=== PATIENT | male | born 1975 | race American Indian/Alaskan Native ===

== ENCOUNTER 2016-09-30 11:13 | Emergency (ER) | payer OTHER ==
[2016-09-30 11:17] VITALS: BP 113/87; PULSE 77; TEMP 98.1; BMI 35.2
== END 2016-09-30 14:06 | disposition left against medical advice (07) ==
LOC: JER 11:13
DX: Z53.21 Procedure and treatment not carried out due to patient leaving prior to being seen by health care provider (principal)
CPT/HCPCS: 99283-25

== ENCOUNTER 2017-02-21 18:56 | Emergency (ER) | payer OTHER ==
[2017-02-21 19:11] VITALS: BP 169/113; PULSE 92; TEMP 98.7; BMI 34.7
[2017-02-21] MEDS ORDERED: ONDANSETRON 4 MG/2 ML VIAL IVPB ONE (19:12)
[2017-02-21] MEDS ORDERED: morphine CARPU-JECT 4 MG/1 ML DISP.SYRIN IVPUSH ONE ×2 (19:12→20:07)
[2017-02-21 19:29] LABS: BASOPHIL 0.3 % (0-2.0); EOSINOPHIL 5.7 % (0-4.5); MCH 22.5 pg (25.7-33.7); MCHC 31.8 g/dl (32.0-35.9); MEAN CELL VOLUME 70.9 fl (80-96); MEAN PLT VOLUME 8.8 fl (7.5-11.1); NEUTROPHILS 52.9 % (42.8-82.8); PLATELET COUNT 187 K/MM3 (134-434); RDW 14.3 % (11.9-15.9)
[2017-02-21] MEDS ORDERED: ONDANSETRON 4 MG/2 ML VIAL IVPUSH ONE (19:36)
[2017-02-21] MEDS ORDERED: KETOROLAC TROMETHAMINE 30 MG/1 ML VIAL IVPUSH ONE (19:36)
[2017-02-21 19:46] LABS: INR 1.12 (0.82-1.09); PROTHROMBIN TIME (PATIENT) 12.4 SEC (9.98-11.88)
--- NOTE | 2017-02-21 19:50 | PDOC ---
History of Present Illness - General Chief Complaint: Pain, Acute Stated Complaint: PASSED OUT Time Seen by Provider: 02/21/17 19:04 History Source: Patient Exam Limitations: No Limitations - History of Present Illness Initial Comments: 02/21/17 19:44 Patient is a 41M with history of seizures, alcohol abuse and HCV s/p lakeisha here today complaining of abdominal and flank pain with urinary retention. He endorses associated nausea, shortness of breath and blood in urine. He states that he hasn't urinated since last night. He says the pain started around noon today. He says that he is short of breath because it hurts to take a deep breath in. He denies any seizure activity, chest pain. He's never had any surgery on his abdomen. He reports that he doesn't drink anymore and does not take anything for his seizures. Past History - Past Medical History Allergies/Adverse Reactions: Allergies Allergy/AdvReac Type Severity Reaction Status Date / Time phenytoin sodium extended Allergy Intermediate Itching Verified 02/21/17 18:59 [From Dilantin] Home Medications: Ambulatory Orders Ibuprofen [Motrin -] 600 mg PO TID PRN #60 tablet MDD 3 02/21/17 Oxycodone HCl/Acetaminophen [Percocet 5-325 mg Tablet] 1 tab PO Q6H #15 tablet MDD 4 02/21/17 Liver Disease: Yes Seizures: Yes - Surgical History Neurologic Surgery: Yes - Suicide/Smoking/Psychosocial Hx Smoking History: Current every day smoker Have you smoked in the past 12 months: Yes Number of Cigarettes Smoked Daily: 20 Information on smoking cessation initiated: No 'Breaking Loose' booklet given: 09/30/16 Hx Alcohol Use: No Drug/Substance Use Hx: No Substance Use Type: None Review of Systems - Review of Systems Comments:: 02/21/17 19:50 GENERAL/CONSTITUTIONAL: No fever or chills. No weakness. HEAD, EYES, EARS, NOSE AND THROAT: No change in vision. No sore throat. CARDIOVASCULAR: No chest pain. Positive for shortness of breath RESPIRATORY: No cough, wheezing, or hemoptysis. GASTROINTESTINAL: Positive for nausea. Negative for vomiting, diarrhea or constipation. GENITOURINARY: Bloody discharge with urination and urinary retention MUSCULOSKELETAL: No joint or muscle swelling or pain. No neck or back pain. SKIN: No rash NEUROLOGIC: No headache, vertigo, loss of consciousness, or change in strength/ sensation. ENDOCRINE: No increased thirst. No abnormal weight change HEMATOLOGIC/LYMPHATIC: No anemia, easy bleeding, or history of blood clots. ALLERGIC/IMMUNOLOGIC: No hives or skin allergy. *Physical Exam - Vital Signs Last Vital Signs Temp Pulse Resp BP Pulse Ox 98.7 F 92 H 24 169/113 99 02/21/17 18:59 02/21/17 18:59 02/21/17 18:59 02/21/17 18:59 02/21/17 18:59 - Physical Exam Comments: 02/21/17 19:51 GENERAL: Awake, alert, and fully oriented, in acute distress, moaning and rolling in bed HEAD: No signs of trauma, normocephalic, atraumatic EYES: PERRLA, EOMI, sclera anicteric, conjunctiva clear ENT: Auricles normal inspection, hearing grossly normal, nares patent, oropharynx clear without exudates. Moist mucosa NECK: Normal ROM, supple, no lymphadenopathy, JVD, or masses LUNGS: No distress, speaks full sentences, clear to auscultation bilaterally HEART: Regular rate and rhythm, normal S1 and S2, no murmurs, rubs or gallops, peripheral pulses normal and equal bilaterally. ABDOMEN: Soft, distractable suprapubic pain, normoactive bowel sounds. No CVA tenderness. No guarding, no rebound. No masses EXTREMITIES: Normal inspection, Normal range of motion, no edema. No clubbing or cyanosis. NEUROLOGICAL: Cranial nerves II through XII grossly intact. Normal speech, no focal sensorimotor deficits, no parathesias SKIN: Warm, Dry, normal turgor, no rashes or lesions noted. Procedures - Bedside Ultrasound Other: Kidney and Bladder Remarks: 02/21/17 20:21 Mild hydronephrosis of left kidney, 1cm stone at UVJ, 33cc in bladder ED Treatment Course - LABORATORY CBC & Chemistry Diagram: 02/21/17 19:10 02/21/17 19:10 - ADDITIONAL ORDERS Additional order review: 02/21/17 19:10 RBC 6.11 H MCV 70.9 L MCHC 31.8 L RDW 14.3 MPV 8.8 Neutrophils % 52.9 Lymphocytes % 30.7 Monocytes % 10.4 H Eosinophils % 5.7 H Basophils % 0.3 Medical Decision Making - Medical Decision Making 02/21/17 19:52 41M with history of etoh abuse, ? hep c, and seizures here today complaining of abdominal pain. Tachycardic and tachypneic, other vital signs stable. Exam not consistent with peritonitis. Differential diagnosis includes, but is not limited to: urinary retention, kidney stones, uti. Will treat pain with toradol and zofran. Will evaluate with labs, ekg, bladder scan, and spiral ct. 02/21/17 20:10 Bedside ultrasound shows 1cm stone in bladder and mild hydronephrosis on left side. Bladder volume 33cc. 02/21/17 21:34 Laboratory Tests 02/21/17 02/21/17 19:10 19:10 WBC 7.0 Hgb 13.8 Hct 43.3 Plt Count 187 BUN 16 D Creatinine 1.6 H D CBC normal. Cr elevated to 1.6, baseline 0.7 02/21/17 22:20 CT shows mild left sided hydronephrosis with no stone in the the kidney or ureter. 3mm stone is identified in the bladder. 02/22/17 06:30 Patient improved after reassessment. Discharged with percocet. Alert, ambulatory and improved at discharge. *DC/Admit/Observation/Transfer Diagnosis at time of Disposition: Kidney stone - Discharge Dispostion Disposition: HOME Condition at time of disposition: Good Admit: No - Prescriptions Prescriptions: Ibuprofen [Motrin -] 600 mg PO TID PRN #60 tablet MDD 3 PRN Reason: Pain Oxycodone HCl/Acetaminophen [Percocet 5-325 mg Tablet] 1 tab PO Q6H #15 tablet MDD 4 - Referrals Referrals: Liana Joseph MD [Primary Care Provider] - Macho Tripathi MD [Staff Physician] -
[2017-02-21 19:54] LABS: ALBUMIN 3.8 g/dl (3.4-5.0); ALK PHOS 132 U/L (45-117); ANION GAP 5 (8-16); BILIRUBIN,TOTAL 0.2 mg/dL (0.2-1.0); CALCIUM 9.2 mg/dL (8.5-10.1); CO2 28 mmol/L (21-32); CREATININE 1.6 mg/dL (0.7-1.3); GLUCOSE,RANDOM 102 mg/dL (74-106); SGOT/AST 17 U/L (15-37); SGPT/ALT 30 U/L (12-78); TOT PROT 7.7 g/dl (6.4-8.2)
[2017-02-21] MEDS ORDERED: KETOROLAC TROMETHAMINE 30 MG/1 ML VIAL ONE (19:58)
[2017-02-21] MEDS ORDERED: ONDANSETRON 4 MG/2 ML VIAL ONE (19:58)
[2017-02-21] MEDS ORDERED: SODIUM CHLORIDE 1,000 ML IV STA (20:07)
[2017-02-21] MEDS ORDERED: morphine CARPU-JECT 2 MG/1 ML DISP.SYRIN ONE (20:09)
--- NOTE | 2017-02-21 20:24 | PDOC ---
Attending Attestation - Resident Resident Name: Benedicto Millard - ED Attending Attestation I have performed the following: I have examined & evaluated the patient, The case was reviewed & discussed with the resident, I agree w/resident's findings & plan, Exceptions are as noted - HPI HPI: 02/21/17 20:20 41 yo male with h/o seizure disorder here today with c/o flank pain. started last pm. radiates around to front. also c/o hematuria. and dysuria, frequency, and decreased urine output. difficulty with urination. no f/c nauseau, no vomiting. no mod factors. no trauma. no seizure recently. no known h/o renal colic, but neice with stones. - Physicial Exam PE: 02/21/17 20:21 awake alert uncomfortable. lungs clear bilat. heart rrr no mrg.a bd soft. mild mid left mid quad ttp. no rebound no guarding. left cva ttp. - Medical Decision Making 02/21/17 20:24 differential back strain. uti pyelo, renal colic. plan bedside renal us. labs pain control. possible ct. 02/21/17 20:35 focused ED ultrasound renal indication : flank pain. bilateral kidneys scanned bilaterally. mild left hydronephrosis noted. right kidney normal. 1 cm stone noted at uvj of bladder. bladder volume 33 ml. impression: 1 cm. uvj stone, mild left hydronephrosis 02/21/17 22:46 pt with stone on ct. feeling improved. ua negative. dc home given number for urology Heart Score/ECG Review #1 General ECG Interpretation: Sinus Rhythm, Normal Rate (68), Normal Intervals, No acute ischemic changes
[2017-02-21 21:49] LABS: URINE APPEARANCE SLCLOUDY; URINE BILIRUBIN NEGATIVE (NEGATIVE); URINE BLOOD 2+ (NEGATIVE); URINE COLOR YELLOW; URINE GLUCOSE (UA) NEGATIVE (NEGATIVE); URINE KETONE NEGATIVE (NEGATIVE); URINE NITRITE NEGATIVE (NEGATIVE); URINE UROBILINOGEN NEGATIVE mg/dL (0.2-1.0)
[2017-02-21 22:06] LABS: URINE PROTEIN 2+ (NEGATIVE)
[2017-02-21 22:08] LABS: URINE BACTERIA RARE /hpf (NONE SEEN); URINE MUCUS RARE; URINE RBC 143 /hpf (0-3); URINE WBC 1 /hpf (3-5)
[2017-02-22 11:33] LABS: URINE LEUK ESTERASE Negative (NEGATIVE)
--- NOTE | 2017-02-22 19:06 | EKG ---
Test Reason : Blood Pressure : / mmHG Vent. Rate : 068 BPM Atrial Rate : 068 BPM P-R Int : 160 ms QRS Dur : 098 ms QT Int : 394 ms P-R-T Axes : 028 027 006 degrees QTc Int : 418 ms NORMAL SINUS RHYTHM NONDIAGNOSTIC Q WAVES IN II III aVF PROBABLE EARLY REPOLARIZATION,CURRENT OF INJURY CANNOT BE EXCLUDED WHEN COMPARED WITH ECG OF 01 MAY 2016 CHANGES MENTIONED ABOVE RECOMMEND FOLLOW UP TRACING Confirmed by RADHA LYONS MD ([id number]) on 02/22/2017 7:05:55 PM Referred By: Confirmed By:RADHA LYONS MD
== END 2017-02-21 23:15 | disposition home or self-care (01) ==
LOC: JER 18:56
PROC: 3E0333Z Introduction of Anti-inflammatory into Peripheral Vein, Percutaneous Approach (ICD-10-PCS; principal; 2017-02-21)
PROC: 3E033NZ Introduction of Analgesics, Hypnotics, Sedatives into Peripheral Vein, Percutaneous Approach (ICD-10-PCS; 2017-02-21)
PROC: 3E033GC Introduction of Other Therapeutic Substance into Peripheral Vein, Percutaneous Approach (ICD-10-PCS; 2017-02-21)
PROC: 3E0337Z Introduction of Electrolytic and Water Balance Substance into Peripheral Vein, Percutaneous Approach (ICD-10-PCS; 2017-02-21)
DX: N20.0 Calculus of kidney (principal); F17.210 Nicotine dependence, cigarettes, uncomplicated
CPT/HCPCS: 36415; 74176; 80053; 81003; 81015; 83690; 85025; 85610; 87086; 93005; 93010; 96361; 96374; 96375; 96376; 99282-25

== ENCOUNTER 2017-07-01 13:56 | Emergency (ER) | payer OTHER ==
[2017-07-01 14:06] VITALS: BP 160/98; PULSE 75; TEMP 97.8; BMI 35.5
--- NOTE | 2017-07-01 15:33 | PDOC ---
History of Present Illness - General Chief Complaint: Ear Problem Stated Complaint: EAR PROBLEM Time Seen by Provider: 07/01/17 15:03 History Source: Patient Exam Limitations: No Limitations - History of Present Illness Initial Comments: 07/01/17 15:28 c/o right ear pain pressure and muffled hearing for one week. pt [facility]. no fever no sore throat no chills Past History - Past Medical History Allergies/Adverse Reactions: Allergies Allergy/AdvReac Type Severity Reaction Status Date / Time phenytoin sodium extended Allergy Intermediate Itching Verified 07/01/17 14:02 [From Dilantin] Home Medications: Ambulatory Orders Ibuprofen 800 mg PO TID PRN #20 tablet 07/01/17 Neomycin/Polymyxn/Hc [Cortisporin Otic Suspenstion -] 4 drop AD Q4HWA #1 bottle 07/01/17 COPD: No Kidney Stones: Yes Liver Disease: Yes Seizures: Yes - Surgical History Neurologic Surgery: Yes - Suicide/Smoking/Psychosocial Hx Smoking History: Current every day smoker Have you smoked in the past 12 months: Yes Number of Cigarettes Smoked Daily: 30 Information on smoking cessation initiated: Yes 'Breaking Loose' booklet given: 07/01/17 Hx Alcohol Use: No Drug/Substance Use Hx: No Substance Use Type: None Review of Systems - Review of Systems Able to Perform ROS?: Yes Is the patient limited Guinean proficient: No Constitutional: No: Symptoms Reported HEENTM: Yes: Symptoms Reported *Physical Exam - Vital Signs Last Vital Signs Temp Pulse Resp BP Pulse Ox 97.8 F 75 18 160/98 100 07/01/17 14:04 07/01/17 14:04 07/01/17 14:04 07/01/17 14:04 07/01/17 14:04 - Physical Exam General Appearance: Yes: Nourished, Appropriately Dressed HEENT: positive: EOMI, CM, TMs Normal, Pharynx Normal, TM Erythema (external canal with narrowing redness, dried discharge with blood, tm unable to visualize due to narrowing of canal), Other (neg mastoid tenderness, neg swelling pre and post auricular nodes ). negative: Pharyngeal Erythema, Nasal Congestion Neck: positive: Supple Respiratory/Chest: positive: Lungs Clear, Normal Breath Sounds Cardiovascular: positive: Regular Rhythm, Regular Rate Musculoskeletal: positive: Normal Inspection Extremity: positive: Normal Capillary Refill Integumentary: positive: Normal Color, Dry, Warm Medical Decision Making - Medical Decision Making 07/01/17 15:36 cc: earpain with muffled hearing for one week neg fever or chills exam consistent with AOE will prescribe cortisporin drops and ibuprofen 800mg every 8hrs for pain *DC/Admit/Observation/Transfer Diagnosis at time of Disposition: Otitis externa Qualifiers: Otitis externa type: diffuse Chronicity: acute Laterality: right Qualified Code (s): H60.311 - Diffuse otitis externa, right ear - Discharge Dispostion Disposition: HOME Condition at time of disposition: Good - Prescriptions Prescriptions: Ibuprofen 800 mg PO TID PRN #20 tablet PRN Reason: Pain Neomycin/Polymyxn/Hc [Cortisporin Otic Suspenstion -] 4 drop AD Q4HWA #1 bottle - Referrals Referrals: Liana Joseph MD [Primary Care Provider] - Gilberto Roger MD [Staff Physician] - - Patient Instructions Additional Instructions: use the ear drops as prescribed noting in the ear but the ear drops follow tomorrow with ENT as planned take motrin 800mg every 8hrs for pain as needed - Post Discharge Activity
== END 2017-07-01 15:36 | disposition home or self-care (01) ==
LOC: JERFT 13:56
DX: H66.001 Acute suppurative otitis media without spontaneous rupture of ear drum, right ear (principal)
CPT/HCPCS: 99281-25

== ENCOUNTER 2018-01-25 00:07 | Inpatient (IN) | payer MEDICARE, OTHER ==
--- NOTE | 2018-01-25 00:22 | PDOC ---
Attending Attestation - Resident Resident Name: Chantale Seaman - HPI HPI: 01/25/18 00:56 Pt presents to the ED in respiratory arrest, with his hands around his neck as though he was choking. As per nephew, patient was in her usual state of health until he was eating dinner. Nephew was not eating with him, but the nephew found the patient behaving as if he was choking. - Physicial Exam PE: 01/25/18 00:59 Patient was dusky and in respiratory distress with both hands around his neck in the sign for choking on arrival to the ED. Placed on a stretcher and hemlich manuver attempted without success. Intubated for respiratory failure and airway protection. During intubation , his tongue and vocal cords were noted to be edematous. No foreign body visualized on intubation. 01/25/18 01:02 - Critical Care Time Total Critical Care Time: 45 Critical Care Statement: The care of this patient involved high complexity decision making to prevent further life threatening deterioration of the patient 's condition and/or to evaluate & treat vital organ system(s) failure or risk of failure. - Medical Decision Making 01/25/18 01:01 Pt presents to the ED in respiratory distress, apparently choking. Intubated for respiratory failure. Differential includes angioedema or anaphyalxis, airway foreign body, less likely airway infection. Will check CT head and CT soft tissue neck and CXR and labs. Will admit to ICU. 01/25/18 01:02
[2018-01-25] MEDS ORDERED: MIDAZOLAM HCL 2 MG/2 ML SINGLE DOSE VIAL ONE (00:25)
[2018-01-25] MEDS ORDERED: methylPREDNISolone NA SUCC 125 MG/2 ML VIAL IVPB ONE (00:45)
--- NOTE | 2018-01-25 00:47 | PDOC ---
History of Present Illness - General Chief Complaint: Respiratory Arrest Stated Complaint: SEIZURE Time Seen by Provider: 01/25/18 00:22 History Source: Family Exam Limitations: Clinical Condition - History of Present Illness Initial Comments: 01/25/18 00:42 This is a 42 YOM who presented to the ED in severe respiratory distress with his hands around his throat as though he were choking. 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 This occurred just subsequent to the patient eating at home. On arrival to the ED, the patient cannot speak, is actively turning cyanotic, severe distress, clutching his throat. 01/25/18 01:00 Patient's records could not be reviewed at the time of presentation to the ED 2/ 2 clinical acuity. On review of prior [facility] records, he has h/o EtOH use, seizures, HCV s/p Harvoni treatment. Allergies to phenytoin XR. Past History - Past Medical History Allergies/Adverse Reactions: Allergies Allergy/AdvReac Type Severity Reaction Status Date / Time phenytoin sodium extended Allergy Intermediate Itching Verified 07/01/17 14:02 [From Dilantin] Home Medications: Ambulatory Orders Ibuprofen 800 mg PO TID PRN #20 tablet 07/01/17 Neomycin/Polymyxn/Hc [Cortisporin Otic Suspenstion -] 4 drop AD Q4HWA #1 bottle 07/01/17 Amoxicillin - [Amoxicillin 500mg Capsule -] 500 mg PO TID 01/25/18 Minocycline HCl 75 mg PO DAILY 01/25/18 Prednisone 10 mg PO ASDIR 01/25/18 Varenicline Tartrate [Chantix] 0.5 mg PO ASDIR 01/25/18 COPD: No Kidney Stones: Yes Liver Disease: Yes Seizures: Yes - Surgical History Neurologic Surgery: Yes - Suicide/Smoking/Psychosocial Hx Smoking History: Unknown if ever smoked Have you smoked in the past 12 months: Yes Number of Cigarettes Smoked Daily: 30 'Breaking Loose' booklet given: 07/01/17 Hx Alcohol Use: No Drug/Substance Use Hx: No Substance Use Type: None Review of Systems - Review of Systems Able to Perform ROS?: No (clinical condition) *Physical Exam - Vital Signs Last Vital Signs Temp Pulse Resp BP Pulse Ox 130 H 186/130 90 L 01/25/18 00:10 01/25/18 00:10 01/25/18 00:10 - Physical Exam General Appearance: Yes: Severe Distress, Other (in severe respiratory distress , clutching throat with both hands, cyanotic) HEENT: positive: EOMI, Other (bilateral moderate scleral injection). negative: Scleral Icterus (R), Scleral Icterus (L) Neck: positive: Trachea midline, Other (fullness and firmness to the midsaggital inferior mandible). negative: Tender Respiratory/Chest: positive: Respiratory Distress (severe), Stridor, Other ( facial cyanosis, unable to protect airway, severely diminished breath sounds bilaterally) Cardiovascular: positive: Regular Rhythm, S1, S2, Tachycardia. negative: Edema , JVD Vascular Pulses: Femoral (R): 2+, Femoral (L): 2+ Gastrointestinal/Abdominal: positive: Normal Bowel Sounds, Soft, Protuberent. negative: Organomegaly, Pulsatile Mass, Guarding Musculoskeletal: positive: Normal Inspection. 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 teacher II-XII NML intact (grossly), Alert, Motor Strength 5/5 , Other (panicked mood) Procedures - Intubation Time of Intubation: 00:31 Intubation Method: orotracheal Blade used: Mac Tube Size (Fr): 7.5 Medications: Etomidate, Succinylcholine Tube position @ lip (cm): 22 Tube position confirmed by: Direct visualization, CO2 detector, Chest x-ray, Breath sounds Breath Sounds after Intubation: equal Intubation Complications: no complications Post Intubation Xray: Yes ED Treatment Course - LABORATORY CBC & Chemistry Diagram: 01/25/18 01:20 01/25/18 01:20 Medical Decision Making - Medical Decision Making Pt p/w respiratory arrest from apparent airway obstruction. ED staff attempts Heimlich maneuver multiple times; patient remains clenching throat and in distress. Patient becomes lethargic, still clutching throat, unable to protect airway, appears to be losing consciousness. Upward leftward gaze deviation with nystagmus is noted prior to medication administration. Exam: As noted in Physical Exam section. DDX IBNLT: Airway obstruction d/t inhaled FB, angioedema, edema/swelling, Que 's angina, airway trauma; pneumothorax, etc. W/U ordered: Monitor, EKG, CXR, Labs TX ordered: O2, AmbuBag, Large bore IV Procedures done: Intubation Vital Signs Temperature Pulse Rate 130 H 01/25/18 00:10 Respiratory Rate 18 01/25/18 00:30 Blood Pressure 186/130 01/25/18 00:10 O2 Sat by Pulse Oximetry (%) 90 L 01/25/18 00:10 01/25/18 00:10 20 mg etomidate given IV push; patient incomplete sedation. 01/25/18 00:11 Additional 10 mg etomidate given. Immediately afterward full dose succinylcholine given. 01/25/18 00:11 7.5 ET tube placed using Mac 4, direct visualization, edematous tongue/ epiglottis/vocal cords, 22 at teeth. +tube condensation, color change, bilateral wet breath sounds but equal, no epigastric sounds. 01/25/18 00:28 Propofol given IV push as patient becoming more agitated, attempting to grab tube. Very agitated and must be held down by 4 staff members. Patient clenching tube in teeth, unable to suction within tube, increasing agitation. 01/25/18 00:31 100 mg rocuronium given as patient is still clenched on ET tube. Subsequently well sedated and paralyzed. Breath sounds re-checked and remain equal bilaterally, no epigastric sounds. Patient satting well. CXR portable done and awaiting population into PACS. 01/25/18 01:05 Patient's care endorsed to Dr. Deandra Monk at the end of my shift. Pending full workup and admission, likely ICU. *DC/Admit/Observation/Transfer Diagnosis at time of Disposition: Respiratory arrest, Airway obstruction - Discharge Dispostion Condition at time of disposition: Guarded - Referrals - Patient Instructions - Post Discharge Activity
[2018-01-25] MEDS ORDERED: ROCURONIUM BROMIDE 50 MG/5 ML VIAL IV ONE ×2 (01:29→02:50)
[2018-01-25] MEDS ORDERED: ETOMIDATE 40 MG/20 ML VIAL IVPUSH ONE (01:29)
[2018-01-25] MEDS ORDERED: SUCCINYLCHOLINE CHLORIDE 200 MG/10 ML VIAL IVPUSH ONE (01:29)
[2018-01-25 01:32] LABS: URINE APPEARANCE CLEAR; URINE BILIRUBIN NEGATIVE (<2.0 mg/dL); URINE COLOR YELLOW; URINE GLUCOSE (UA) NEGATIVE (NEGATIVE); URINE KETONE NEGATIVE (NEGATIVE); URINE LEUK ESTERASE NEGATIVE (NEGATIVE); URINE NITRITE NEGATIVE (NEGATIVE); URINE PROTEIN 2+ (NEGATIVE); URINE UROBILINOGEN NEGATIVE mg/dL (0.2-1.0)
[2018-01-25 01:34] LABS: BASO % 0.3 % (0-2.0); EOS % 4.7 % (0-4.5); LYMPH % 28.3 % (8-40); MCHC 32.6 g/dl (32.0-35.9); MEAN CELL VOLUME 70.7 fl (80-96); MEAN PLT VOLUME 8.2 fl (7.5-11.1); MONO % 9.1 % (3.8-10.2); NEUT % 57.6 % (42.8-82.8); PLATELET COUNT 200 K/MM3 (134-434); RBC 6.08 M/mm3 (4.00-5.60); WHITE BLOOD COUNT 7.1 K/mm3 (4.0-10.0)
[2018-01-25 01:36] LABS: EPI CELLS RARE /HPF (FEW); URINE BACTERIA FEW /hpf (NONE SEEN); URINE HYALINE CAST 4 /lpf; URINE MUCUS FEW
[2018-01-25] MEDS: PROPOFOL 1,000,000 MCG/100 ML VIAL IVPB SCH ×6 (01:44→17:43)
[2018-01-25 01:50] LABS: VENOUS PH 7.27 (7.32-7.42)
[2018-01-25 01:51] LABS: VENOUS PO2 75.9 mmHg (28-48)
[2018-01-25 01:55] LABS: ALBUMIN 3.8 g/dl (3.4-5.0); ANION GAP 6 MMOL/L (8-16); BILIRUBIN,TOTAL 0.5 mg/dL (0.2-1.0); BLOOD UREA NITROGEN 15 mg/dL (7-18); CALCIUM 8.4 mg/dL (8.5-10.1); CHLORIDE 103 mmol/L (98-107); CO2 28 mmol/L (21-32); CREATININE 0.6 mg/dL (0.7-1.3); GLUCOSE,RANDOM 126 mg/dL (74-106); SGPT/ALT 56 U/L (12-78); SODIUM 137 mmol/L (136-145); TOT PROT 7.8 g/dl (6.4-8.2)
[2018-01-25 01:55] LABS: VENOUS PC02 60.4 mmHg (38-52)
[2018-01-25 01:58] LABS: ALK PHOS 120 U/L (45-117); POTASSIUM 3.8 mmol/L (3.5-5.1); SGOT/AST 32 U/L (15-37)
[2018-01-25 02:04] LABS: INR 1.05 (0.83-1.09); PROTHROMBIN TIME (PATIENT) 11.9 SEC (9.7-13.0)
[2018-01-25 02:06] LABS: ACTIVATED PTT 30.5 SECONDS (25.2-36.5)
--- NOTE | 2018-01-25 02:25 | PDOC ---
*Physical Exam - Vital Signs Last Vital Signs Temp Pulse Resp BP Pulse Ox 130 H 18 186/130 90 L 01/25/18 00:10 01/25/18 00:30 01/25/18 00:10 01/25/18 00:10 - Physical Exam Comments: General: Intubated, sedated HEENT: Copious secretions, ETT in place, submandibular tissue w/ fullness Cards: RRR, no murmur appreciated Pulm: Intubated Abd: Soft, nontender, nondistended Ext: Atraumatic. No LE edema. Vasc: Extremities WWP. Neuro: Sedated, CN grossly intact ED Treatment Course - LABORATORY CBC & Chemistry Diagram: 01/25/18 01:20 01/25/18 01:20 - ADDITIONAL ORDERS Additional order review: Laboratory Results 01/25/18 01/25/18 01/25/18 01:40 01:20 01:20 PT with INR 11.90 INR 1.05 PTT (Actin FS) 30.5 VBG pH 7.27 L POC VBG pCO2 60.4 H* POC VBG pO2 75.9 H Mixed VBG HCO3 26.7 H Sodium Potassium Chloride Carbon Dioxide Anion Gap BUN Creatinine Creat Clearance w eGFR Random Glucose Lactic Acid Calcium Total Bilirubin AST ALT Alkaline Phosphatase Creatine Kinase Creatine Kinase Index CK-MB (CK-2) Troponin I Total Protein Albumin Urine Color Yellow Urine Appearance Clear Urine pH 5.0 D Ur Specific [place] 1.021 Urine Protein 2+ H Urine Glucose (UA) Negative Urine Ketones Negative Urine Blood Negative Urine Nitrite Negative Urine Bilirubin Negative Urine Urobilinogen Negative Ur Leukocyte Esterase Negative Urine WBC (Auto) 2 Urine RBC (Auto) 1 Ur Epithelial Cells Rare Urine Bacteria Few Hyaline Casts 4 Urine Mucus Few 01/25/18 01/25/18 01:20 01:20 PT with INR INR PTT (Actin FS) VBG pH POC VBG pCO2 POC VBG pO2 Mixed VBG HCO3 Sodium 137 Potassium 3.8 Chloride 103 Carbon Dioxide 28 Anion Gap 6 L BUN 15 Creatinine 0.6 L Creat Clearance w eGFR > 60 Random Glucose 126 H D Lactic Acid 1.1 Calcium 8.4 L Total Bilirubin 0.5 AST 32 D ALT 56 D Alkaline Phosphatase 120 H Creatine Kinase 153 Creatine Kinase Index 0.9 CK-MB (CK-2) 1.52 Troponin I < 0.02 Total Protein 7.8 Albumin 3.8 Urine Color Urine Appearance Urine pH Ur Specific [place] Urine Protein Urine Glucose (UA) Urine Ketones Urine Blood Urine Nitrite Urine Bilirubin Urine Urobilinogen Ur Leukocyte Esterase Urine WBC (Auto) Urine RBC (Auto) Ur Epithelial Cells Urine Bacteria Hyaline Casts Urine Mucus 01/25/18 01:20 RBC 6.08 H MCV 70.7 L MCHC 32.6 RDW 14.0 MPV 8.2 Neutrophils % 57.6 Lymphocytes % 28.3 Monocytes % 9.1 Eosinophils % 4.7 H Basophils % 0.3 - Medications Given in the ED: ED Medications Discontinued Medications Generic Name Dose Route Start Last Admin Trade Name Freq PRN Reason Stop Dose Admin Rocuronium [place] 100 mg 01/25/18 01:29 01/25/18 01:54 Zemuron - IV 01/25/18 01:30 100 mg ONCE ONE Administration Medical Decision Making - Medical Decision Making 01/25/18 02:22 Juarez Sweeney is a 42yo man with a h/o alcoholic seizure, current smoking who was brought to the ED by his nephew. On presentation, his hands were to his throat as though he was choking, and he was noted to be cyanotic. - The heimlich was attempted without success - Mr Sweeney became unconscious, and he was intubated. Edema to the tongue, epiglottis and vocal cords was noted - He continued to have copious secretions - Labs completed, no obvious abnormalities - Difficulty with continued sedation. On propofol drip, to max dose, started fentanyl drip - Discussed with ICU for admission - Plan to obtain CT neck soft tissue on the way to the ICU; if needed will give additional rocuronium to prevent extubation Seen with Dr Andrews. *DC/Admit/Observation/Transfer Diagnosis at time of Disposition: Respiratory arrest, Airway obstruction - Discharge Dispostion Condition at time of disposition: Guarded Decision to Admit order: Yes - Referrals Referrals: Liana Joseph MD [Primary Care Provider] - - Patient Instructions - Post Discharge Activity
[2018-01-25] MEDS ORDERED: PIPERACILLIN/TAZOB 4.5 GM 4.5 GM in DEXTROSE 5%-WATER 100 ML IVPB SCH (03:15)
--- NOTE | 2018-01-25 03:29 | CON.PULM ---
Consult Consult Specialty:: Pulm/CCM Reason for Consultation:: airway obstruction, respiratory failure - History of Present Illness Chief Complaint: SOB, choking History of Present Illness: This is a 42 yo man with PMH: seizure felt 2/2 EtOH abuse, Hep C presented to ED with SOB and upper airway obstruction. Per family the patient was in his usual state of health until today when he was unable to talk make the universal choking sign with hands to neck. It is unclear what the precipitate was but per report the patient had been eating prior to event. His family was able to drive him to the ED. In the ED given concern for upper airway obstruction the heimlich maneuver was performed until the patient lost consciousness and was emergently intubated. Under direct laryngoscopy he was noted to have swollen tongue, epiglottis and vocal cords. ETT was easily passed w/o evidence of foreign body aspiration. Post intuition he had equal breath sounds w/o wheeze. On further exam he has submandibular fullness, no rash or other signs of acute allergic reaction. BP hypertensive (SBP 160s). Cultures sent. CT head and neck done. On arrival to ICU patient sedated with propofol and fentanyl drips. 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 Gastrointestinal: Yes: Other (Hepatitis C) - Alcohol/Substance Use Hx Alcohol Use: No Number of Drinks Daily: 4 History of Substance Use: reports: None - Smoking History Smoking history: Unknown if ever smoked Have you smoked in the past 12 months: Yes Aproximately how many cigarettes per day: 30 Home Medications - Allergies Allergies/Adverse Reactions: Allergies Allergy/AdvReac Type Severity Reaction Status Date / Time phenytoin sodium extended Allergy Intermediate Itching Verified 07/01/17 14:02 [From Dilantin] - Home Medications Home Medications: Ambulatory Orders Ibuprofen 800 mg PO TID PRN #20 tablet 07/01/17 Neomycin/Polymyxn/Hc [Cortisporin Otic Suspenstion -] 4 drop AD Q4HWA #1 bottle 07/01/17 Amoxicillin - [Amoxicillin 500mg Capsule -] 500 mg PO TID 01/25/18 Minocycline HCl 75 mg PO DAILY 01/25/18 Prednisone 10 mg PO ASDIR 01/25/18 Varenicline Tartrate [Chantix] 0.5 mg PO ASDIR 01/25/18 Family Disease History - Family Disease History Family Disease History: Heart Disease: Grandparent ( from [place]), Father ( from [place]), Mother ( from [place]) Review of Systems Unable to obtain ROS, reason: intubation Physical Exam Vital Sings: Vital Signs Temperature 98.7 F 01/25/18 03:08 Pulse Rate 105 H 01/25/18 03:08 Respiratory Rate 18 01/25/18 03:08 Blood Pressure 145/94 01/25/18 03:08 O2 Sat by Pulse Oximetry (%) 100 01/25/18 03:08 Current Medications Dexamethasone Sodium Phosphate (Decadron Injection -) 4 mg IVPUSH Q6H-IV BREANNA Diphenhydramine HCl (Benadryl Injection -) 50 mg IVPUSH Q6H BREANNA Stop: 01/25/18 21:16 Propofol (Diprivan -) 1,000,000 mcg in 100 mls @ 2.858 mls/hr IVPB TITR BREANNA; Protocol Stop: 01/26/18 23:59 Last Admin: 01/25/18 01:44 Dose: 5 mcg/kg/min, 2.858 mls/hr Fentanyl 500 mcg/ Dextrose 100 mls @ 10 mls/hr IVPB TITR BREANNA Piperacillin Sod/Tazobactam (Sod 4.5 gm/ Dextrose) 100 mls @ 200 mls/hr IVPB Q8H-IV BREANNA; Protocol Piperacillin Sod/Tazobactam (Sod 4.5 gm/ Dextrose) 100 mls @ 200 mls/hr IVPB Q8H-IV BREANNA; Protocol Stop: 01/25/18 03:44 Famotidine/Sodium Chloride (Pepcid 20 Mg Premixed Ivpb -) 20 mg in 50 mls @ 100 mls/hr IVPB BID BREANNA Constitutional: Yes: Calm Eyes: Yes: PERRL HENT: Yes: Other (intubated, swollen tongue, no periorbital of lip swelling noted. unable to examine teeth given ETT. ) Neck: Yes: Rigid, Other (submandibular fullness) Cardiovascular: Yes: Regular Rate and Rhythm, S1, S2 Respiratory: Yes: CTA Bilaterally, Intubated, Mechanically Ventilated Gastrointestinal: Yes: Normal Bowel Sounds, Soft Extremities: Yes: WNL Edema: No Neurological: Yes: Other (Sedated: RASS -3/4 ) Labs: CBC, BMP 01/25/18 01:20 01/25/18 01:20 Imaging - Results Chest X-ray: Report Reviewed, Image Reviewed (ETT in satisfactory position. No focal consolidation noted.) Cat Scan: Pending, Image Reviewed (Bilateral depenant LL consolidation) Problem List - Problems (1) Airway obstruction Code(s): J98.8 - OTHER SPECIFIED RESPIRATORY DISORDERS (2) Respiratory arrest Code(s): R09.2 - RESPIRATORY ARREST (3) Aspiration into lower respiratory tract Code(s): T17.800A - UNSP FOREIGN BODY IN OTH PRT RESP TRACT CAUSING ASPHYX, INIT Assessment/Plan A/P: This is a 42 yo man with previous h/o HCV, EtOH abuse c/b seizures who presented with rapidly progressive upper airway obstruction differentials c/f angioedema (unclear if patent take medications) vs allergic reaction though no other signs of anaphylaxis or rash vs lovely's angina. CT also shows dependant bilateral LL consolidation c/f aspiration pneumonitis vs pneumonia -mechanical ventilation, maintain airway protection with cuff leak checks -sedation for vent synchrony . Goal RASS -3/4 -aldana culture: blood, sputum, urine -f/u CT of Neck -ENT consult, to evaluate for possible oral abscess -bilateral UE dopplers to evaluate for Lemierre's syndrome -start zosyn for GN and anaerobic coverage of possible deep sedated cellulitis ( lovely angina) and aspiration -Steroids: decadron 4mg q6hr -benadryl and pepcid for histamine blockade -UTOX -smoking cessation upon discharge -UFH sq and PPI for prophylaxis Boerem ACNP Pulm/CCM CCT: 35m
[2018-01-25] MEDS ORDERED: fentaNYL CITRATE 250 MCG/5 ML VIAL ONE ×4 (03:51→20:42)
[2018-01-25] MEDS: FENTANYL INJECTION 500 MCG in DEXTROSE 5%-WATER - 90 ML IVPB SCH ×3 (04:00→21:08)
[2018-01-25] MEDS: DEXAMETHASONE SOD PHOSPHATE 4 MG/1 ML VIAL IVPUSH SCH ×4 (04:30→21:07)
[2018-01-25] MEDS ORDERED: PIPERACILLIN/TAZOBACTAM 4.5 GM VIAL IVPB ONE ×3 (04:32→17:34)
[2018-01-25] MEDS ORDERED: DEXTROSE 5%-WATER 100 ML IVPB ONE ×3 (04:32→17:34)
--- NOTE | 2018-01-25 05:37 | HP ---
Admitting History and Physical - Admission Chief Complaint: respiraroty distress History of Present Illness: 42 y/o male patient presented to the ER with SOB that happened accutely according to the patient family member, he was sitting in the kitchen eating and comes running with the chocking sign, the nephew takes him to the ER. 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 Gastrointestinal: Yes: Other (Hepatitis C) - Smoking History Smoking history: Unknown if ever smoked Have you smoked in the past 12 months: Yes Aproximately how many cigarettes per day: 30 - Alcohol/Substance Use Hx Alcohol Use: No Number of Drinks Daily: 4 History of Substance Use: reports: None Home Medications - Allergies Allergies/Adverse Reactions: Allergies Allergy/AdvReac Type Severity Reaction Status Date / Time phenytoin sodium extended Allergy Intermediate Itching Verified 07/01/17 14:02 [From Dilantin] - Home Medications Home Medications: Ambulatory Orders Ibuprofen 800 mg PO TID PRN #20 tablet 07/01/17 Neomycin/Polymyxn/Hc [Cortisporin Otic Suspenstion -] 4 drop AD Q4HWA #1 bottle 07/01/17 Amoxicillin - [Amoxicillin 500mg Capsule -] 500 mg PO TID 01/25/18 Minocycline HCl 75 mg PO DAILY 01/25/18 Prednisone 10 mg PO ASDIR 01/25/18 Varenicline Tartrate [Chantix] 0.5 mg PO ASDIR 01/25/18 Family Disease History - Family Disease History Family Disease History: Heart Disease: Grandparent ( from [place]), Father ( from [place]), Mother ( from [place]) Review of Systems Unable to obtain ROS, reason: intubated Physical Examination Vital Signs: Vital Signs Temperature 97.6 F 01/25/18 03:52 Pulse Rate 93 H 01/25/18 03:52 Respiratory Rate 21 01/25/18 04:07 Blood Pressure 148/95 01/25/18 03:52 O2 Sat by Pulse Oximetry (%) 99 01/25/18 04:07 Constitutional: Yes: Well Nourished, No Distress, Calm, Obese Eyes: Yes: WNL, Conjunctiva Clear, EOM Intact HENT: Yes: WNL, Atraumatic, Normocephalic Neck: Yes: WNL, Supple, Trachea Midline Cardiovascular: Yes: WNL, Regular Rate and Rhythm Respiratory: Yes: WNL, Regular, CTA Bilaterally Gastrointestinal: Yes: WNL, Normal Bowel Sounds, Soft, Abdomen, Obese ...Rectal Exam: Yes: Deferred Musculoskeletal: Yes: WNL Extremities: Yes: WNL Labs: CBC, BMP 01/25/18 01:20 01/25/18 01:20 Imaging - Results X-ray: Report Reviewed, Image Reviewed Cat Scan: Report Reviewed, Image Reviewed EKG: Report Reviewed, Image Reviewed Problem List - Problems (1) Acute hypoxemic respiratory failure Assessment/Plan: this is 42 y/o male patient with hx of HCV, alcohol abuse, seizure disorder admitted for an acute hypoxemic respiratory failure 2/2 upper airway obstruction s/p intubation DDX for rapidly progressive upper airway obstruction differentials - angioedema - allergic reaction unlikely due to no other signs of shock present - lovely's angina. -mechanical ventilation, maintain airway protection with cuff leak checks -sedation for vent synchrony . Goal RASS -3/4 -ENT consult, to evaluate for possible oral abscess -bilateral UE dopplers to evaluate for Lemierre's syndrome -Steroids: dexamethasone 4mg q6hr - diphenhydramine -UFH sq and PPI for prophylaxis Code(s): J96.01 - ACUTE RESPIRATORY FAILURE WITH HYPOXIA (2) Airway obstruction Assessment/Plan: 2/2 upper abscess Code(s): J98.8 - OTHER SPECIFIED RESPIRATORY DISORDERS (3) Aspiration into lower respiratory tract Assessment/Plan: CT also shows dependant bilateral LL consolidation c/f aspiration pneumonitis vs pneumonia start the patient on pipercillin/tazobactam start patient on vancomycin Code(s): T17.800A - UNSP FOREIGN BODY IN OTH PRT RESP TRACT CAUSING ASPHYX, INIT
[2018-01-25] MEDS: HEPARIN NA (PORCINE) 5,000 UNITS/ML 1ML VIAL SQ SCH ×3 (06:20→21:07)
--- NOTE | 2018-01-25 08:47 | PN ---
Progress Note, Physician History of Present Illness: 42 y/o male patient with hx of HCV, alcohol abuse, seizure disorder admitted for an acute hypoxemic respiratory failure 2/2 upper airway obstruction s/p intubation - Current Medication List Current Medications: Active Medications Dexamethasone Sodium Phosphate (Decadron Injection -) 4 mg IVPUSH Q6H-IV BREANNA Last Admin: 01/25/18 04:30 Dose: 4 mg Diphenhydramine HCl (Benadryl Injection -) 50 mg IVPUSH Q6H BREANNA Stop: 01/25/18 21:16 Last Admin: 01/25/18 04:30 Dose: 50 mg Heparin Sodium (Porcine) (Heparin -) 5,000 unit SQ TID BREANNA Last Admin: 01/25/18 06:20 Dose: 5,000 unit Propofol (Diprivan -) 1,000,000 mcg in 100 mls @ 2.858 mls/hr IVPB TITR BREANNA; Protocol Stop: 01/26/18 23:59 Last Admin: 01/25/18 01:44 Dose: 5 mcg/kg/min, 2.858 mls/hr Fentanyl 500 mcg/ Dextrose 100 mls @ 10 mls/hr IVPB TITR BREANNA Last Admin: 01/25/18 04:00 Dose: 50 mcg/hr, 10 mls/hr Piperacillin Sod/Tazobactam (Sod 4.5 gm/ Dextrose) 100 mls @ 200 mls/hr IVPB Q8H-IV BREANNA; Protocol Famotidine/Sodium Chloride (Pepcid 20 Mg Premixed Ivpb -) 20 mg in 50 mls @ 100 mls/hr IVPB BID BREANNA - Objective Vital Signs: Vital Signs Temperature 97.6 F 01/25/18 08:00 Pulse Rate 81 01/25/18 08:00 Respiratory Rate 19 01/25/18 08:00 Blood Pressure 124/76 01/25/18 08:00 O2 Sat by Pulse Oximetry (%) 96 01/25/18 08:00 Cardiovascular: Yes: Regular Rate and Rhythm Respiratory: Yes: Mechanically Ventilated Gastrointestinal: Yes: Normal Bowel Sounds, Soft Neurological: Yes: Unresponsive (ON SEDATION) Labs: CBC, BMP 01/25/18 01:20 01/25/18 01:20 INR, PTT INR 1.05 (0.83-1.09) 01/25/18 01:20 Problem List - Problems (1) Acute hypoxemic respiratory failure Assessment/Plan: -mechanical ventilation, maintain airway protection with cuff leak checks -sedation for vent synchrony . Goal RASS -3/4 -ENT consult, to evaluate for possible oral abscess -bilateral UE dopplers to evaluate for Lemierre's syndrome -Steroids: dexamethasone 4mg q6hr - diphenhydramine -UFH sq and PPI for prophylaxis ( Code(s): J96.01 - ACUTE RESPIRATORY FAILURE WITH HYPOXIA (2) Airway obstruction Assessment/Plan: -rapidly progressive upper airway obstruction - angioedema - R/O infectious etiology - lovely's angina. Code(s): J98.8 - OTHER SPECIFIED RESPIRATORY DISORDERS (3) Respiratory arrest Code(s): R09.2 - RESPIRATORY ARREST (4) Pneumonia Assessment/Plan: -r/o aspiration CT also shows dependant bilateral LL consolidation c/f aspiration pneumonitis vs pneumonia start the patient on pipercillin/tazobactam start patient on vancomycin id consult Code(s): J18.9 - PNEUMONIA, UNSPECIFIED ORGANISM
[2018-01-25] MEDS: FAMOTIDINE 20 MG/50 ML IVPB 20 MG/50 ML MG IVPB SCH ×2 (09:28→21:08)
[2018-01-25 10:11] LABS: BASO % 0.1 % (0-2.0); EOS % 0.9 % (0-4.5); HEMATOCRIT 44.5 % (35.4-49); HEMOGLOBIN 13.9 GM/dL (11.7-16.9); MCH 22.2 pg (25.7-33.7); MCHC 31.2 g/dl (32.0-35.9); MEAN CELL VOLUME 71.1 fl (80-96); MEAN PLT VOLUME 8.2 fl (7.5-11.1); MONO % 2.6 % (3.8-10.2); NEUT % 84.4 % (42.8-82.8); PLATELET COUNT 196 K/MM3 (134-434); RBC 6.26 M/mm3 (4.00-5.60); RDW 14.5 % (11.9-15.9); WHITE BLOOD COUNT 7.4 K/mm3 (4.0-10.0)
[2018-01-25 10:30] LABS: ARTERIAL BLD GAS O2 SATURATION 96.6 % (90-98.9); ARTERIAL BLOOD GAS BASE EXCESS -0.3 meq/l (-2-2); ARTERIAL BLOOD GAS PCO2 46.9 mmHg (35-45); ARTERIAL BLOOD GAS PO2 91.7 mmHg (80-100); ARTERIAL BLOOD GAS pH 7.35 (7.35-7.45)
[2018-01-25 10:31] LABS: ALLENS TEST POSITIVE
[2018-01-25 10:45] LABS: ALBUMIN 3.8 g/dl (3.4-5.0); ANION GAP 8 MMOL/L (8-16); BILIRUBIN,TOTAL 0.4 mg/dL (0.2-1.0); BLOOD UREA NITROGEN 14 mg/dL (7-18); CHLORIDE 105 mmol/L (98-107); CO2 25 mmol/L (21-32); CREATININE 0.7 mg/dL (0.7-1.3); GLUCOSE,RANDOM 135 mg/dL (74-106); POTASSIUM 4.6 mmol/L (3.5-5.1); SGOT/AST 34 U/L (15-37); SGPT/ALT 59 U/L (12-78); SODIUM 138 mmol/L (136-145); TOT PROT 7.6 g/dl (6.4-8.2)
[2018-01-25 10:53] LABS: ALK PHOS 123 U/L (45-117)
--- NOTE | 2018-01-25 13:14 | PN ---
Progress Note (short form) - Note Progress Note: ID consult dictated imp/reccd 42 year old man admitted from home-nephew at the bedsid brought to ED by Nephew who found him in the living room where he had been playing with his phone- hands around his neck unable to breath 1130 last night he had last spoken with him at 6pm and he was normal then without complaints nephew is not aware if he had eaten anything at that time intubated emergently in the ED head ct negative cxray with right peritracheal fullness and congestion neck ct with contrast- 6 mm right parotid enhancement also bilateral upperlobe infiltrates per nephew who lives with him- he is a former user of ETOH- stopped 2 months ago +cigarette use seizure history- does not take meds all meds in his bag are old- all the antibiotics are at least 6 months to one year old on PE he is sedated and intubated ?submandibular fullness tongue is swollen cannot examine the mouth a/p choking ?angioedema ?ludwigs angina- but no erythema or warmth to suggest infection, wbc normal as well awaiting ENT evaluation airway secure aspliration pneumonia vancomycin/zosyn 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
[2018-01-25] MEDS ORDERED: VANCOMYCIN 1,500 MG in DEXTROSE 5%-WATER - 500 ML IVPB ONE (13:29)
[2018-01-25] MEDS: PIPERACILLIN/TAZOB 4.5 GM 4.5 GM in DEXTROSE 5%-WATER 100 ML IVPB SCH ×2 (13:30→17:40)
[2018-01-25 15:13] LABS: URINE APPEARANCE SLCLOUDY; URINE BILIRUBIN NEGATIVE (<2.0 mg/dL); URINE COLOR YELLOW; URINE GLUCOSE (UA) NEGATIVE (NEGATIVE); URINE KETONE NEGATIVE (NEGATIVE); URINE LEUK ESTERASE NEGATIVE (NEGATIVE); URINE NITRITE NEGATIVE (NEGATIVE); URINE UROBILINOGEN NEGATIVE mg/dL (0.2-1.0)
[2018-01-25 15:18] LABS: URINE PROTEIN 1+ (NEGATIVE)
[2018-01-25 15:23] LABS: CALCIUM OXALATE CRYSTALS RARE /hpf (NONE SEEN); EPI CELLS RARE /HPF (FEW); GRANULAR CASTS 1 /lpf; URINE MUCUS RARE
--- NOTE | 2018-01-25 16:42 | CONS ---
DATE OF CONSULTATION: 01/25/2018 This is a 42-year-old man. The history is really very limited. He lives in an apartment with his nephew. The history is from the nephew, who is currently at the bedside. The nephew saw him at 6 o'clock, his uncle was fine, he had no complaints whatsoever; he says later in the evening, he was in the living room playing with his cellphone, and then at 11:30, he started saying he could not breathe and acting like he was choking and holding his neck. He does not recall there being any food in the room. So he put him in the car and he drove him to [facility]. In the emergency room, he was noted to be in respiratory distress and again with both hands around his neck and they attempted to do a Heimlich maneuver, unsuccessfully, and then he was intubated emergently for respiratory failure and airway protection. He was noted, during intubation, to have an edematous tongue and vocal cords. There was no foreign body noted. I am asked to see him now for further evaluation. The nephew reports there was no history of any fevers. He says his uncle's last visit to the dentist was 2 months ago. He has a past medical history of seizures, does not take any medicines, has a history of hepatitis C. Smoking history: He is an active smoker. He used to be an active alcohol drinker but he stopped drinking 2 months ago. He is allergic to DILANTIN, which makes him itch. There is a medication list on the H&P, which is all notable for the fact that it is all old medications. He has not been started on any new medicine since June. He has not been on antibiotics at all. There is a minocycline reported that is from 2017 and Augmentin from June of this year. Family history is notable for coronary artery disease. Both his parents from heart attacks, as well as his grandparent. Review of systems is not obtainable. Per the nephew, his uncle was fine. PHYSICAL EXAMINATION: Vital Signs: He is afebrile, temperature is 97.6. Pulse of 82. Blood pressure 127/77. Respiratory rate 15. He is on 50% FiO2. General: He is intubated and sedated. HEENT: He is normocephalic. When you open his mouth, his tongue is swollen. It is hard to examine his teeth. On the lateral aspect of the left side, the lower molars, he appears to have some gingivitis. He has some fullness of his submandibular area. Lungs: Clear to auscultation. Heart: Regular rate and rhythm. Abdomen: Soft, nontender. Extremities: Without edema. His labs are notable for a white count of 7.4, hemoglobin 13.9, platelets 196, his INR is 1. His BUN is 14 and creatinine 0.7. LFTs are normal. Urinalysis is negative. Cultures of his blood and urine are pending. He had a chest x-ray that shows some right paratracheal fullness and he had a CT scan of his chest that is notable for a 6-mm enhancing nodule in the right parotid gland, and he has upper lobe pneumonia. He had a head CT that is unremarkable. In summary, this is a 42-year-old man admitted with choking, unclear whether this is angioedema. Que's angina would be unusual as no cellulitis, his neck is not woody, he has a normal white count but it seems reasonable at this time to cover him empirically with antibiotics. He has been started on piperacillin/tazobactam. Will add vancomycin at this time. Await ENT consult for further evaluation, and would consider CAT scan of the chest. Further recommendations to follow. ARMEN WEBB M.D. [id number]
--- NOTE | 2018-01-25 17:24 | CON.ENT ---
Consult Consult Specialty:: ENT Reason for Consultation:: Airway obstruction - History of Present Illness Chief Complaint: Couldn't breathe well History of Present Illness: This is a 42 YOM who presented to the ED in severe respiratory distress with his hands around his throat as though he were choking. 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 This occurred just subsequent to the patient eating at home. On arrival to the ED, he was reportedly clutching his throat, and the heimlich was done on him, and he was intubated without difficulty but some edema of tongue and vocal cords was reportedly seen.. On review of prior [facility] records, he has h/o EtOH use, seizures, HCV s/p Harvoni treatment. Allergies to phenytoin XR. 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 Gastrointestinal: Yes: Other (Hepatitis C) - Alcohol/Substance Use Hx Alcohol Use: No Number of Drinks Daily: 4 History of Substance Use: reports: None - Smoking History Smoking history: Unknown if ever smoked Have you smoked in the past 12 months: Yes Aproximately how many cigarettes per day: 30 Home Medications - Allergies Allergies/Adverse Reactions: Allergies Allergy/AdvReac Type Severity Reaction Status Date / Time phenytoin sodium extended Allergy Intermediate Itching Verified 07/01/17 14:02 [From Dilantin] - Home Medications Home Medications: Ambulatory Orders Ibuprofen 800 mg PO TID PRN #20 tablet 07/01/17 Neomycin/Polymyxn/Hc [Cortisporin Otic Suspenstion -] 4 drop AD Q4HWA #1 bottle 07/01/17 Amoxicillin - [Amoxicillin 500mg Capsule -] 500 mg PO TID 01/25/18 Minocycline HCl 75 mg PO DAILY 01/25/18 Prednisone 10 mg PO ASDIR 01/25/18 Varenicline Tartrate [Chantix] 0.5 mg PO ASDIR 01/25/18 Family Disease History - Family Disease History Family Disease History: Heart Disease: Grandparent ( from [place]), Father ( from [place]), Mother ( from [place]) Physical Exam-ENT Vital Signs: Vital Signs Temperature 98.6 F 01/25/18 14:00 Pulse Rate 102 H 09/09/18 16:00 Respiratory Rate 20 01/25/18 16:51 Blood Pressure 154/95 01/25/18 16:00 O2 Sat by Pulse Oximetry (%) 96 01/25/18 08:00 Constitutional: Yes: Other (Intubated and sedated) Head: Yes: Atraumatic Face: Yes: Symmetrical Nose: Yes: WNL Nasal Passage: Yes: WNL Oral/Pharynx: Yes: Other (No oral blood, lesion, ecchymosis, trauma nor foreign body seen nor palpated.) Outer Ear: Yes: WNL Neck: Yes: Other (Soft, no masses, but obese.) Imaging - Results Cat Scan: Report Reviewed ([address], incidental finding. No abscess cavity, nor swelling nor FB seen.), Image Reviewed Problem List - Problems (1) Airway obstruction Assessment/Plan: Unclear on the direct cause of airway distress. May have been allergy mediated, but unlikely infectious. Possibly could have been laryngospasm related to aspirating while eating, exacerbated by attempts to gag or vomit causing subsequent acidic reflux. I see no evidence of trauma, like biting his own tongue with seizure activity. I see no contraindication to extubation tomorrow if he meets the usual extubation criteria. Code(s): J98.8 - OTHER SPECIFIED RESPIRATORY DISORDERS Procedure Note Procedure: Fiberoptic laryngoscopy via left nostril shows no posterior pharyngeal masses/ blood/ lesions, but limited by ET tube. Epiglottis appears normal. Of what I can see and feel, there is nothing abnormal.
[2018-01-26] MEDS: PIPERACILLIN/TAZOB 4.5 GM 4.5 GM in DEXTROSE 5%-WATER 100 ML IVPB SCH ×3 (02:00→18:13)
[2018-01-26] MEDS: DEXAMETHASONE SOD PHOSPHATE 4 MG/1 ML VIAL IVPUSH SCH ×4 (03:30→21:14)
[2018-01-26] MEDS: VANCOMYCIN 1,250 MG in DEXTROSE 5%-WATER - 250 ML IVPB SCH ×2 (03:30→18:13)
[2018-01-26] MEDS: FENTANYL INJECTION 500 MCG in DEXTROSE 5%-WATER - 90 ML IVPB SCH ×2 (03:30→06:30)
[2018-01-26] MEDS ORDERED: fentaNYL CITRATE 250 MCG/5 ML VIAL ONE ×2 (06:16→20:15)
[2018-01-26] MEDS: PROPOFOL 1,000,000 MCG/100 ML VIAL IVPB SCH ×3 (06:30→16:21)
[2018-01-26] MEDS: HEPARIN NA (PORCINE) 5,000 UNITS/ML 1ML VIAL SQ SCH ×3 (06:30→21:15)
[2018-01-26 07:12] LABS: BASO % 0.1 % (0-2.0); HEMATOCRIT 42.1 % (35.4-49); HEMOGLOBIN 13.3 GM/dL (11.7-16.9); LYMPH % 9.2 % (8-40); MCH 22.6 pg (25.7-33.7); MCHC 31.5 g/dl (32.0-35.9); MEAN CELL VOLUME 71.8 fl (80-96); MEAN PLT VOLUME 8.7 fl (7.5-11.1); NEUT % 87.7 % (42.8-82.8); PLATELET COUNT 215 K/MM3 (134-434); RBC 5.87 M/mm3 (4.00-5.60); RDW 14.4 % (11.9-15.9); WHITE BLOOD COUNT 10.5 K/mm3 (4.0-10.0)
[2018-01-26 07:17] LABS: CHLORIDE 101 mmol/L (98-107); POTASSIUM 4.5 mmol/L (3.5-5.1); SODIUM 135 mmol/L (136-145)
--- NOTE | 2018-01-26 07:20 | PN ---
Physical Exam: SUBJECTIVE: Patient seen and examined this AM. Pt continues to be intubated. He opens his eyes to verbal stimuli, but is sedated and does not follow commands. Draining ~200 yellow urine. Family is at bedside. Pt has been stable on ventilator, no acute events overnight. Family states he has not had sz activity in ~5 months, is on no sz medication. They do not think he had sz activity prior to admission. OBJECTIVE: Vital Signs Period Temp Pulse Resp BP Sys/Barrios Pulse Ox Last 24 Hr 97.6 F-98.9 F 81-102 14-22 120-168/58-98 95-96 GENERAL: The patient is stable on the ventilator. Opens his eyes to verbal stimuli, does not follow commands. HEAD: Normal with no signs of trauma. EYES: PERRL, extraocular movements intact, sclera anicteric, conjunctiva clear. No ptosis. ENT: External ears normal, nares patent. Tongue appears edematous but pt can close his mouth. No lip or perioral edema noted. NECK: Trachea midline, full range of motion, supple. No LAD, fluctuance, or masses noted. LUNGS: Breath sounds diminshed, but equal and clear to auscultation b/l, no wheezes, no crackles, no accessory muscle use. HEART: Regular rate and rhythm, S1, S2 without murmur, rub or gallop. ABDOMEN: Soft, nontender, nondistended, normoactive bowel sounds, no guarding, no rebound, no hepatosplenomegaly, no masses. EXTREMITIES: 2+ pulses, warm, well-perfused, no pitting edema. SCDs in place. NEUROLOGICAL: Cranial nerve tests could not be performed as pt not verbal or responsive to commands. Speech and gait not observed. PSYCH: Pt sedated and lethargic. Unable to assess mood. SKIN: Warm, dry, normal turgor, no rashes or lesions noted Vent Settings: RR 16, TV 400, FiO2 50%, PEEP 5 Allergies: phenytoin Laboratory Results - last 24 hr 01/25/18 01/25/18 01/25/18 04:00 09:45 09:45 WBC 7.4 RBC 6.26 H Hgb 13.9 Hct 44.5 MCV 71.1 L MCH 22.2 L MCHC 31.2 L RDW 14.5 Plt Count 196 MPV 8.2 Absolute Neuts (auto) 6.3 Neutrophils % 84.4 H D Lymphocytes % 12.0 D Monocytes % 2.6 L Eosinophils % 0.9 D Basophils % 0.1 Nucleated RBC % 0 Anticoagulation Therapy Puncture Site ABG pH ABG pCO2 at Pt Temp ABG pO2 at Pt Temp ABG HCO3 ABG O2 Sat (Measured) ABG O2 Content ABG Base Excess Aston Test O2 Delivery Device Oxygen Flow Rate Vent Mode Vent Rate Mechanical Rate Pressure Support Vent Sodium 138 Potassium 4.6 D Chloride 105 Carbon Dioxide 25 Anion Gap 8 BUN 14 Creatinine 0.7 Creat Clearance w eGFR > 60 Random Glucose 135 H Hemoglobin A1c % Calcium 9.0 Total Bilirubin 0.4 AST 34 ALT 59 Alkaline Phosphatase 123 H Creatine Kinase 228 Creatine Kinase Index 0.9 CK-MB (CK-2) 2.19 Troponin I < 0.02 Total Protein 7.6 Albumin 3.8 TSH 0.57 D Urine Color Yellow Urine Appearance Slcloudy Urine pH 5.0 Ur Specific [place] 1.028 Urine Protein 1+ H Urine Glucose (UA) Negative Urine Ketones Negative Urine Blood Negative Urine Nitrite Negative Urine Bilirubin Negative Urine Urobilinogen Negative Ur Leukocyte Esterase Negative Urine WBC (Auto) 1 Urine RBC (Auto) None Ur Epithelial Cells Rare Calcium Oxalate Crystal Rare Granular Casts 1 Urine Mucus Rare 01/25/18 01/26/18 01/26/18 10:23 05:30 05:30 WBC RBC Hgb Hct MCV MCH MCHC RDW Plt Count MPV Absolute Neuts (auto) Neutrophils % Lymphocytes % Monocytes % Eosinophils % Basophils % Nucleated RBC % Anticoagulation Therapy No Result Required. Puncture Site Right radial ABG pH 7.35 ABG pCO2 at Pt Temp 46.9 H ABG pO2 at Pt Temp 91.7 ABG HCO3 25.2 ABG O2 Sat (Measured) 96.6 ABG O2 Content 19.4 ABG Base Excess -0.3 Aston Test Positive O2 Delivery Device No Result Required. Oxygen Flow Rate No Result Required. Vent Mode No Result Required. Vent Rate No Result Required. Mechanical Rate No Result Required. Pressure Support Vent No Result Required. Sodium 135 L Potassium 4.5 Chloride 101 Carbon Dioxide Anion Gap BUN Creatinine Creat Clearance w eGFR Random Glucose Hemoglobin A1c % 6.0 Calcium Total Bilirubin AST ALT Alkaline Phosphatase Creatine Kinase Creatine Kinase Index CK-MB (CK-2) Troponin I Total Protein Albumin TSH Urine Color Urine Appearance Urine pH Ur Specific [place] Urine Protein Urine Glucose (UA) Urine Ketones Urine Blood Urine Nitrite Urine Bilirubin Urine Urobilinogen Ur Leukocyte Esterase Urine WBC (Auto) Urine RBC (Auto) Ur Epithelial Cells Calcium Oxalate Crystal Granular Casts Urine Mucus Active Medications Generic Name Dose Route Start Last Admin Trade Name Freq PRN Reason Stop Dose Admin Dexamethasone Sodium Phosphate 4 mg 01/25/18 03:15 01/26/18 03:30 Decadron Injection - IVPUSH 4 mg Q6H-IV BREANNA Administration Heparin Sodium (Porcine) 5,000 unit 01/25/18 06:00 01/26/18 06:30 Heparin - SQ 5,000 unit TID BREANNA Administration Fentanyl 500 mcg/ Dextrose 100 mls @ 10 mls/hr 01/25/18 02:30 01/26/18 06:30 IVPB 60 mcg/hr TITR BREANNA 12 mls/hr Administration 50 MCG/HR Piperacillin Sod/Tazobactam 100 mls @ 200 mls/hr 01/25/18 13:00 01/26/18 02: 00 Sod 4.5 gm/ Dextrose IVPB 200 mls/hr Q8H-IV BREANNA Administration Protocol Famotidine/Sodium Chloride 20 mg in 50 mls @ 100 mls/hr 01/25/18 10:00 21:08 Pepcid 20 Mg Premixed Ivpb - IVPB 100 mls/hr BID BREANNA Administration Propofol 1,000,000 mcg in 100 mls @ 6.257 mls/hr 01/25/18 15:45 01/26/18 06: 30 Diprivan - IVPB 60 mcg/kg/min TITR BREANNA 37.541 mls/hr Administration Protocol 10 MCG/KG/MIN Vancomycin HCl 1,250 mg/ 250 mls @ 166.667 mls/hr 01/26/18 03:00 01/26/18 03: 30 Dextrose IVPB 166.667 mls/hr Q12H BREANNA Administration ASSESSMENT/PLAN: Pt is a 42 yo M with PMH of sz, EtOH use, HCV (s/p Harvani) who presents to the ER in respiratory distress 2/2 to choking vs angioedema vs allergic rxn vs Que angina. CT neck showed no significant soft tissue swelling, but did show b/l UL lung consolidation possibly 2/2 to aspiration. 1. Respiratory Distress -Pt is mechanically ventilated Per Pulm (Dr. Bishop): maintain airway protection with cuff leak checks; sedation for vent synchrony. Goal RASS -3/[address] - b/l UL consolidation (aspiration?) and 6 mm R partoid gland ( adenoma?) CT head showed no acute pathology. CT chest ordered today. Will follow results. Trop <.02 Per ENT (Dr. Quach): extubate if able, possible allergen or laryngospasm Laryngoscopy via L nostril showed no posterior masses or lesions Decadron 4mg q6hr -Steven culture: blood and sputum cx pending. Urine cx negative and initial UA negative. Started 4.5 g Zosyn Q8hr and 1.25 g Vanc BID per ID to cover for possible aspiration pneumonia and Gram neg for possible Que's angina Vanc trough ordered - 10; will continue Vanc until ideal value is reached. -Utox ordered to r/o any toxicologic cause of edema/AMS -Pepcid 20 IVPB BID 2. GI/ -NGT -Gomez catheter draining yellow urine 3. Prophylaxis -B/l SCDs -Heparin 5000 u TID -B/l wrist restraints to prevent pt from pulling tube Problem List - Problems (1) Acute hypoxemic respiratory failure Code(s): J96.01 - ACUTE RESPIRATORY FAILURE WITH HYPOXIA (2) Airway obstruction Code(s): J98.8 - OTHER SPECIFIED RESPIRATORY DISORDERS (3) Aspiration into lower respiratory tract Code(s): T17.800A - UNSP FOREIGN BODY IN OTH PRT RESP TRACT CAUSING ASPHYX, INIT (4) Respiratory arrest Code(s): R09.2 - RESPIRATORY ARREST Visit type - Emergency Visit Emergency Visit: Yes ED Registration Date: 01/25/18 Care time: The patient presented to the Emergency Department on the above date and was hospitalized for further evaluation of their emergent condition. - New Patient This patient is new to me today: Yes Date on this admission: 01/26/18 - Critical Care Critical Care patient: Yes Total Critical Care Time (in minutes): 40 Critical Care Statement: The care of this patient involved high complexity decision making to prevent further life threatening deterioration of the patient 's condition and/or to evaluate & treat vital organ system(s) failure or risk of failure. - Discharge Referral Referred to [facility] Med P.C.: Yes
[2018-01-26 07:23] LABS: ALBUMIN 3.6 g/dl (3.4-5.0); ALK PHOS 113 U/L (45-117); ANION GAP 9 MMOL/L (8-16); BILIRUBIN,TOTAL 0.3 mg/dL (0.2-1.0); BLOOD UREA NITROGEN 22 mg/dL (7-18); CALCIUM 8.5 mg/dL (8.5-10.1); CO2 25 mmol/L (21-32); CREATININE 1.1 mg/dL (0.7-1.3); GLUCOSE,RANDOM 163 mg/dL (74-106); SGOT/AST 24 U/L (15-37); SGPT/ALT 50 U/L (12-78); TOT PROT 7.5 g/dl (6.4-8.2)
--- NOTE | 2018-01-26 09:06 | PN ---
Progress Note (short form) - Note Progress Note: awake intubated Vital Signs Period Temp Pulse Resp BP Sys/Barrios Pulse Ox Last 24 Hr 98.2 F-98.9 F 82-102 14-22 120-168/58-98 95-96 +submandibular fullness- no erythema, no fluctuance cor-rrr lungs-decreased bs at bases abd soft,nt ext no edema CBC, BMP 01/26/18 05:30 01/26/18 05:30 Microbiology 01/25/18 01:20 Blood - Peripheral Venous Blood Culture - Preliminary NO GROWTH OBTAINED AFTER 24 HOURS, INCUBATION TO CONTINUE FOR 4 DAYS. 01/25/18 01:20 Blood - Peripheral Venous Blood Culture - Preliminary NO GROWTH OBTAINED AFTER 24 HOURS, INCUBATION TO CONTINUE FOR 4 DAYS. a/p airway obstruction choking ?angioedema ?ludwigs angina- but no erythema or warmth to suggest infection, wbc normal as well awaiting ENT evaluation airway secure aspliration pneumonia vancomycin/zosyn cultures pending review ct scan of neck consider chest ct vanco trough before next dose sputum culture Problem List - Problems (1) Airway obstruction Code(s): J98.8 - OTHER SPECIFIED RESPIRATORY DISORDERS (2) Respiratory arrest Code(s): R09.2 - RESPIRATORY ARREST (3) Aspiration into lower respiratory tract Code(s): T17.800A - UNSP FOREIGN BODY IN OTH PRT RESP TRACT CAUSING ASPHYX, INIT
[2018-01-26] MEDS ORDERED: PIPERACILLIN/TAZOBACTAM 4.5 GM VIAL IVPB ONE ×2 (09:20→17:12)
[2018-01-26] MEDS ORDERED: DEXTROSE 5%-WATER 100 ML IVPB ONE ×2 (09:21→17:12)
[2018-01-26] MEDS: FAMOTIDINE 20 MG/50 ML IVPB 20 MG/50 ML MG IVPB SCH ×2 (09:35→21:23)
--- NOTE | 2018-01-26 10:22 | PN ---
Progress Note, Physician History of Present Illness: 42 y/o male patient with hx of HCV, alcohol abuse, seizure disorder admitted for an acute hypoxemic respiratory failure 2/2 upper airway obstruction s/p intubation - Current Medication List Current Medications: Active Medications Dexamethasone Sodium Phosphate (Decadron Injection -) 4 mg IVPUSH Q6H-IV BREANNA Last Admin: 01/26/18 09:35 Dose: 4 mg Heparin Sodium (Porcine) (Heparin -) 5,000 unit SQ TID BREANNA Last Admin: 01/26/18 06:30 Dose: 5,000 unit Fentanyl 500 mcg/ Dextrose 100 mls @ 10 mls/hr IVPB TITR BREANNA Last Admin: 01/26/18 06:30 Dose: 60 mcg/hr, 12 mls/hr Piperacillin Sod/Tazobactam (Sod 4.5 gm/ Dextrose) 100 mls @ 200 mls/hr IVPB Q8H-IV BREANNA; Protocol Last Admin: 01/26/18 09:34 Dose: 200 mls/hr Famotidine/Sodium Chloride (Pepcid 20 Mg Premixed Ivpb -) 20 mg in 50 mls @ 100 mls/hr IVPB BID BREANNA Last Admin: 01/26/18 09:35 Dose: 100 mls/hr Propofol (Diprivan -) 1,000,000 mcg in 100 mls @ 6.257 mls/hr IVPB TITR BREANNA; Protocol Last Admin: 01/26/18 09:35 Dose: 60 mcg/kg/min, 37.541 mls/hr Vancomycin HCl 1,250 mg/ (Dextrose) 250 mls @ 166.667 mls/hr IVPB Q12H BREANNA Last Admin: 01/26/18 03:30 Dose: 166.667 mls/hr - Objective Vital Signs: Vital Signs Temperature 98.9 F 01/26/18 06:00 Pulse Rate 107 H 01/26/18 08:00 Respiratory Rate 17 01/26/18 08:00 Blood Pressure 132/78 01/26/18 08:00 O2 Sat by Pulse Oximetry (%) 96 01/25/18 22:00 Cardiovascular: Yes: Regular Rate and Rhythm Respiratory: Yes: Mechanically Ventilated Gastrointestinal: Yes: Normal Bowel Sounds, Soft Labs: CBC, BMP 01/26/18 05:30 01/26/18 05:30 INR, PTT INR 1.05 (0.83-1.09) 01/25/18 01:20 Problem List - Problems (1) Acute hypoxemic respiratory failure Assessment/Plan: -mechanical ventilation -ENT consult noted -Steroids: dexamethasone 4mg q6hr -UFH sq and PPI for prophylaxis ( Code(s): J96.01 - ACUTE RESPIRATORY FAILURE WITH HYPOXIA (2) Airway obstruction Assessment/Plan: -rapidly progressive upper airway obstruction - angioedema - R/O infectious etiology - lovely's angina. Code(s): J98.8 - OTHER SPECIFIED RESPIRATORY DISORDERS (3) Respiratory arrest Code(s): R09.2 - RESPIRATORY ARREST (4) Pneumonia Assessment/Plan: -r/o aspiration abx per id ct chest id consult Code(s): J18.9 - PNEUMONIA, UNSPECIFIED ORGANISM (5) Seizure Assessment/Plan: -Neuro Code(s): R56.9 - UNSPECIFIED CONVULSIONS
--- NOTE | 2018-01-26 10:37 | EKG ---
Test Reason : Blood Pressure : / mmHG Vent. Rate : 110 BPM Atrial Rate : 110 BPM P-R Int : 142 ms QRS Dur : 090 ms QT Int : 328 ms P-R-T Axes : 000 -23 009 degrees QTc Int : 443 ms SINUS TACHYCARDIA CANNOT RULE OUT ANTERIOR INFARCT , AGE UNDETERMINED ABNORMAL ECG WHEN COMPARED WITH ECG OF 21-FEB-2017 21:15, VENT. RATE HAS INCREASED BY 42 BPM Confirmed by RK PEREZ, VICKY ([id number]) on 01/26/2018 10:37:13 AM Referred By: Confirmed By:VICKY BECKMAN MD
--- NOTE | 2018-01-26 12:25 | PN ---
Teaching Attending Note Name of Resident: Evelin Warren ATTENDING PHYSICIAN STATEMENT I saw and evaluated the patient. I reviewed the resident's note and discussed the case with the resident. I agree with the resident's findings and plan as documented. SUBJECTIVE: Patient seen and examined in the ICU. Intubated and sedated on propofol and fentanyl. AC Mode of vent, 40% FiO2. No pressors. CXR: Left infiltrate/atelectasis Intake & Output 01/23/18 01/24/18 01/25/18 01/26/18 23:59 23:59 23:59 23:59 Intake Total 318 1218 Output Total 2050 600 Balance -1732 618 Weight 229 lb 14.4 oz 230 lb 3.2 oz Last Vital Signs Temp Pulse Resp BP Pulse Ox 98.5 F 108 H 17 135/81 94 L 01/26/18 10:00 01/26/18 10:00 01/26/18 11:21 01/26/18 10:00 01/26/18 09:00 Active Medications Dexamethasone Sodium Phosphate (Decadron Injection -) 4 mg IVPUSH Q6H-IV BREANNA Last Admin: 01/26/18 09:35 Dose: 4 mg Heparin Sodium (Porcine) (Heparin -) 5,000 unit SQ TID BREANNA Last Admin: 01/26/18 06:30 Dose: 5,000 unit Fentanyl 500 mcg/ Dextrose 100 mls @ 10 mls/hr IVPB TITR BREANNA Last Admin: 01/26/18 06:30 Dose: 60 mcg/hr, 12 mls/hr Piperacillin Sod/Tazobactam (Sod 4.5 gm/ Dextrose) 100 mls @ 200 mls/hr IVPB Q8H-IV BREANNA; Protocol Last Admin: 01/26/18 09:34 Dose: 200 mls/hr Famotidine/Sodium Chloride (Pepcid 20 Mg Premixed Ivpb -) 20 mg in 50 mls @ 100 mls/hr IVPB BID BREANNA Last Admin: 01/26/18 09:35 Dose: 100 mls/hr Propofol (Diprivan -) 1,000,000 mcg in 100 mls @ 6.257 mls/hr IVPB TITR BREANNA; Protocol Last Admin: 01/26/18 09:35 Dose: 60 mcg/kg/min, 37.541 mls/hr Vancomycin HCl 1,250 mg/ (Dextrose) 250 mls @ 166.667 mls/hr IVPB Q12H BREANNA Last Admin: 01/26/18 03:30 Dose: 166.667 mls/hr Constitutional: Yes: Intubated and sedated Eyes: Yes: PERRL HENT: Yes: intubated, swollen tongue, no periorbital of lip swelling noted. Neck: Yes: Rigid, Other (submandibular fullness) Cardiovascular: Yes: Regular Rate and Rhythm, S1, S2 Respiratory: Yes: Scattered rhonchi, Intubated, Mechanically Ventilated Gastrointestinal: Yes: Normal Bowel Sounds, Soft Extremities: Yes: WNL Edema: No Neurological: Yes: Sedated Labs: Laboratory Results - last 24 hr 01/25/18 01/26/18 01/26/18 04:00 05:30 05:30 WBC 10.5 H RBC 5.87 H Hgb 13.3 Hct 42.1 MCV 71.8 L MCH 22.6 L MCHC 31.5 L RDW 14.4 Plt Count 215 MPV 8.7 Absolute Neuts (auto) 9.2 H Neutrophils % 87.7 H Lymphocytes % 9.2 D Monocytes % 3.0 L Eosinophils % 0.0 D Basophils % 0.1 Nucleated RBC % 0 Sodium Potassium Chloride Carbon Dioxide Anion Gap BUN Creatinine Creat Clearance w eGFR Random Glucose Hemoglobin A1c % 6.0 Calcium Total Bilirubin AST ALT Alkaline Phosphatase Total Protein Albumin Urine Color Yellow Urine Appearance Slcloudy Urine pH 5.0 Ur Specific [place] 1.028 Urine Protein 1+ H Urine Glucose (UA) Negative Urine Ketones Negative Urine Blood Negative Urine Nitrite Negative Urine Bilirubin Negative Urine Urobilinogen Negative Ur Leukocyte Esterase Negative Urine WBC (Auto) 1 Urine RBC (Auto) None Ur Epithelial Cells Rare Calcium Oxalate Crystal Rare Granular Casts 1 Urine Mucus Rare 01/26/18 05:30 WBC RBC Hgb Hct MCV MCH MCHC RDW Plt Count MPV Absolute Neuts (auto) Neutrophils % Lymphocytes % Monocytes % Eosinophils % Basophils % Nucleated RBC % Sodium 135 L Potassium 4.5 Chloride 101 Carbon Dioxide 25 Anion Gap 9 BUN 22 H Creatinine 1.1 Creat Clearance w eGFR > 60 Random Glucose 163 H D Hemoglobin A1c % Calcium 8.5 Total Bilirubin 0.3 AST 24 D ALT 50 Alkaline Phosphatase 113 D Total Protein 7.5 Albumin 3.6 Urine Color Urine Appearance Urine pH Ur Specific [place] Urine Protein Urine Glucose (UA) Urine Ketones Urine Blood Urine Nitrite Urine Bilirubin Urine Urobilinogen Ur Leukocyte Esterase Urine WBC (Auto) Urine RBC (Auto) Ur Epithelial Cells Calcium Oxalate Crystal Granular Casts Urine Mucus Problem List - Problems (1) Airway obstruction Code(s): J98.8 - OTHER SPECIFIED RESPIRATORY DISORDERS (2) Respiratory arrest Code(s): R09.2 - RESPIRATORY ARREST (3) Aspiration into lower respiratory tract Code(s): T17.800A - UNSP FOREIGN BODY IN OTH PRT RESP TRACT CAUSING ASPHYX, INIT Assessment/Plan Acute respiratory failure Suspected aspiration (?) angioedema (?) anaphylaxis CT chest Sedation vacation with wean trials after imaging is reviewed Follow cultures ABX per ID Continue steroids Benadryl / Pepcid smoking cessation upon discharge VTE prophylaxis Dr Kingsley Critical care time spent in reviewing chart, evaluating patient and formulating plan - 36 minutes.
[2018-01-26] MEDS ORDERED: PT OWN MED DRAWER 7, Y5N ONE ×2 (16:18→16:19)
[2018-01-27] MEDS ORDERED: DEXTROSE 5%-WATER 100 ML IVPB ONE ×2 (03:06→08:47)
[2018-01-27] MEDS ORDERED: PIPERACILLIN/TAZOBACTAM 4.5 GM VIAL IVPB ONE ×2 (03:06→08:47)
[2018-01-27] MEDS: DEXAMETHASONE SOD PHOSPHATE 4 MG/1 ML VIAL IVPUSH SCH ×2 (03:13→09:17)
[2018-01-27] MEDS: PIPERACILLIN/TAZOB 4.5 GM 4.5 GM in DEXTROSE 5%-WATER 100 ML IVPB SCH ×2 (03:13→09:24)
[2018-01-27] MEDS: VANCOMYCIN 1,250 MG in DEXTROSE 5%-WATER - 250 ML IVPB SCH (03:17)
[2018-01-27] MEDS: HEPARIN NA (PORCINE) 5,000 UNITS/ML 1ML VIAL SQ SCH ×3 (05:41→21:47)
[2018-01-27 06:13] LABS: ALBUMIN 3.3 g/dl (3.4-5.0); ANION GAP 7 MMOL/L (8-16); BLOOD UREA NITROGEN 24 mg/dL (7-18); CALCIUM 8.1 mg/dL (8.5-10.1); CHLORIDE 103 mmol/L (98-107); CO2 28 mmol/L (21-32); GLUCOSE,RANDOM 169 mg/dL (74-106); MAGNESIUM 2.9 mg/dL (1.8-2.4); POTASSIUM 4.3 mmol/L (3.5-5.1); SODIUM 138 mmol/L (136-145)
[2018-01-27 06:17] LABS: ALK PHOS 91 U/L (45-117); BILIRUBIN,TOTAL 0.3 mg/dL (0.2-1.0); CREATININE 0.9 mg/dL (0.7-1.3); PHOSPHOROUS 5.1 mg/dL (2.5-4.9); SGOT/AST 24 U/L (15-37); SGPT/ALT 41 U/L (12-78); TOT PROT 6.9 g/dl (6.4-8.2)
--- NOTE | 2018-01-27 07:08 | PN ---
Physical Exam: SUBJECTIVE: SUBJECTIVE: Patient seen and examined this AM. Pt continues to be intubated. He opens his eyes to verbal stimuli, but is sedated and does not follow commands. Draining ~500 yellow urine since yesterday. Family has been at bedside to visit. Pt has been stable on ventilator, no acute events overnight. Family states he has not had sz activity in ~5 months, is on no sz medication. They do not think he had sz activity prior to admission. Can perform sedation vacation today if attempting extubation, however his nurse states the pt will wake and attempt to pull his tube within 15 minutes if he is not watched. Will involve nursing staff when performing ventilation weaning. *Update: pt has been extubated since this morning. The propofol and fentanyl were weaned, and pt was able to follow commands when spoken to in Yi. He had a strong choke reflex with suctioning. After extubation, he has been stable on face mask @40 venti mask, O2 sat 95-100% requiring minimal suctioning. He has been The pt/family state that around dinner time, the pt choked on a piece of salad, and retrieved some salad from his throat using his finger. Later in the evening, the pt felt upset and anxious about missing his children, and felt that a seizure may be coming. He states that in his home country they had told him that he could "swallow his tongue" while he was having a seizure, so he grabs his neck with his hands to try to prevent his tongue from falling back in his throat. There have been no new foods or medications consumed prior to his choking. Pt speaks both Yi and Iranian. OBJECTIVE: Vital Signs Period Temp Pulse Resp BP Sys/Barrios Pulse Ox Last 24 Hr 98.3 F-98.6 F 79-108 14-21 118-146/66-89 92-98 GENERAL: The patient is stable on the ventilator. Opens his eyes to verbal stimuli, does not follow commands. HEAD: Normal with no signs of trauma. EYES: PERRL, extraocular movements intact, sclera anicteric, conjunctiva clear. No ptosis. ENT: External ears normal, nares patent. Tongue still appears slightly edematous but pt can close his mouth. No lip or perioral edema noted. NECK: Trachea midline, full range of motion, supple. No LAD, fluctuance, or masses noted. LUNGS: Breath sounds diminished at bases, but equal and clear to auscultation b/ l, no wheezes, no crackles, no accessory muscle use. HEART: Regular rate and rhythm, S1, S2 without murmur, rub or gallop. ABDOMEN: Soft, nontender, nondistended, normoactive bowel sounds, no guarding, no rebound, no hepatosplenomegaly, no masses. EXTREMITIES: 2+ pulses, warm, well-perfused, no pitting edema. SCDs in place. NEUROLOGICAL: Cranial nerve tests could not be performed as pt not verbal or responsive to commands. Speech and gait not observed. PSYCH: Pt sedated and lethargic. Unable to assess mood. SKIN: Warm, dry, normal turgor, no rashes or lesions noted Vent Settings: RR 16, TV 400, FiO2 50%, PEEP 5 Allergies: phenytoin Post-extubation: GENERAL: Pt is alert and oriented, able to follow commands. Pt can speak in full sentences and is cooperative with wearing face mask. No cyanosis or respiratory distress observed. HEAD: Normal with no signs of trauma. EYES: Extraocular movements intact, sclera anicteric, conjunctiva clear. No ptosis. ENT: External ears normal, nares patent. Minimal pharyngeal edema and pt able to tolerate secretions. Cooperative with suctioning during extubation. NECK: Trachea midline, full range of motion, supple. No LAD, fluctuance, or masses noted. LUNGS: Breath sounds diminished slightly at bases, but equal and clear to auscultation b/l, no wheezes, no crackles, no accessory muscle use. Now that pt is cooperating with deep breaths, I can auscultate good air movement throughout lung juarez. HEART: Regular rate and rhythm, S1, S2 without murmur, rub or gallop. ABDOMEN: Soft, nontender, nondistended, normoactive bowel sounds, no guarding, no rebound, no hepatosplenomegaly, no masses. EXTREMITIES: 2+ pulses, warm, well-perfused, no pitting edema. SCDs in place. NEUROLOGICAL: CN grossly intact. Strength and sensation intact in all extremities. Speech normal. PSYCH: Pt happy affect and normal mood. Appears happy to see his family members and is cooperative with all requests. SKIN: Warm, dry, normal turgor, no rashes or lesions noted Laboratory Results - last 24 hr 01/26/18 01/26/18 01/26/18 05:30 05:30 05:30 WBC 10.5 H Corrected WBC (auto) RBC 5.87 H Hgb 13.3 Hct 42.1 MCV 71.8 L MCH 22.6 L MCHC 31.5 L RDW 14.4 Plt Count 215 MPV 8.7 Absolute Neuts (auto) 9.2 H Neutrophils % 87.7 H Lymphocytes % 9.2 D Monocytes % 3.0 L Eosinophils % 0.0 D Basophils % 0.1 Nucleated RBC % 0 Platelet Estimate Platelet Comment Sodium 135 L Potassium 4.5 Chloride 101 Carbon Dioxide 25 Anion Gap 9 BUN 22 H Creatinine 1.1 Creat Clearance w eGFR > 60 Random Glucose 163 H D Hemoglobin A1c % 6.0 Calcium 8.5 Phosphorus Magnesium Total Bilirubin 0.3 AST 24 D ALT 50 Alkaline Phosphatase 113 D Total Protein 7.5 Albumin 3.6 Vancomycin Pre-Dose 01/26/18 01/27/18 01/27/18 13:50 05:30 05:30 WBC Cancelled Corrected WBC (auto) Cancelled RBC Cancelled Hgb Cancelled Hct Cancelled MCV Cancelled MCH Cancelled MCHC Cancelled RDW Cancelled Plt Count Cancelled MPV Cancelled Absolute Neuts (auto) Cancelled Neutrophils % Cancelled Lymphocytes % Cancelled Monocytes % Cancelled Eosinophils % Cancelled Basophils % Cancelled Nucleated RBC % Cancelled Platelet Estimate Cancelled Platelet Comment Cancelled Sodium 138 Potassium 4.3 Chloride 103 Carbon Dioxide 28 Anion Gap 7 L BUN 24 H Creatinine 0.9 Creat Clearance w eGFR > 60 Random Glucose 169 H Hemoglobin A1c % Calcium 8.1 L Phosphorus 5.1 H Magnesium 2.9 H Total Bilirubin 0.3 AST 24 ALT 41 Alkaline Phosphatase 91 D Total Protein 6.9 Albumin 3.3 L Vancomycin Pre-Dose 10.01 H CBC 01/27: WBC 13.9, H/H 12.7/40.5, Platelet 202 (original canceled lab was hemolyzed and re-drawn). Active Medications Generic Name Dose Route Start Last Admin Trade Name Freq PRN Reason Stop Dose Admin Dexamethasone Sodium Phosphate 4 mg 01/25/18 03:15 01/27/18 03:13 Decadron Injection - IVPUSH 4 mg Q6H-IV BREANNA Administration Diphenhydramine HCl 25 mg 01/26/18 15:30 01/27/18 03:13 Benadryl Injection - IVPUSH 25 mg Q6H-IV BREANNA Administration Heparin Sodium (Porcine) 5,000 unit 01/25/18 06:00 01/27/18 05:41 Heparin - SQ 5,000 unit TID BREANNA Administration Fentanyl 500 mcg/ Dextrose 100 mls @ 10 mls/hr 01/25/18 02:30 01/27/18 01:00 IVPB 25 mcg/hr TITR BREANNA 5 mls/hr Titration 50 MCG/HR Piperacillin Sod/Tazobactam 100 mls @ 200 mls/hr 01/25/18 13:00 01/27/18 03: 13 Sod 4.5 gm/ Dextrose IVPB 200 mls/hr Q8H-IV BREANNA Administration Protocol Famotidine/Sodium Chloride 20 mg in 50 mls @ 100 mls/hr 01/25/18 10:00 21:23 Pepcid 20 Mg Premixed Ivpb - IVPB 100 mls/hr BID BREANNA Administration Propofol 1,000,000 mcg in 100 mls @ 6.257 mls/hr 01/25/18 15:45 01/27/18 06: 00 Diprivan - IVPB 60 mcg/kg/min TITR BREANNA 37.541 mls/hr Titration Protocol 10 MCG/KG/MIN Vancomycin HCl 1,250 mg/ 250 mls @ 166.667 mls/hr 01/26/18 03:00 01/27/18 03: 17 Dextrose IVPB 166.667 mls/hr Q12H BREANNA Administration ASSESSMENT/PLAN: Pt is a 42 yo M with PMH of sz, EtOH use, HCV (s/p Harvani) who presents to the ER in respiratory distress likely 2/2 to choking on food ( laryngeal edema after retrieving stuck food) and from pt holding his neck. CT neck showed no significant soft tissue swelling, but did show b/l UL lung consolidation possibly 2/2 to aspiration. 1. Respiratory Distress -Pt was extubated today Per Pulm (Dr. Bishop): maintain airway protection with cuff leak checks; sedation for vent synchrony. Goal RASS -3/4. Pt extubated today and is tolerating secretions well. Able to speak and is saturating well on Venti mask. Neck CT - b/l UL consolidation (aspiration?) and 6 mm R partoid gland ( adenoma?) CT head showed no acute pathology. CT chest showed bibasilar consolidation/atelectasis with associated pleural effusions. Trop <.02 Per ENT (Dr. Quach): extubate if able, possible allergen or laryngospasm Laryngoscopy via L nostril showed no posterior masses or lesions Decadron discontinued. 25 mg IV benadryl PRN for swelling/wheezing. Reduced decadron to 40 mg solumedrol IV Qday starting tomorrow. -Steven culture: blood and sputum cx pending. Urine cx negative and initial UA negative. Started 4.5 g Zosyn Q8hr and 1.25 g Vanc BID per ID to cover for possible aspiration pneumonia and Gram neg for possible Que's angina Vanc trough ordered -10; will continue Vanc until ideal value is reached. -Speech and swallow study ordered as pt recently extubated. Also ordered dietary consult to make sure pt is not continued choking risk. Education will be given to pt regarding not grabbing his throat and choking hazards with seizures. -Utox ordered to r/o any toxicologic cause of edema/AMS. Utox negative except for benzodiazepines, likely from sedation medications we have given (no history of home benzo use). -Pepcid 20 IVPB BID 2. GI/ -OGT -Gomez catheter draining yellow urine 3. Prophylaxis -B/l SCDs -Heparin 5000 u TID -Restraints discontinued as pt is cooperative. 4. Electrolytes -Phos 5.1 today. Will provide PhosLo once pt can tolerate PO. -Will continue to monitor. Problem List - Problems (1) Acute hypoxemic respiratory failure Code(s): J96.01 - ACUTE RESPIRATORY FAILURE WITH HYPOXIA (2) Airway obstruction Code(s): J98.8 - OTHER SPECIFIED RESPIRATORY DISORDERS (3) Aspiration into lower respiratory tract Code(s): T17.800A - UNSP FOREIGN BODY IN OTH PRT RESP TRACT CAUSING ASPHYX, INIT (4) Respiratory arrest Code(s): R09.2 - RESPIRATORY ARREST Visit type - Emergency Visit Emergency Visit: Yes ED Registration Date: 01/25/18 Care time: The patient presented to the Emergency Department on the above date and was hospitalized for further evaluation of their emergent condition. - New Patient This patient is new to me today: No - Critical Care Critical Care patient: Yes Total Critical Care Time (in minutes): 45 Critical Care Statement: The care of this patient involved high complexity decision making to prevent further life threatening deterioration of the patient 's condition and/or to evaluate & treat vital organ system(s) failure or risk of failure. - Discharge Referral Referred to [facility] Yes
[2018-01-27 07:32] LABS: BASO % 0.1 % (0-2.0); HEMATOCRIT 40.5 % (35.4-49); HEMOGLOBIN 12.7 GM/dL (11.7-16.9); LYMPH % 5.9 % (8-40); MCH 22.2 pg (25.7-33.7); MCHC 31.3 g/dl (32.0-35.9); MEAN CELL VOLUME 70.9 fl (80-96); MEAN PLT VOLUME 8.1 fl (7.5-11.1); MONO % 6.8 % (3.8-10.2); NEUT % 87.2 % (42.8-82.8); PLATELET COUNT 202 K/MM3 (134-434); RBC 5.71 M/mm3 (4.00-5.60); RDW 14.4 % (11.9-15.9); WHITE BLOOD COUNT 13.9 K/mm3 (4.0-10.0)
[2018-01-27] MEDS ORDERED: CALCIUM ACETATE 667 MG CAPSULE (FP) PO SCH (08:58)
[2018-01-27] MEDS: FAMOTIDINE 20 MG/50 ML IVPB 20 MG/50 ML MG IVPB SCH ×2 (09:18→21:47)
[2018-01-27] MEDS: CHLORHEXIDINE GLUCONATE 0.12% 15ML CUP MM SCH ×2 (09:24→21:47)
[2018-01-27] MEDS: FENTANYL INJECTION 500 MCG in DEXTROSE 5%-WATER - 90 ML IVPB SCH (09:36)
--- NOTE | 2018-01-27 09:44 | CONSULT ---
Consult - text type - Consultation Consultation Note: Neurology History of Present Illness - History of Present Illness 42 YOM who presented to the ED in severe respiratory distress with his hands around his throat as though he were choking. Per his nephew, the patient had come to him at home appearing to have difficulty breathing and with his hands in the same position around his own throat as if he were choking, just [employer] to the ED. This occurred just subsequent to the patient eating at home. On arrival to the ED, the patient could not speak, was actively turning cyanotic, severe distress, clutching his throat and required sedation and intubation. Remains in ICU under critical monitoring, has been extubated and on facemask. Does have history of Etoh use and seizures but no new seizures. Spoke with resident regarding this and they spoke with family, no recent seizures, none on this admission. Has allergy to phenytoin. CT head reviewed, no acute changes. Past History - Past Medical History Allergies/Adverse Reactions: Allergies Allergy/AdvReac Type Severity Reaction Status Date / Time phenytoin sodium extended Allergy Intermediate Itching Verified 07/01/17 14:02 [From Dilantin] Home Medications: Ambulatory Orders Ibuprofen 800 mg PO TID PRN #20 tablet 07/01/17 Neomycin/Polymyxn/Hc [Cortisporin Otic Suspenstion -] 4 drop AD Q4HWA #1 bottle 07/01/17 Amoxicillin - [Amoxicillin 500mg Capsule -] 500 mg PO TID 01/25/18 Minocycline HCl 75 mg PO DAILY 01/25/18 Prednisone 10 mg PO ASDIR 01/25/18 Varenicline Tartrate [Chantix] 0.5 mg PO ASDIR 01/25/18 COPD: No Kidney Stones: Yes Liver Disease: Yes Seizures: Yes - Surgical History Neurologic Surgery: Yes - Suicide/Smoking/Psychosocial Hx Smoking History: Unknown if ever smoked Have you smoked in the past 12 months: Yes Number of Cigarettes Smoked Daily: 30 'Breaking Loose' booklet given: 07/01/17 Hx Alcohol Use: No Drug/Substance Use Hx: No Substance Use Type: None Review of Systems - Review of Systems Able to Perform ROS?: No (clinical condition) *Physical Exam Vital Signs Temperature 98.6 F 01/27/18 06:00 Pulse Rate 94 H 01/27/18 08:00 Respiratory Rate 22 01/27/18 08:16 Blood Pressure 139/81 01/27/18 08:00 O2 Sat by Pulse Oximetry (%) 94 L 01/27/18 08:16 - Physical Exam General Appearance: Awake, alert, cooperative HEENT: positive: EOMI, Other (bilateral moderate scleral injection). negative: Scleral Icterus (R), Scleral Icterus (L) Neck: positive: Trachea midline, Other (fullness and firmness to the midsaggital inferior mandible). negative: Tender Respiratory/Chest: positive: Respiratory Distress (severe), Stridor, Other ( facial cyanosis, unable to protect airway, severely diminished breath sounds bilaterally) Cardiovascular: positive: Regular Rhythm, S1, S2, Tachycardia. negative: Edema , JVD Vascular Pulses: Femoral (R): 2+, Femoral (L): 2+ Gastrointestinal/Abdominal: positive: Normal Bowel Sounds, Soft, Protuberent. negative: Organomegaly, Pulsatile Mass, Guarding Musculoskeletal: positive: Normal Inspection. negative: Decreased Range of Motion, Vertebral Tenderness Extremity: positive: Normal Capillary Refill, Normal Inspection, Normal Range of Motion, Cyanosis (mild) Integumentary: positive: Dry, Warm, Cyanotic Neurologic: positive: vehicle mechanic II-XII NML intact, no facial droop, moves all extremities grossly, sensory intact, gait deferred CBCD WBC 13.9 K/mm3 (4.0-10.0) H 01/27/18 07:10 RBC 5.71 M/mm3 (4.00-5.60) H 01/27/18 07:10 Hgb 12.7 GM/dL (11.7-16.9) 01/27/18 07:10 Hct 40.5 % (35.4-49) 01/27/18 07:10 MCV 70.9 fl (80-96) L 01/27/18 07:10 MCHC 31.3 g/dl (32.0-35.9) L 01/27/18 07:10 RDW 14.4 % (11.9-15.9) 01/27/18 07:10 Plt Count 202 K/MM3 (134-434) 01/27/18 07:10 MPV 8.1 fl (7.5-11.1) 01/27/18 07:10 CMP Sodium 138 mmol/L (136-145) 01/27/18 05:30 Potassium 4.3 mmol/L (3.5-5.1) 01/27/18 05:30 Chloride 103 mmol/L (98-107) 01/27/18 05:30 Carbon Dioxide 28 mmol/L (21-32) 01/27/18 05:30 Anion Gap 7 MMOL/L (8-16) L 01/27/18 05:30 BUN 24 mg/dL (7-18) H 01/27/18 05:30 Creatinine 0.9 mg/dL (0.7-1.3) 01/27/18 05:30 Creat Clearance w eGFR > 60 (>60) 01/27/18 05:30 Random Glucose 169 mg/dL (74-106) H 01/27/18 05:30 Calcium 8.1 mg/dL (8.5-10.1) L 01/27/18 05:30 Total Bilirubin 0.3 mg/dL (0.2-1.0) 01/27/18 05:30 AST 24 U/L (15-37) 01/27/18 05:30 ALT 41 U/L (12-78) 01/27/18 05:30 Alkaline Phosphatase 91 U/L (45-117) D 01/27/18 05:30 Total Protein 6.9 g/dl (6.4-8.2) 01/27/18 05:30 Albumin 3.3 g/dl (3.4-5.0) L 01/27/18 05:30 CARDIAC ENZYMES Creatine Kinase 228 IU/L (39-308) 01/25/18 09:45 Troponin I < 0.02 ng/ml (0.00-0.05) 01/25/18 09:45 CT head reviewed Plan: 42 YOM who presented to the ED in severe respiratory distress with his hands around his throat as though he were choking. Per his nephew, the patient had come to him at home appearing to have difficulty breathing and with his hands in the same position around his own throat as if he were choking, just [employer] to the ED. This occurred just subsequent to the patient eating at home. On arrival to the ED, the patient could not speak, was actively turning cyanotic, severe distress, clutching his throat and required sedation and intubation. Remains in ICU under critical monitoring, has been extubated and on facemask. Does have history of Etoh use and seizures but no new seizures. Spoke with resident regarding this and they spoke with family, no recent seizures, none on this admission. Has allergy to phenytoin. CT head reviewed, no acute changes. At this time would not add seizure medication as no recent events and has been seizure free. Unclear if prior seizures may have been in context of Etoh, in which case AEDs would not be effective. If seizure events were to develop would consider keppra 750mg twice daily but can hold off for now. Continue medical, respiratory optimization. Monitor blood pressure, maintain normotensive range. Increased hydration recommended. DVT ppx. Critical care time 35 mins.
--- NOTE | 2018-01-27 10:10 | PN ---
Progress Note, Physician Chief Complaint: patient admitted with acute hypoxemic respiratory failure in icu today he is extubated on face mask awake alert seen by neurology no indication for seizure medicine - Current Medication List Current Medications: Active Medications Calcium Acetate (Phoslo -) 667 mg PO TIDCM BREANNA Chlorhexidine Gluconate (Peridex -) 15 ml MM BID BREANNA Last Admin: 01/27/18 09:24 Dose: 15 ml Dexamethasone Sodium Phosphate (Decadron Injection -) 4 mg IVPUSH Q6H-IV BREANNA Last Admin: 01/27/18 09:17 Dose: 4 mg Diphenhydramine HCl (Benadryl Injection -) 25 mg IVPUSH Q6H-IV BREANNA Last Admin: 01/27/18 09:25 Dose: Not Given Heparin Sodium (Porcine) (Heparin -) 5,000 unit SQ TID BREANNA Last Admin: 01/27/18 05:41 Dose: 5,000 unit Fentanyl 500 mcg/ Dextrose 100 mls @ 10 mls/hr IVPB TITR BREANNA Last Admin: 01/27/18 09:36 Dose: Not Given Piperacillin Sod/Tazobactam (Sod 4.5 gm/ Dextrose) 100 mls @ 200 mls/hr IVPB Q8H-IV BREANNA; Protocol Last Admin: 01/27/18 09:24 Dose: 200 mls/hr Famotidine/Sodium Chloride (Pepcid 20 Mg Premixed Ivpb -) 20 mg in 50 mls @ 100 mls/hr IVPB BID BREANNA Last Admin: 01/27/18 09:18 Dose: 100 mls/hr Propofol (Diprivan -) 1,000,000 mcg in 100 mls @ 6.257 mls/hr IVPB TITR COUNT INCLUDES THE [facility]; Protocol Last Titration: 01/27/18 06:00 Dose: 60 mcg/kg/min, 37.541 mls/hr Vancomycin HCl 1,250 mg/ (Dextrose) 250 mls @ 166.667 mls/hr IVPB Q12H BREANNA Last Admin: 01/27/18 03:17 Dose: 166.667 mls/hr - Objective Vital Signs: Vital Signs Temperature 98.6 F 01/27/18 06:00 Pulse Rate 94 H 01/27/18 08:00 Respiratory Rate 22 01/27/18 08:16 Blood Pressure 139/81 01/27/18 08:00 O2 Sat by Pulse Oximetry (%) 94 L 01/27/18 08:16 Constitutional: Yes: Calm Neck: Yes: Other (submandibular fullness no lip swelling noted) Cardiovascular: Yes: Regular Rate and Rhythm, S1, S2 Respiratory: Yes: CTA Bilaterally, Diminished (at bases and lower lung zones), On Venti-Mask Gastrointestinal: Yes: Normal Bowel Sounds, Soft Edema: No Neurological: Yes: Alert, Oriented Labs: CBC, BMP 01/27/18 07:10 01/27/18 05:30 INR, PTT INR 1.05 (0.83-1.09) 01/25/18 01:20 Problem List - Problems (1) Acute hypoxemic respiratory failure Assessment/Plan: extubated on face mask on iv steroids and benadryl wbc elevation seconadry to steroid effect Code(s): J96.01 - ACUTE RESPIRATORY FAILURE WITH HYPOXIA (2) Airway obstruction Assessment/Plan: seen by ENT no abnormality noted ct neck noted chest ct shows extensive bibasilar consolidation noted with effusion on iv abx for possible aspiration pneumonia /ludwigs angina dexamethasone and benadryl pepcid DVT ppx Code(s): J98.8 - OTHER SPECIFIED RESPIRATORY DISORDERS (3) Seizure Assessment/Plan: seen by neurology no indication for seizure medications right now Code(s): R56.9 - UNSPECIFIED CONVULSIONS
[2018-01-27 10:50] LABS: COCAINE, UR NEGATIVE ng/ml (CUTOFF=300); URINE AMPHETAMINES NEGATIVE ng/ml (CUTOFF=500); URINE BARBITURATES NEGATIVE ng/ml (CUTOFF=200); URINE BENZODIAZEPINES POSITIVE ng/ml (CUTOFF=200)
[2018-01-27 10:51] LABS: METHADONE, UR NEGATIVE ng/ml (CUTOFF=300); OPIATES, URI NEGATIVE ng/ml (CUTOFF=300); PHENCYCLIDINE,URINE NEGATIVE ng/ml (CUTOFF=25)
[2018-01-27 11:23] VITALS: BMI 36.4
[2018-01-27] MEDS ORDERED: CALCIUM ACETATE 667 MG CAPSULE (FP) PO ONE ×2 (11:58→16:30)
--- NOTE | 2018-01-27 12:01 | PN ---
Teaching Attending Note Name of Resident: Evelin Warren ATTENDING PHYSICIAN STATEMENT I saw and evaluated the patient. I reviewed the resident's note and discussed the case with the resident. I agree with the resident's findings and plan as documented. SUBJECTIVE: Patient seen and examined in the ICU. Just extubated on rounds. Mildly tachypneic on VM O2. Reports some sore throat. No stridor noted. Apparently he choked on some salad and tried to remove it with is fingers. CXR: Bibasilar infiltrates Intake & Output 01/24/18 01/25/18 01/26/18 01/27/18 23:59 23:59 23:59 23:59 Intake Total 318 2178 794 Output Total 2050 2300 500 Balance -1732 -122 294 Weight 229 lb 14.4 oz 230 lb 3.2 oz 226 lb Last Vital Signs Temp Pulse Resp BP Pulse Ox 98.6 F 92 H 14 155/91 94 L 01/27/18 06:00 01/27/18 10:00 01/27/18 10:00 01/27/18 10:00 01/27/18 08:16 Active Medications Calcium Acetate (Phoslo -) 667 mg PO TIDCM BREANNA Chlorhexidine Gluconate (Peridex -) 15 ml MM BID BREANNA Last Admin: 01/27/18 09:24 Dose: 15 ml Dexamethasone Sodium Phosphate (Decadron Injection -) 4 mg IVPUSH Q6H-IV BREANNA Last Admin: 01/27/18 09:17 Dose: 4 mg Diphenhydramine HCl (Benadryl Injection -) 25 mg IVPUSH Q6H-IV BREANNA Last Admin: 01/27/18 09:25 Dose: Not Given Heparin Sodium (Porcine) (Heparin -) 5,000 unit SQ TID BREANNA Last Admin: 01/27/18 05:41 Dose: 5,000 unit Fentanyl 500 mcg/ Dextrose 100 mls @ 10 mls/hr IVPB TITR BREANNA Last Admin: 01/27/18 09:36 Dose: Not Given Piperacillin Sod/Tazobactam (Sod 4.5 gm/ Dextrose) 100 mls @ 200 mls/hr IVPB Q8H-IV BREANNA; Protocol Last Admin: 01/27/18 09:24 Dose: 200 mls/hr Famotidine/Sodium Chloride (Pepcid 20 Mg Premixed Ivpb -) 20 mg in 50 mls @ 100 mls/hr IVPB BID [facility] Last Admin: 01/27/18 09:18 Dose: 100 mls/hr Propofol (Diprivan -) 1,000,000 mcg in 100 mls @ 6.257 mls/hr IVPB TITR [facility]; Protocol Last Titration: 01/27/18 06:00 Dose: 60 mcg/kg/min, 37.541 mls/hr Vancomycin HCl 1,250 mg/ (Dextrose) 250 mls @ 166.667 mls/hr IVPB Q12H [facility] Last Admin: 01/27/18 03:17 Dose: 166.667 mls/hr Constitutional: Yes: Extubated, mildly tachypneic at rest Eyes: Yes: PERRL HENT: Yes: less tongue swelling, no periorbital edema Neck: Yes: (-) JVD Cardiovascular: Yes: Regular Rate and Rhythm, S1, S2 Respiratory: Yes: Scattered rhonchi, Extubated Gastrointestinal: Yes: Normal Bowel Sounds, Soft Extremities: Yes: WNL Edema: No Neurological: Yes: Awake and alert, non-focal Labs: Laboratory Results - last 24 hr 01/26/18 01/27/18 01/27/18 13:50 05:30 05:30 WBC Cancelled Corrected WBC (auto) Cancelled RBC Cancelled Hgb Cancelled Hct Cancelled MCV Cancelled MCH Cancelled MCHC Cancelled RDW Cancelled Plt Count Cancelled MPV Cancelled Absolute Neuts (auto) Cancelled Neutrophils % Cancelled Lymphocytes % Cancelled Monocytes % Cancelled Eosinophils % Cancelled Basophils % Cancelled Nucleated RBC % Cancelled Platelet Estimate Cancelled Platelet Comment Cancelled Sodium 138 Potassium 4.3 Chloride 103 Carbon Dioxide 28 Anion Gap 7 L BUN 24 H Creatinine 0.9 Creat Clearance w eGFR > 60 Random Glucose 169 H Calcium 8.1 L Phosphorus 5.1 H Magnesium 2.9 H Total Bilirubin 0.3 AST 24 ALT 41 Alkaline Phosphatase 91 D Total Protein 6.9 Albumin 3.3 L Vancomycin Pre-Dose 10.01 H Opiates Screen Methadone Screen Barbiturate Screen Phencyclidine Screen Ur Amphetamines Screen MDMA (Ecstasy) Screen Benzodiazepines Screen Cocaine Screen U Marijuana (THC) Screen 01/27/18 01/27/18 07:10 09:45 WBC 13.9 H Corrected WBC (auto) RBC 5.71 H Hgb 12.7 Hct 40.5 MCV 70.9 L MCH 22.2 L MCHC 31.3 L RDW 14.4 Plt Count 202 MPV 8.1 Absolute Neuts (auto) 12.1 H Neutrophils % 87.2 H Lymphocytes % 5.9 L D Monocytes % 6.8 D Eosinophils % 0.0 Basophils % 0.1 Nucleated RBC % 0 Platelet Estimate Platelet Comment Sodium Potassium Chloride Carbon Dioxide Anion Gap BUN Creatinine Creat Clearance w eGFR Random Glucose Calcium Phosphorus Magnesium Total Bilirubin AST ALT Alkaline Phosphatase Total Protein Albumin Vancomycin Pre-Dose Opiates Screen Negative Methadone Screen Negative Barbiturate Screen Negative Phencyclidine Screen Negative Ur Amphetamines Screen Negative MDMA (Ecstasy) Screen Negative Benzodiazepines Screen Positive Cocaine Screen Negative U Marijuana (THC) Screen Negative Problem List - Problems (1) Airway obstruction Code(s): J98.8 - OTHER SPECIFIED RESPIRATORY DISORDERS (2) Respiratory arrest Code(s): R09.2 - RESPIRATORY ARREST (3) Aspiration into lower respiratory tract Code(s): T17.800A - UNSP FOREIGN BODY IN OTH PRT RESP TRACT CAUSING ASPHYX, INIT Assessment/Plan Acute respiratory failure Suspected aspiration (?) angioedema (?) anaphylaxis VM O2 ABX per ID Taper steroids Can monitor off Benadryl / Pepcid Smoking cessation to be recounseled upon discharge VTE prophylaxis Swallow evaluation Aspiration precautions Dr Kingsley Critical care time spent in reviewing chart, evaluating patient and formulating plan - 36 minutes.
--- NOTE | 2018-01-27 14:36 | PN ---
Progress Note (short form) - Note Progress Note: awake extubated choked on salad at home Vital Signs Period Temp Pulse Resp BP Sys/Barrios Pulse Ox Last 24 Hr 98.3 F-98.8 F 77-102 14-22 118-155/66-91 93-96 no tongue swellling dentition fair cor-rrr lungs clear abd soft,nt ext no edema CBC, BMP 01/27/18 07:10 01/27/18 05:30 Microbiology 01/26/18 03:00 Sputum - Endotrachea Suction/Ventilator Gram Stain - Final 01/26/18 03:00 Sputum - Endotrachea Suction/Ventilator Sputum Culture - Preliminary NORMAL RESPIRATORY EDUARDO 01/25/18 01:20 Blood - Peripheral Venous Blood Culture - Preliminary NO GROWTH OBTAINED AFTER 48 HOURS, INCUBATION TO CONTINUE FOR 3 DAYS. 01/25/18 01:20 Blood - Peripheral Venous Blood Culture - Preliminary NO GROWTH OBTAINED AFTER 48 HOURS, INCUBATION TO CONTINUE FOR 3 DAYS. 01/25/18 01:20 Urine - Urine - Catheterized Urine Culture - Final NO GROWTH OBTAINED a/p airway obstruction chooked on salad at homel aspiration pneumonia-antibiotic day #2 switch to unasyn with plans to switch to po augmentin soon Problem List - Problems (1) Airway obstruction Code(s): J98.8 - OTHER SPECIFIED RESPIRATORY DISORDERS (2) Respiratory arrest Code(s): R09.2 - RESPIRATORY ARREST (3) Aspiration into lower respiratory tract Code(s): T17.800A - UNSP FOREIGN BODY IN OTH PRT RESP TRACT CAUSING ASPHYX, INIT
--- NOTE | 2018-01-27 17:38 | CONSULT ---
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 Gastrointestinal: Yes: Other (Hepatitis C) - Smoking History Smoking history: Unknown if ever smoked Have you smoked in the past 12 months: Yes Aproximately how many cigarettes per day: 30 - Alcohol/Substance Use Hx Alcohol Use: No Number of Drinks Daily: 4 History of Substance Use: reports: None History - Admission Reason For Visit: RESPIRATORY ARREST - Hearing Hearing: Normal Hearing Aide: No With Patient: No Speech Evaluation - Communication Primary Language: SLOVAK Secondary Language: [place] Communication: Yes: Within Normal Limits, Language Barrier Oral Expression Ability: Yes: Mild Impairment - Speech Production Apraxia: No Able to Make Needs Known: Yes: WNL Intelligibility: Yes: WNL - Speech Characteristics Voice Loudness: Mildly Soft/Quiet Voice Pitch: Yes: Mildly Low Voice Phonatory-based Quality: Yes: Hoarse, Glottal Wood[place], Weak Speech Pattern: Normal Nasal Resonance: Normal Articulation: Yes: Precise Dysfluency: Yes: Tonic Rate of Speech: Intact Voice Comment: Vocal quality is reduced but WFL for environment - Language/Auditory Comprehension Follows: Yes: 1 Stage Simple Commands (with gestural prompts), 2 Stage Simple Commands (with gestural prompts), Complex Commands (may be difficult secondary to language barrier.) Observation: Able to respond to yes/no queries: Yes, Yes/No Confusion: No, Comprehends Conversational Speech: Yes, Benefits from Slow Speech: Yes, Benefits from Repetiton: Yes - Language/Verbal Expression Able to Respond to Simple Queries: Yes: WNL Able to Communicate Wants and Needs: Yes: WNL Functional Communication Status: Yes: Mildly Impaired Aware of Errors: Yes Attempts to Correct Errors: Yes Use of Gestures: Yes Written Expression: not examined Oral Expression: WFL Reading Comprehension: not examined Calculations: not examined Attention: Yes: Intact - Memory/Perception buildings painter Memory: Yes: WNL Short Term Memory: Yes: WNL - Swallow Evaluation/Bedside Assessment Current Nutritional Intake: Clear Liquids Oral Secretions: Yes: WFL, Tongue Coated Tracheostomy Present: No Patient on Ventilator: No Dentition: Yes: Adequate Facial Symmetry at Rest: Symmetrical Facial Symmetry on Retraction: Symmetrical Facial Movement: Controlled Sensation: Normal Facial Comment: WFL for speech and swallowing purposes. Jaw Position: Closed at Rest Against Resistance Opening: Normal Against Resistance Closing: Normal Pucker Lips: Normal Smile: Normal Lips, Comment: WFL for speech and swallowing purposes. Lingual Movement: Normal Lingual Speed of Movement: Normal Lingual Movement Strgth Against Opposition: Normal Lingual Movement Characteristics: Normal Lingual Comment: WFL for speech and swallowing purposes. Soft Palate Description: Normal Color Hard Palate Description: Normal Color Gag Reflex: Weak Bite Reflex: Present Laryngeal Elevation: WFL Laryngeal Movement: Able to Palpate Needs Assistance: No Rate of Intake: WFL Bolus Size: Large Labial Seal: WFL Chewing: WFL Oral Prep Time: WFL A-P Transit: WFL Pocketing: None Timing of Swallow: WFL Coughing/Throat Clear: No Change in Voice: No Other Findings/Remarks: 42 yo male seen at chairside on unit for swallow eval to r/o dysphagia with family members present. Pt is verbal (primary language is Spanish but speaks understand and speaks Tunisian) A&Ox3 cooperative/ Admitted to [facility] for respiratory distress SOB, possible airway obstruction with his tongue. PMHX includes obesity, seizure and Hepatitis C. Vocal quality is reduced with weak cough. Pt recently extubated on clear liquids. Pass dysphagia screen. Pt given po trials of puree, soft and regular solids without assistance revealed good acceptance, adequate mastication with bolus formation and transport. Pharyngeal swallow appears timely. No cough or changes in voicing after the swallow. Thin liquid trials via cup and straw were unremarkable for dysphagia and / or aspiration at this time. Recommendations - Speech Evaluation, Impression/Plan Impression: 42 yo male presents with minimal oral preparation dysphagia. Oral and pharyngeal phase are WFL for purees, soft, regular solids (cut small) with thin liquids. No evidence of aspiration on any consistency offer during this session at this time. Mental Health Nurse Goals: tolerate the least restrictive diet without s/s of aspiration. Short Term Goals: tolerate regular solids (cut to bite sized pieces) with thin liquids as tolerated with out s/s of aspiration. Recommended Frequency for Therapy: Follow Up PRN - Dysphagia Impressions/Plan Swallowing Skills: WFL (preparation of food) Dysphagia Impressions: Minimal Impairment, Risk of Aspiration *Silent aspiration: cannot be R/O at bedside Dysphagia Treatment Plan: Small Bites, Trial Feedings, Safe Rate, 1/2 tsp. at a time, OOB for meals, OOB for 1 h. after meals, Other (encourage thorough chewing ; remind pt no speaking with food in mouth; offer liquids for every 2-3 bite of solids.) Dysphagia Evaluation Summary: Trial regular solids with thin liquids as tolerated. OOB for meals with 90 degree posture. Observe standard aspiration precautions. Encourage thorough chewing; remind pt no speaking with food in mouth; offer liquids for every 2-3 bite of solids. Results given to chuck splitter and pcp via chart. CREDIT AND COLLECTIONS ANALYST to follow up for diet tolerance. - Recommendations Diet Consistency: Regular Medication Administration: Whole with water Liquids: Thin Liquids
[2018-01-27] MEDS: AMPICILLIN NA/SULBACTAM NA 3 GM in SODIUM CHLORIDE 100 ML IVPB SCH (18:02)
[2018-01-28] MEDS: AMPICILLIN NA/SULBACTAM NA 3 GM in SODIUM CHLORIDE 100 ML IVPB SCH (03:10)
[2018-01-28 05:49] LABS: BASO % 0.1 % (0-2.0); HEMATOCRIT 40.7 % (35.4-49); HEMOGLOBIN 12.9 GM/dL (11.7-16.9); LYMPH % 25.1 % (8-40); MCH 22.4 pg (25.7-33.7); MCHC 31.7 g/dl (32.0-35.9); MEAN CELL VOLUME 70.6 fl (80-96); MEAN PLT VOLUME 8.2 fl (7.5-11.1); MONO % 7.8 % (3.8-10.2); PLATELET COUNT 160 K/MM3 (134-434); RBC 5.76 M/mm3 (4.00-5.60); RDW 13.9 % (11.9-15.9); WHITE BLOOD COUNT 9.4 K/mm3 (4.0-10.0)
[2018-01-28 06:07] LABS: ALBUMIN 3.2 g/dl (3.4-5.0); ANION GAP 4 MMOL/L (8-16); BLOOD UREA NITROGEN 22 mg/dL (7-18); CALCIUM 8.3 mg/dL (8.5-10.1); CHLORIDE 106 mmol/L (98-107); CO2 30 mmol/L (21-32); GLUCOSE,RANDOM 117 mg/dL (74-106); MAGNESIUM 2.6 mg/dL (1.8-2.4); PHOSPHOROUS 2.4 mg/dL (2.5-4.9); POTASSIUM 4.1 mmol/L (3.5-5.1); SGOT/AST 40 U/L (15-37); SODIUM 140 mmol/L (136-145)
[2018-01-28] MEDS: HEPARIN NA (PORCINE) 5,000 UNITS/ML 1ML VIAL SQ SCH ×2 (06:07→14:19)
[2018-01-28 06:10] LABS: ALK PHOS 86 U/L (45-117); BILIRUBIN,TOTAL 0.4 mg/dL (0.2-1.0); CREATININE 0.7 mg/dL (0.7-1.3); SGPT/ALT 47 U/L (12-78); TOT PROT 6.7 g/dl (6.4-8.2)
[2018-01-28] MEDS ORDERED: NAPH,MB-DB/K PH,MBDB POWDER PACKET PO ONE (07:30)
--- NOTE | 2018-01-28 08:59 | PN ---
Progress Note (short form) - Note Progress Note: Neurology History of Present Illness 42 YOM who presented to the ED in severe respiratory distress with his hands around his throat as though he were choking. 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 This occurred just subsequent to the patient eating at home. On arrival to the ED, the patient could not speak, was actively turning cyanotic, severe distress, clutching his throat and required sedation and intubation. Remains in ICU under critical monitoring, has been extubated and on room air. Does have history of Etoh use and seizures but no new seizures. Spoke with resident regarding this and they spoke with family, no recent seizures, none on this admission. Has allergy to phenytoin. CT head reviewed, no acute changes. Has improved in ICU and is now stabilized. No seizure events while admitted and mental status is at baseline. Active Medications Diphenhydramine HCl (Benadryl Injection -) 25 mg IVPUSH Q6H PRN PRN Reason: SHORT OF BREATH/WHEEZING Heparin Sodium (Porcine) (Heparin -) 5,000 unit SQ TID BREANNA Last Admin: 01/28/18 06:07 Dose: 5,000 unit Ampicillin Sodium/Sulbactam (Sodium 3 gm/ Sodium Chloride) 100 mls @ 200 mls/ hr IVPB Q8H-IV BREANNA Last Admin: 01/28/18 03:10 Dose: 200 mls/hr Methylprednisolone Sodium Succinate (Solu-Medrol -) 40 mg IVPUSH DAILY BREANNA Ranitidine HCl (Zantac -) 150 mg PO BID BREANNA *Physical Exam Vital Signs Temperature 98.3 F 01/28/18 06:00 Pulse Rate 74 01/28/18 08:00 Respiratory Rate 20 01/28/18 06:00 Blood Pressure 160/87 01/28/18 08:00 O2 Sat by Pulse Oximetry (%) 96 01/28/18 08:08 - Physical Exam General Appearance: Awake, alert, cooperative HEENT: positive: EOMI, Other (bilateral moderate scleral injection). negative: Scleral Icterus (R), Scleral Icterus (L) Neck: positive: Trachea midline, Other (fullness and firmness to the midsaggital inferior mandible). negative: Tender Respiratory/Chest: positive: Respiratory Distress (severe), Stridor, Other ( facial cyanosis, unable to protect airway, severely diminished breath sounds bilaterally) Cardiovascular: positive: Regular Rhythm, S1, S2, Tachycardia. negative: Edema , JVD Vascular Pulses: Femoral (R): 2+, Femoral (L): 2+ Gastrointestinal/Abdominal: positive: Normal Bowel Sounds, Soft, Protuberent. negative: Organomegaly, Pulsatile Mass, Guarding Musculoskeletal: positive: Normal Inspection. negative: Decreased Range of Motion, Vertebral Tenderness Extremity: positive: Normal Capillary Refill, Normal Inspection, Normal Range of Motion, Cyanosis (mild) Integumentary: positive: Dry, Warm, Cyanotic Neurologic: positive: paramedic rn II-XII NML intact, no facial droop, moves all extremities grossly, sensory intact, gait deferred CBCD WBC 9.4 K/mm3 (4.0-10.0) 01/28/18 05:30 RBC 5.76 M/mm3 (4.00-5.60) H 01/28/18 05:30 Hgb 12.9 GM/dL (11.7-16.9) 01/28/18 05:30 Hct 40.7 % (35.4-49) 01/28/18 05:30 MCV 70.6 fl (80-96) L 01/28/18 05:30 MCHC 31.7 g/dl (32.0-35.9) L 01/28/18 05:30 RDW 13.9 % (11.9-15.9) 01/28/18 05:30 Plt Count 160 K/MM3 (134-434) D 01/28/18 05:30 MPV 8.2 fl (7.5-11.1) 01/28/18 05:30 CMP Sodium 140 mmol/L (136-145) 01/28/18 05:30 Potassium 4.1 mmol/L (3.5-5.1) 01/28/18 05:30 Chloride 106 mmol/L (98-107) 01/28/18 05:30 Carbon Dioxide 30 mmol/L (21-32) 01/28/18 05:30 Anion Gap 4 MMOL/L (8-16) L 01/28/18 05:30 BUN 22 mg/dL (7-18) H 01/28/18 05:30 Creatinine 0.7 mg/dL (0.7-1.3) 01/28/18 05:30 Creat Clearance w eGFR > 60 (>60) 01/28/18 05:30 Random Glucose 117 mg/dL (74-106) H D 01/28/18 05:30 Calcium 8.3 mg/dL (8.5-10.1) L 01/28/18 05:30 Total Bilirubin 0.4 mg/dL (0.2-1.0) 01/28/18 05:30 AST 40 U/L (15-37) H D 01/28/18 05:30 ALT 47 U/L (12-78) 01/28/18 05:30 Alkaline Phosphatase 86 U/L (45-117) 01/28/18 05:30 Total Protein 6.7 g/dl (6.4-8.2) 01/28/18 05:30 Albumin 3.2 g/dl (3.4-5.0) L 01/28/18 05:30 CARDIAC ENZYMES Creatine Kinase 228 IU/L (39-308) 01/25/18 09:45 Troponin I < 0.02 ng/ml (0.00-0.05) 01/25/18 09:45 CT head reviewed Plan: 42 YOM who presented to the ED in severe respiratory distress with his hands around his throat as though he were choking. 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 This occurred just subsequent to the patient eating at home. On arrival to the ED, the patient could not speak, was actively turning cyanotic, severe distress, clutching his throat and required sedation and intubation. Remains in ICU under critical monitoring, has been extubated and on room air. Does have history of Etoh use and seizures but no new seizures. Spoke with resident regarding this and they spoke with family, no recent seizures, none on this admission. Has allergy to phenytoin. CT head reviewed, no acute changes. At this time would not add seizure medication as no recent events and has been seizure free. Unclear if prior seizures may have been in context of Etoh, in which case AEDs would not be effective. If seizure events were to develop would consider keppra 750mg twice daily but can hold off for now. Continue medical, respiratory monitoring and optimization. Monitor blood pressure, maintain normotensive range. Increased hydration recommended. DVT ppx. Critical care time 35 mins.
--- NOTE | 2018-01-28 09:55 | PN ---
Progress Note (short form) - Note Progress Note: awake extubated choked on salad at home now eating feels well Vital Signs Period Temp Pulse Resp BP Sys/Barrios Pulse Ox Last 24 Hr 97.4 F-98.8 F 68-92 14-20 146-168/71-99 95-96 cor-rrr lungs clear abd soft,nt ext no edema CBC, BMP 01/28/18 05:30 01/28/18 05:30 Microbiology 01/25/18 01:20 Blood - Peripheral Venous Blood Culture - Preliminary NO GROWTH OBTAINED AFTER 72 HOURS, INCUBATION TO CONTINUE FOR 2 DAYS. 01/25/18 01:20 Blood - Peripheral Venous Blood Culture - Preliminary NO GROWTH OBTAINED AFTER 72 HOURS, INCUBATION TO CONTINUE FOR 2 DAYS. 01/26/18 03:00 Sputum - Endotrachea Suction/Ventilator Gram Stain - Final 01/26/18 03:00 Sputum - Endotrachea Suction/Ventilator Sputum Culture - Preliminary NORMAL RESPIRATORY EDUARDO 01/25/18 01:20 Urine - Urine - Catheterized Urine Culture - Final NO GROWTH OBTAINED cxray improved a/p airway obstruction choked on salad at homel aspiration pneumonia-antibiotic day #3 can switch to po augmentin- complete 7 days total d/w ICU resident please call back if needed Problem List - Problems (1) Airway obstruction Code(s): J98.8 - OTHER SPECIFIED RESPIRATORY DISORDERS (2) Respiratory arrest Code(s): R09.2 - RESPIRATORY ARREST (3) Aspiration into lower respiratory tract Code(s): T17.800A - UNSP FOREIGN BODY IN OTH PRT RESP TRACT CAUSING ASPHYX, INIT
[2018-01-28] MEDS ORDERED: RANITIDINE HCL 150 MG TABLET (FP) PO SCH (10:00)
[2018-01-28] MEDS ORDERED: methylPREDNISolone NA SUCC 40 MG/1 ML VIAL IVPUSH SCH (10:00)
--- NOTE | 2018-01-28 10:36 | PN ---
Progress Note, MINE WEDGE SAWYER - Note Progress Note: Per neurology note:42 YOM who presented to the ED in severe respiratory distress with his hands around his throat as though he were choking. 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 This occurred just subsequent to the patient eating at home. On arrival to the ED, the patient could not speak, was actively turning cyanotic, severe distress, clutching his throat and required sedation and intubation. Remains in ICU under critical monitoring, has been extubated and on room air. Does have history of Etoh use and seizures but no new seizures. Spoke with resident regarding this and they spoke with family, no recent seizures, none on this admission. Has allergy to phenytoin. CT head reviewed, no acute changes. Has improved in ICU and is now stabilized. No seizure events while admitted and mental status is at baseline. Speech Pathology 01/27- - Speech Evaluation, Impression/Plan Impression: 42 yo male presents with minimal oral preparation dysphagia. Oral and pharyngeal phase are WFL for purees, soft, regular solids (cut small) with thin liquids. No evidence of aspiration on any consistency offer during this session at this time. Senior Care Goals: tolerate the least restrictive diet without s/s of aspiration. Short Term Goals: tolerate regular solids (cut to bite sized pieces) with thin liquids as tolerated with out s/s of aspiration. Recommended Frequency for Therapy: Follow Up PRN - Dysphagia Impressions/Plan Swallowing Skills: WFL (preparation of food) Dysphagia Impressions: Minimal Impairment, Risk of Aspiration *Silent aspiration: cannot be R/O at bedside Dysphagia Treatment Plan: Small Bites, Trial Feedings, Safe Rate, 1/2 tsp. at a time, OOB for meals, OOB for 1 h. after meals, Other (encourage thorough chewing ; remind pt no speaking with food in mouth; offer liquids for every 2-3 bite of solids.) Dysphagia Evaluation Summary: Trial regular solids with thin liquids as tolerated. OOB for meals with 90 degree posture. Observe standard aspiration precautions. Encourage thorough chewing; remind pt no speaking with food in mouth; offer liquids for every 2-3 bite of solids. Results given to churn operator margarine and pcp via chart. MINE WEDGE SAWYER to follow up for diet tolerance. - Recommendations Diet Consistency: Regular Medication Administration: Whole with water Liquids: Thin Liquids Per ID a/p airway obstruction choked on salad at homel aspiration pneumonia-antibiotic day #3 can switch to po augmentin- complete 7 days total ENT saw pt while he was intubated 01/25-Fiberoptic laryngoscopy via left nostril shows no posterior pharyngeal masses/ blood/ lesions, but limited by ET tube. Epiglottis appears normal. Of what I can see and feel, there is nothing abnormal. CT scan Soft tissue neck- Pt was intubated. Nodule right parotid gland. Per report, follow up is needed Pt reports feeling much better, and tolerating reg diet.3 oz water test (-). Voice has improved per pt, but is still dysphonic which pt says is his baseline. Pt reports that he smokes a lot. imp: r/o vocal cord dysfunction/pathology rec: ENT reassessment-r/o vocal cord pathology/dysfunction with Dysphonia/ recent choking incident requiring intubation/results of soft tissue CT/heavy smoker/ alcohol abuse Continue reg diet/thin liquid with observation.
--- NOTE | 2018-01-28 12:17 | PN ---
Teaching Attending Note Name of Resident: Phil Ocampo ATTENDING PHYSICIAN STATEMENT I saw and evaluated the patient. I reviewed the resident's note and discussed the case with the resident. I agree with the resident's findings and plan as documented. SUBJECTIVE: Extubated yesterday without incident. Denies shortness of breath, dysphagia, states voice is hoarse at baseline. OBJECTIVE: Vital Signs Period Temp Pulse Resp BP Sys/Barrios Pulse Ox Last 24 Hr 97.4 F-98.5 F 68-84 14-20 146-168/71-99 95-96 Intake & Output 01/25/18 01/26/18 01/27/18 01/28/18 23:59 23:59 23:59 23:59 Intake Total 318 2178 1132 100 Output Total 2050 2300 1500 500 Balance -1732 -122 -368 -400 Weight 104.281 kg 104.417 kg 102.512 kg 102.965 kg Gen: NAD in chair Neck: no stridor Heart: RRR Lung: decreased breath sounds at the bases Abd: soft, nontender Ext: no edema CBC, BMP 01/28/18 05:30 01/28/18 05:30 Active Medications Amoxicillin/Clavulanate Potassium (Augmentin - 875mg Tablet) 1 tab PO BID@0800, 1730 [facility] Diphenhydramine HCl (Benadryl Injection -) 25 mg IVPUSH Q6H PRN PRN Reason: SHORT OF BREATH/WHEEZING Heparin Sodium (Porcine) (Heparin -) 5,000 unit SQ TID [facility] Last Admin: 01/28/18 06:07 Dose: 5,000 unit Methylprednisolone Sodium Succinate (Solu-Medrol -) 40 mg IVPUSH DAILY [facility] Last Admin: 01/28/18 09:03 Dose: 40 mg Ranitidine HCl (Zantac -) 150 mg PO BID [facility] Last Admin: 01/28/18 09:03 Dose: 150 mg ASSESSMENT AND PLAN: Acute Hypoxic Respiratory Failure improved r/o Pneumonia vs Atelectasis Seizure Disorder - can d/c steroids - antihistamines as needed - complete antibiotic course - PO as tolerated - DVT prophylaxis - ENT f/u, can be done as outpt - can monitor on floor or discharge home
--- NOTE | 2018-01-28 12:43 | PN ---
Physical Exam: SUBJECTIVE: Patient seen and examined. Wants to go home. No acute events overnight. Pt. ate a regular diet without complications. Pt. is able to walk w/ o assistance. Pt. stated that at home he takes Tylenol and Advil every night to go to sleep. Counseled pt. against this action. Pt. denies any SOB, CP, fever or any problems. OBJECTIVE: Vital Signs Period Temp Pulse Resp BP Sys/Barrios Pulse Ox Last 24 Hr 97.4 F-98.5 F 68-84 14-20 146-168/71-99 95-96 GENERAL: The patient is awake, alert, and oriented to name and location, NOT to date, in no acute distress. EYES: sclera anicteric, conjunctiva clear. No ptosis. ENT: Ears normal, nares patent, oropharynx clear without exudates, moist mucous membranes, Mallampati 3. LUNGS: Breath sounds equal, clear to auscultation bilaterally, no wheezes, no crackles, no accessory muscle use. HEART: Regular rate and rhythm, S1, S2 without murmur EXTREMITIES: warm, well-perfused, no edema. PSYCH: Normal mood, normal affect. SKIN: Warm, dry, normal turgor Laboratory Results - last 24 hr 01/28/18 01/28/18 05:30 05:30 WBC 9.4 RBC 5.76 H Hgb 12.9 Hct 40.7 MCV 70.6 L MCH 22.4 L MCHC 31.7 L RDW 13.9 Plt Count 160 D MPV 8.2 Absolute Neuts (auto) 6.3 Neutrophils % 67.0 D Lymphocytes % 25.1 D Monocytes % 7.8 Eosinophils % 0.0 Basophils % 0.1 Nucleated RBC % 0 Sodium 140 Potassium 4.1 Chloride 106 Carbon Dioxide 30 Anion Gap 4 L BUN 22 H Creatinine 0.7 Creat Clearance w eGFR > 60 Random Glucose 117 H D Calcium 8.3 L Phosphorus 2.4 L D Magnesium 2.6 H Total Bilirubin 0.4 AST 40 H D ALT 47 Alkaline Phosphatase 86 Total Protein 6.7 Albumin 3.2 L Active Medications Current Medications Amoxicillin/Clavulanate Potassium (Augmentin - 875mg Tablet) 1 tab PO BID@0800, 1730 [facility] Diphenhydramine HCl (Benadryl Injection -) 25 mg IVPUSH Q6H PRN PRN Reason: SHORT OF BREATH/WHEEZING Heparin Sodium (Porcine) (Heparin -) 5,000 unit SQ TID [facility] Last Admin: 01/28/18 06:07 Dose: 5,000 unit Ranitidine HCl (Zantac -) 150 mg PO BID [facility] Last Admin: 01/28/18 09:03 Dose: 150 mg ASSESSMENT/PLAN: Pt is a 42 yo M with PMH of sz, EtOH use, HCV (s/p Harvani) who presents to the ER in respiratory distress likely 2/2 to choking on food (laryngeal edema after retrieving stuck food) and from pt holding his neck. CT neck showed no significant soft tissue swelling, but did show b/l UL lung consolidation possibly 2/2 to aspiration. #Pulmonary -Acute hypoxic respiratory failure 2/2 upper respiratory obstruction Resolved Switched to Augmentin 875 mg PO BID from Unasyn D/C Solumedrol Pt was extubated on 01/27/18, no requiring additional O2 Neck CT - b/l UL consolidation (aspiration?) and 6 mm R partoid gland (adenoma?) CT head showed no acute pathology. CT chest showed bibasilar consolidation/atelectasis with associated pleural effusions. Trop <.02 Per ENT (Dr. Quach): extubate if able, possible allergen or laryngospasm Laryngoscopy via L nostril showed no posterior masses or lesions -Dysphagia Speech and swallow study appreciated, recommend normal diet but making sure to chew thoroughly and f/u evaluation by ENT as outpatient. #Gastroenterology -Switched IV Pepcid 20mg to PO Ranitidine 150mg to encourage PO intake -Lactobacillus to help prevent C.Diff. #Renal -D/c-ed Gomez 01/27/18 -UTox (to r/o toxic cause for sedation) positive for Benzodiazepines #DVT Prophylaxis -B/l SCDs -Heparin 5000 u TID -Restraints discontinued as pt is cooperative. #F/E/N -encourage PO intake -replete electrolytes as needed, Phosphorous repleted. -Pt. would benefit from f/u ENT consult to evaluate continued hoarse voice and hx. of dysphagia post extubation. #Dispo -Home or Med/Surg Visit type - Emergency Visit Emergency Visit: Yes ED Registration Date: 01/25/18 Care time: The patient presented to the Emergency Department on the above date and was hospitalized for further evaluation of their emergent condition. - New Patient This patient is new to me today: Yes Date on this admission: 01/28/18 - Critical Care Critical Care patient: No - Discharge Referral Referred to [facility] Med P.C.: No
[2018-01-28 16:24] VITALS: BP 147/78; PULSE 72
--- NOTE | 2018-01-28 16:31 | PN ---
Progress Note, Physician Chief Complaint: Acute respiratory arrest History of Present Illness: NAD, wants to go home extubated yesterday self ambulatory, family at bedside, tolerating po intake - Current Medication List Current Medications: Active Medications Amoxicillin/Clavulanate Potassium (Augmentin - 875mg Tablet) 1 tab PO BID@0800, 1730 [facility] Heparin Sodium (Porcine) (Heparin -) 5,000 unit SQ TID [facility] Last Admin: 01/28/18 14:19 Dose: 5,000 unit Lactobacillus Acidophilus (Bacid -) 1 tab PO DAILY [facility] Ranitidine HCl (Zantac -) 150 mg PO BID [facility] Last Admin: 01/28/18 09:03 Dose: 150 mg - Objective Vital Signs: Vital Signs Temperature 98.6 F 01/28/18 14:00 Pulse Rate 72 01/28/18 16:00 Respiratory Rate 19 01/28/18 16:00 Blood Pressure 147/78 01/28/18 16:00 O2 Sat by Pulse Oximetry (%) 96 01/28/18 08:08 Constitutional: Yes: Well Nourished, No Distress, Calm Cardiovascular: Yes: Regular Rate and Rhythm Respiratory: Yes: Regular Gastrointestinal: Yes: Normal Bowel Sounds, Soft Musculoskeletal: Yes: WNL Extremities: Yes: WNL Edema: No Peripheral Pulses WNL: Yes Neurological: Yes: Alert, Oriented Psychiatric: Yes: Alert, Oriented Labs: CBC, BMP 01/28/18 05:30 01/28/18 05:30 INR, PTT INR 1.05 (0.83-1.09) 01/25/18 01:20 Problem List - Problems (1) Aspiration into lower respiratory tract Assessment/Plan: -Breathing well -Seen by pulmonary -tolerating po intake Code(s): T17.800A - UNSP FOREIGN BODY IN OTH PRT RESP TRACT CAUSING ASPHYX, INIT (2) Pneumonia Assessment/Plan: -Amoxicillin 1 tab BID x 7 days -Bacid 1 cap daily -Zantac 1 tab daily Code(s): J18.9 - PNEUMONIA, UNSPECIFIED ORGANISM Assessment/Plan see problem list
[2018-01-28 16:50] VITALS: TEMP 98.3
[2018-01-28] MEDS ORDERED: AMOX TR/POT CLAV 875MG/125MG TABLETS (FP) PO SCH (17:30)
[2018-01-29] MEDS ORDERED: LACTOBACILLUS ACIDOPHILUS 1 TABLET PO SCH (10:00)
== END 2018-01-28 17:13 | disposition home or self-care (01) | DRG 133 ==
LOC: JER 00:07 → JERBED 01:55 → JICU 03:48
PROVIDERS: ADMIT Internal Medicine; ATTEND Family Medicine
PROC: 5A1945Z Respiratory Ventilation, 24-96 Consecutive Hours (ICD-10-PCS; principal; 2018-01-25)
PROC: 0BH17EZ Insertion of Endotracheal Airway into Trachea, Via Natural or Artificial Opening (ICD-10-PCS; 2018-01-25)
PROC: 0CJS8ZZ Inspection of Larynx, Via Natural or Artificial Opening Endoscopic (ICD-10-PCS; 2018-01-25)
DX: J96.01 Acute respiratory failure with hypoxia (principal); J69.0 Pneumonitis due to inhalation of food and vomit; T17.820A Food in other parts of respiratory tract causing asphyxiation, initial encounter; R13.10 Dysphagia, unspecified; B19.20 Unspecified viral hepatitis C without hepatic coma; F10.10 Alcohol abuse, uncomplicated; E66.9 Obesity, unspecified; G40.909 Epilepsy, unspecified, not intractable, without status epilepticus; F17.210 Nicotine dependence, cigarettes, uncomplicated; J98.8 Other specified respiratory disorders; Z68.36 Body mass index [BMI] 36.0-36.9, adult; J98.11 Atelectasis; X58.XXXA Exposure to other specified factors, initial encounter; Y93.89 Activity, other specified; Y92.098 Other place in other non-institutional residence as the place of occurrence of the external cause; Y99.8 Other external cause status
CPT/HCPCS: 36415; 36600; 70450-TC; 70491-TC; 71045-TC-FY; 71250-TC; 80053; 80307; 81003; 81015; 82550; 82553; 82803; 83036; 83605; 83735; 84100; 84443; 84484; 85025; 85610; 85730; 87040; 87070; 87086; 87205; 93005; 93010; 94002; 97116-GP; 97161-GP; 99285-25; G0480; J1644

== ENCOUNTER 2018-04-11 18:35 | Emergency (ER) | payer OTHER ==
[2018-04-11 18:43] VITALS: TEMP 97.2; BMI 39.5
--- NOTE | 2018-04-11 19:08 | PDOC ---
Attending Attestation - HPI HPI: 04/11/18 21:56 The patient is a 42 year old male with past medical history of seizures, non- compliant with medication this week, who presents to the ED with complaints of severe left sided pain that began this evening. Patient states he was in the bathroom when he felt like he was going to have a seizure, but did not. Instead he developed severe pain to his left lateral neck, shoulder and knee which has not subsided since. Patient was brought in by EMS. Denies history of fall or injury. Denies any fevers, chills, NVD, cough, SOB, chest pain, or urinary complaints. - Physicial Exam PE: 04/11/18 22:21 GENERAL: Awake, alert, and fully oriented, in no acute distress HEAD: No signs of trauma NECK: Normal ROM, supple, no lymphadenopathy, JVD, or masses. Tenderness over left neck, clavicle and and shoulder on palpation. No signs of deformity, step off or crepitus. LUNGS: Breath sounds equal, clear to auscultation bilaterally. No wheezes, and no crackles HEART: Tachycardic. ABDOMEN: Soft, nontender, normoactive bowel sounds. EXTREMITIES: Normal range of motion, no edema. No clubbing or cyanosis. No cords, erythema, or tenderness NEUROLOGICAL: Cranial nerves II through XII grossly intact. Normal speech, normal gait SKIN: Warm, Dry, normal turgor, no rashes - Medical Decision Making 04/11/18 21:56 Documentation prepared by Nilda Brar, acting as medical records coder for Radha Aguirre DO. <Nilda Brar - Last Filed: 04/11/18 22:21> - Resident Resident Name: Deandra Monk - ED Attending Attestation I have performed the following: I have examined & evaluated the patient, The case was reviewed & discussed with the resident, I agree w/resident's findings & plan, Exceptions are as noted - Medical Decision Making 04/11/18 19:07 I, Dr. Radha Aguirre DO, attest that this document has been prepared under my direction and personally reviewed by me in its entirety. I further attest, that it accurately reflects all work, treatment, procedures and medical decision -making performed by me. 04/11/18 20:27 a/p: 42yo male with hx of seizures with acute onset of L neck, upper back, and shoulder pain -neurovasc intact -denies trauma -pt with acute ttp across posterior shoulder and neck -no deformities -no cp/sob -no low back pain -pt appears dehydrated, hasn't been eating or drinking or taking his medications -will send labs, ct head, c spine, t spine for midline ttp -will medicate for pain -will hydrate -will monitor and reassess 04/11/18 22:18 xrays negative for acute findings, official radiology read pending pt feeling better after medication c spine fusion c4-[address], no new fx or abnl visualized on ct 04/11/18 22:40 pt states feeling better discussed imaging studies and labs pt states he wants to go home and feels better 04/12/18 02:07 pt with FROM of the shoulder and his neck. Pt able to roll over in the bed. Sits up with ease. Feeling much better <Radha Aguirre - Last Filed: 04/12/18 02:08> Heart Score/ECG Review - ECG Intrepretation Comment:: 04/11/18 19:07 sinus at 92, nl axis, nl interval, no acute st/t wave findings <Radha Aguirre - Last Filed: 04/12/18 02:08>
--- NOTE | 2018-04-11 19:18 | PDOC ---
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 Initial report was that he had a seizure earlier today, but he and his sons and nephew all deny that report at this time. Mr Sweeney denies that anything unusual happened today at all. He denies any fever, chills, headache, fall, recent seizures, or injury. He reports that he had been watching TV and got up to go to the bathroom when he started having severe pain in his left body. He is currently unable to move his left arm or left leg secondary to pain, but he repeatedly denies injury. He does report that he has not taken any medication at home for one week because it made him "dizzy" though apparently has never done so before. He is unable to give additional details, just states that he is in pain. Past History - Past Medical History Allergies/Adverse Reactions: Allergies Allergy/AdvReac Type Severity Reaction Status Date / Time phenytoin sodium extended Allergy Intermediate Itching Verified 04/11/18 18:43 [From Navneetantin] Home Medications: Ambulatory Orders Methocarbamol [Robaxin -] 500 mg PO BID PRN 3 Days #9 tablet 04/11/18 Anemia: No Asthma: No Cancer: No Cardiac Disorders: Yes (a fib) CVA: No COPD: No CHF: No Dementia: No Diabetes: No GI Disorders: No Disorders: No HTN: No Hypercholesterolemia: No Kidney Stones: Yes Liver Disease: Yes Seizures: Yes Thyroid Disease: No - Surgical History Abdominal Surgery: No Appendectomy: No Cardiac Surgery: No Cholecystectomy: No Lung Surgery: No Neurologic Surgery: Yes Orthopedic Surgery: No - Immunization History Immunization Up to Date: Yes - Suicide/Smoking/Psychosocial Hx Smoking History: Current every day smoker Have you smoked in the past 12 months: Yes Number of Cigarettes Smoked Daily: 30 Information on smoking cessation initiated: No 'Breaking Loose' booklet given: 07/01/17 Hx Alcohol Use: No Drug/Substance Use Hx: No Substance Use Type: None Review of Systems - Review of Systems Comments:: General: No fevers, no chills, no weight or appetite change, no malaise HEENT: No changes in vision, no changes in hearing, no congestion, no sore throat CV: No chest pain, no palpitations, no LE edema Pulm: No SOB, no cough, no wheezing GI: No nausea or vomiting, no change in bowel habits, no melena : No frequency, no urgency, no dysuria Musc: See HPI Skin: No rash, no lesions, no erythema Endo: No excessive thirst, no heat/cold intolerance Heme: No unusual bruising or bleeding, no swollen glands Neuro: No syncope, no numbness/tingling, no focal weakness Vasc: No claudication Psych: No recent change in mood, no SI or HI *Physical Exam - Vital Signs Last Vital Signs Temp Pulse Resp BP Pulse Ox 97.2 F L 100 H 18 144/88 100 04/11/18 18:37 04/11/18 18:37 04/11/18 18:37 04/11/18 18:37 04/11/18 18:37 - Physical Exam Comments: General: Comfortable, no acute distress HEENT: PERRL, EOMI. Neck ROM limited by pain. Midline cervical tenderness Cards: RRR Pulm: Comfortable on room air, clear to auscultation bilaterally Back: Midline thoracic spine TTP Abd: Soft, nontender, nondistended Ext: Anterior and superior L shoulder pain. Pain with L knee flexion. No palpable or visible deformity Vasc: Extremities WWP. Skin: Normal color, no rashes or lesions Neuro: A&Ox3, CN grossly intact, normal speech, motor/sensory grossly intact and symmetric Psych: Mood appropriate to situation ED Treatment Course - LABORATORY CBC & Chemistry Diagram: 04/11/18 19:40 04/11/18 19:40 Medical Decision Making - Medical Decision Making 04/11/18 19:18 Juarez Sweeney is a 42yo man with a PMH of alcohol induced seizures, alcohol abuse , hepC (treated) who presents reporting left-sided arm and leg pain along with midline cervical and thoracic tenderness that started acutely this evening. He denies any trauma, seizure, or other injury prior to the pain starting. - Able to move distal hand and foot, sensation to light touch intact. Unable v refusing to move extremities secondary to pain. - Midline tenderness along cervical and thoracic spine suggestive of possible body injury - CT head, c-spine, thoracic spine to r/o acute injury - Xrays of left shoulder, left clavicle, and left knee to r/o bony injury - 6mg IV morphine and 5mg PO valium for pain - 1L NS fluid bolus as lips appear dry 04/11/18 21:36 - Appears much more comfortable following medications - CT reads pending - Xrays reviewed. No obvious abnormalities noted. 04/11/18 22:55 - 30mg toradol IV for continued pain - Now able to move LUE and LLE freely - Plan to d/c home. Discussed with Mr Sweeney, he agrees with the plan to discharge home. Seen and discussed with Dr Aguirre. Deandra Monk PGY1 *DC/Admit/Observation/Transfer Diagnosis at time of Disposition: Muscle spasm, Knee pain, left, Shoulder pain, left - Discharge Dispostion Disposition: HOME Condition at time of disposition: Stable Decision to Admit order: No - Prescriptions Prescriptions: Methocarbamol [Robaxin -] 500 mg PO BID PRN 3 Days #9 tablet PRN Reason: Pain - Referrals Referrals: Liana Joseph MD [Primary Care Provider] - Jhon Hawthorne MD, [facility] [Staff Physician] - Ismael Moore DO [Staff Physician] - - Patient Instructions Printed Discharge Instructions: DI for Shoulder Pain, DI for Knee Pain Additional Instructions: Discharge Instructions: You were seen in the emergency department for pain along your left shoulder and left knee. You also had pain in your neck and upper back. You had xrays of your shoulder, collar bone, and knee. You also had CT scans of your head, neck, and upper back. There were no abnormalities found and no broken bones. Your pain improved when you were given a muscle relaxant and some IV pain medication. You have been discharged with a similar muscle relaxant, Robaxin, that you can take at home. You may use this every 8 hours as needed for pain. You may also use ibuprofen 600-800mg (3-4 tablets of Advil or Motrin) every 8 hours as needed for pain. You might want to take these medications at the same time for better pain control. Applying heat or ice packs to the painful areas may also help relax the muscles. Call your primary doctor on Friday morning to schedule a follow up appointment. You should discuss your home medications with him as you reported having problems with them over the past week. You have also been referred to see Dr Hawthorne (neurosurgery) for your neck and back pain. You have been referred to Dr Moore (orthopedics) for your shoulder and leg pain. Call to schedule appointments within the next week for follow up. Seek care at the nearest emergency room if you have sudden weakness, numbness, or difficulty moving one side of your body, facial droop, difficulty speaking, or sudden confusion. - Post Discharge Activity
[2018-04-11] MEDS ORDERED: morphine CARPU-JECT 4 MG/1 ML DISP.SYRIN IVPUSH ONE (19:20)
[2018-04-11] MEDS ORDERED: SODIUM CHLORIDE 0.9% 500 ML INFUS.BAG IV ONE (19:20)
[2018-04-11] MEDS ORDERED: diazePAM 5 MG TABLET PO ONE (19:20)
[2018-04-11] MEDS ORDERED: MORPHINE SULFATE 2 MG/ML VIAL ONE (19:26)
[2018-04-11] MEDS ORDERED: morphine SULFATE 4 MG/ML VIAL ONE (19:26)
[2018-04-11] MEDS ORDERED: diazePAM 5 MG TABLET ONE (19:27)
[2018-04-11 20:18] LABS: BASO % 0.4 % (0-2.0); EOS % 10.7 % (0-4.5); HEMATOCRIT 41.3 % (35.4-49); HEMOGLOBIN 13.8 GM/dL (11.7-16.9); LYMPH % 17.2 % (8-40); MCH 23.4 pg (25.7-33.7); MCHC 33.5 g/dl (32.0-35.9); MEAN PLT VOLUME 8.8 fl (7.5-11.1); NEUT % 63.7 % (42.8-82.8); PLATELET COUNT 211 K/MM3 (134-434); RDW 14.4 % (11.9-15.9); WHITE BLOOD COUNT 8.4 K/mm3 (4.0-10.0)
[2018-04-11 20:29] LABS: INR 1.01 (0.83-1.09); PROTHROMBIN TIME (PATIENT) 11.9 SEC (9.7-13.0)
[2018-04-11 20:33] LABS: ACTIVATED PTT 26.3 SECONDS (25.2-36.5)
[2018-04-11 20:40] LABS: ALBUMIN 3.8 g/dl (3.4-5.0); ALK PHOS 130 U/L (45-117); ANION GAP 9 MMOL/L (8-16); BILIRUBIN,TOTAL 0.2 mg/dL (0.2-1); BLOOD UREA NITROGEN 15 mg/dL (7-18); CALCIUM 8.9 mg/dL (8.5-10.1); CHLORIDE 105 mmol/L (98-107); CO2 26 mmol/L (21-32); GLUCOSE,RANDOM 97 mg/dL (74-106); SGOT/AST 24 U/L (15-37); SGPT/ALT 36 U/L (13-61); SODIUM 141 mmol/L (136-145); TOT PROT 7.7 g/dl (6.4-8.2)
[2018-04-11] MEDS ORDERED: KETOROLAC TROMETHAMINE 30 MG/1 ML VIAL IVPUSH ONE (22:10)
[2018-04-11] MEDS ORDERED: KETOROLAC TROMETHAMINE 30 MG/1 ML VIAL ONE (22:15)
[2018-04-11 23:14] VITALS: BP 140/82; PULSE 89
--- NOTE | 2018-07-03 15:03 | EKG ---
Test Reason : Blood Pressure : / mmHG Vent. Rate : 092 BPM Atrial Rate : 092 BPM P-R Int : 166 ms QRS Dur : 090 ms QT Int : 344 ms P-R-T Axes : 045 033 009 degrees QTc Int : 425 ms NORMAL SINUS RHYTHM NORMAL ECG Confirmed by ANDRES RAMIREZ MD ([id number]) on 07/03/2018 3:03:09 PM Referred By: Confirmed By:ANDRES RAMIREZ MD
== END 2018-04-11 23:07 | disposition home or self-care (01) ==
LOC: JER 18:35
PROC: 3E033NZ Introduction of Analgesics, Hypnotics, Sedatives into Peripheral Vein, Percutaneous Approach (ICD-10-PCS; principal; 2018-04-11)
PROC: 3E0333Z Introduction of Anti-inflammatory into Peripheral Vein, Percutaneous Approach (ICD-10-PCS; 2018-04-11)
DX: M25.562 Pain in left knee (principal); M62.838 Other muscle spasm; I48.91 Unspecified atrial fibrillation; G40.909 Epilepsy, unspecified, not intractable, without status epilepticus; F10.10 Alcohol abuse, uncomplicated; B18.2 Chronic viral hepatitis C
CPT/HCPCS: 36415; 70450-TC; 72125-TC; 72128-TC; 73000-TC-LT-FY; 73030-TC-LT-FY; 73562-TC-LT-FY; 80053; 83605; 85025; 85610; 85730; 93005; 93010; 99283-25

== ENCOUNTER 2018-04-19 23:30 | Emergency (ER) | payer OTHER ==
[2018-04-20] MEDS ORDERED: morphine CARPU-JECT 2 MG/1 ML DISP.SYRIN IVPUSH ONE ×2 (01:11→01:21)
[2018-04-20] MEDS ORDERED: SODIUM CHLORIDE 0.9% 500 ML INFUS.BAG IV ONE (01:11)
[2018-04-20] MEDS ORDERED: MORPHINE SULFATE 2 MG/ML VIAL ONE ×2 (01:13→01:23)
[2018-04-20 01:25] VITALS: BP 157/103; PULSE 105; TEMP 99.4; BMI 39.9
[2018-04-20 01:42] LABS: URINE APPEARANCE SLCLOUDY; URINE BILIRUBIN NEGATIVE (<2.0 mg/dL); URINE COLOR LTYELLOW; URINE GLUCOSE (UA) NEGATIVE (NEGATIVE); URINE KETONE NEGATIVE (NEGATIVE); URINE LEUK ESTERASE TRACE (NEGATIVE); URINE NITRITE NEGATIVE (NEGATIVE); URINE PROTEIN NEGATIVE (NEGATIVE); URINE UROBILINOGEN NEGATIVE mg/dL (0.2-1.0)
[2018-04-20 01:54] LABS: URINE BACTERIA RARE /hpf (NONE SEEN); URINE HYALINE CAST 1 /lpf
--- NOTE | 2018-04-20 01:55 | PDOC ---
History of Present Illness - History of Present Illness Initial Comments: This patient is a 42 year old male with PMHx of seizures, kidney stones, alcohol use, HCV s/p Harvoni treatment, who presents with hematuria and testicular pain since yesterday. Patient states that since 9:30 pm on 04/18 he began having testicular pain and hematuria. He states that around 10:00pm on 04/19 he noticed significant left testicular swelling. He states he has been having normal BM but endorses pain and blood per penis upon urinating. Patient states he has been taking Motrin 200mg for the pain since 6pm. Patient was seen here last week s/p seizure and was given antibiotics. PCP: Liana Salguero - Liver issues 04/20/18 02:05 <Vandana Bills - Last Filed: 04/20/18 02:05> <Hui Neal - Last Filed: 04/20/18 04:17> - General Chief Complaint: Hematuria Stated Complaint: HEMATURIA Time Seen by Provider: 04/20/18 00:59 Past History <Vandana Bills - Last Filed: 04/20/18 02:05> - Past Medical History Anemia: No Asthma: No Cancer: No Cardiac Disorders: No CVA: No COPD: No CHF: No Dementia: No Diabetes: No GI Disorders: No Disorders: No HTN: No Hypercholesterolemia: No Kidney Stones: Yes Liver Disease: Yes Seizures: Yes Thyroid Disease: No - Surgical History Abdominal Surgery: No Appendectomy: No Cardiac Surgery: No Cholecystectomy: No Lung Surgery: No Neurologic Surgery: Yes Orthopedic Surgery: No - Immunization History Immunization Up to Date: Yes - Suicide/Smoking/Psychosocial Hx Smoking History: Current every day smoker Have you smoked in the past 12 months: Yes Number of Cigarettes Smoked Daily: 20 Information on smoking cessation initiated: No 'Breaking Loose' booklet given: 07/01/17 Hx Alcohol Use: No Drug/Substance Use Hx: No Substance Use Type: None <Hui Neal - Last Filed: 04/20/18 04:17> - Past Medical History Allergies/Adverse Reactions: Allergies Allergy/AdvReac Type Severity Reaction Status Date / Time phenytoin sodium extended Allergy Intermediate Itching Verified 04/20/18 01:52 [From Dilantin] Home Medications: Ambulatory Orders Methocarbamol [Robaxin -] 500 mg PO BID PRN 3 Days #9 tablet 11/24/18 levoFLOXacin [Levaquin -] 500 mg PO DAILY #9 tablet 04/20/18 Review of Systems - Review of Systems Comments:: GENERAL/CONSTITUTIONAL: No fever or chills. No weakness. HEAD, EYES, EARS, NOSE AND THROAT: No change in vision. No ear pain or discharge. No sore throat. CARDIOVASCULAR: No chest pain or shortness of breath. RESPIRATORY: No cough, wheezing, or hemoptysis. GASTROINTESTINAL: No nausea, vomiting, diarrhea or constipation. GENITOURINARY: +dysuria, +hematuria, +testicular pain and swelling (L>R) MUSCULOSKELETAL: +b/l inguinal pain. +flank pain. No joint pain. No neck pain. SKIN: No rash NEUROLOGIC: No headache, vertigo, loss of consciousness, or change in strength/ sensation. ENDOCRINE: No increased thirst. No abnormal weight change. HEMATOLOGIC/LYMPHATIC: No anemia, easy bleeding, or history of blood clots. ALLERGIC/IMMUNOLOGIC: No hives or skin allergy. 04/20/18 02:06 <Vandana Bills - Last Filed: 04/20/18 02:05> *Physical Exam - Vital Signs Last Vital Signs Temp Pulse Resp BP Pulse Ox 99.4 F 105 H 20 157/103 H 98 04/19/18 23:56 04/19/18 23:56 04/19/18 23:56 04/19/18 23:56 04/19/18 23:56 - Physical Exam Comments: GENERAL: Awake, alert, and fully oriented, in no moderate distress HEAD: No signs of trauma EYES: PERRLA, EOMI, sclera anicteric, conjunctiva clear LUNGS: Breath sounds equal, clear to auscultation bilaterally. No wheezes, and no crackles HEART: Regular rate and rhythm, normal S1 and S2, no murmurs, rubs or gallops ABDOMEN: Soft, b/l inguinal tenderness to palpation, normoactive bowel sounds. EXTREMITIES: Normal range of motion, no edema. No clubbing or cyanosis. No cords, erythema, or tenderness NEUROLOGICAL: Cranial nerves II through XII grossly intact. Normal speech. SKIN: Warm, Dry, normal turgor, no rashes or lesions noted. : Testicular tenderness to palpation. Left testes 1.5x >right. Cremaster reflex normal bilaterally. 04/20/18 02:06 <Vandana Bills - Last Filed: 04/20/18 02:05> - Vital Signs Last Vital Signs Temp Pulse Resp BP Pulse Ox 99.4 F 105 H 20 157/103 H 98 04/19/18 23:56 04/19/18 23:56 04/19/18 23:56 04/19/18 23:56 04/19/18 23:56 <Hui Neal - Last Filed: 04/20/18 04:17> Moderate Sedation - Procedure Monitoring Vital Signs: Procedure Monitoring Vital Signs Temperature 99.4 F 04/19/18 23:56 Pulse Rate 105 H 04/19/18 23:56 Respiratory Rate 20 04/19/18 23:56 Blood Pressure 157/103 H 04/19/18 23:56 O2 Sat by Pulse Oximetry (%) 98 04/19/18 23:56 <Vandana Bills - Last Filed: 04/20/18 02:05> - Procedure Monitoring Vital Signs: Procedure Monitoring Vital Signs Temperature 99.4 F 04/19/18 23:56 Pulse Rate 105 H 04/19/18 23:56 Respiratory Rate 20 04/19/18 23:56 Blood Pressure 157/103 H 04/19/18 23:56 O2 Sat by Pulse Oximetry (%) 98 04/19/18 23:56 <Hui Neal - Last Filed: 04/20/18 04:17> ED Treatment Course - ADDITIONAL ORDERS Additional order review: Laboratory Results 04/20/18 01:23 Urine Color Ltyellow Urine Appearance Slcloudy Urine pH 7.0 D Ur Specific [place] 1.017 Urine Protein Negative Urine Glucose (UA) Negative Urine Ketones Negative Urine Blood Negative Urine Nitrite Negative Urine Bilirubin Negative Urine Urobilinogen Negative Ur Leukocyte Esterase Trace Urine WBC (Auto) 8 Urine RBC (Auto) 2 Urine Bacteria Rare Hyaline Casts 1 - Medications Given in the ED: ED Medications Discontinued Medications Generic Name Dose Route Start Last Admin Trade Name Freq PRN Reason Stop Dose Admin Morphine Sulfate 2 mg 04/20/18 01:11 04/20/18 01:17 Morphine Injection - IVPUSH 04/20/18 01:12 2 mg ONCE ONE Administration Morphine Sulfate 2 mg 04/20/18 01:21 04/20/18 01:27 Morphine Injection - IVPUSH 04/20/18 01:22 2 mg ONCE ONE Administration Sodium Chloride 1,000 ml 04/20/18 01:11 04/20/18 01:17 Normal Saline - IV 04/20/18 01:12 1,000 ml ONCE ONE Administration <Vandana Bills - Last Filed: 04/20/18 02:05> - LABORATORY CBC & Chemistry Diagram: 04/20/18 03:20 04/20/18 03:20 - ADDITIONAL ORDERS Additional order review: Laboratory Results 04/20/18 01:23 Urine Color Ltyellow Urine Appearance Slcloudy Urine pH 7.0 D Ur Specific [place] 1.017 Urine Protein Negative Urine Glucose (UA) Negative Urine Ketones Negative Urine Blood Negative Urine Nitrite Negative Urine Bilirubin Negative Urine Urobilinogen Negative Ur Leukocyte Esterase Trace - RADIOLOGY Radiology Studies Ordered: Category Date Time Status SCROTUM AND CONTENTS US [US] Stat Ultrasound 04/20/18 01:21 Ordered - Medications Given in the ED: ED Medications Discontinued Medications Generic Name Dose Route Start Last Admin Trade Name Elizabeth PRN Reason Stop Dose Admin Morphine Sulfate 2 mg 04/20/18 01:11 04/20/18 01:17 Morphine Injection - IVPUSH 04/20/18 01:12 2 mg ONCE ONE Administration Morphine Sulfate 2 mg 04/20/18 01:21 04/20/18 01:27 Morphine Injection - IVPUSH 04/20/18 01:22 2 mg ONCE ONE Administration Sodium Chloride 1,000 ml 04/20/18 01:11 04/20/18 01:17 Normal Saline - IV 04/20/18 01:12 1,000 ml ONCE ONE Administration <Hui Neal - Last Filed: 04/20/18 04:17> Medical Decision Making - Medical Decision Making 04/20/18 03:13 Referring Physician: RANDY SNYDER Patient Name: MUFID LYNDA THIS IS A PRELIMINARY REPORT FROM [facility] DATE OF SERVICE: 2018-04-20 01:30:35 IMAGES: 38 EXAM: ULTRASOUND SCROTUM and DUPLEX SCROTAL CONTENTS (INCLUDES ARTERIAL AND VENOUS IMAGING) No testicular torsion bilaterally. Appropriate arterial and venous waveforms present. Hypervascular left epididymis, probably epididymitis. Unremarkable right epididymis. No hydroceles or varicoceles. 04/20/18 03:20 Pt is feeling slightly better. He will be treated with levaquin 500 daily x 10 days for epididymitis. He has only as sexual partner. 04/20/18 04:17 Labs normal. Pt will be discharged home with urology f/u <Hui Neal - Last Filed: 04/20/18 04:17> *DC/Admit/Observation/Transfer - Attestations Scribe Attestion: 04/20/18 02:06 Documentation prepared by Vandana Bills, acting as medical transcription supervisor for Hui Neal MD. <Vandana Bills - Last Filed: 04/20/18 02:05> - Discharge Dispostion Decision to Admit order: No <Hui Neal - Last Filed: 04/20/18 04:17> Diagnosis at time of Disposition: Epididymitis - Discharge Dispostion Disposition: HOME Condition at time of disposition: Stable - Prescriptions Prescriptions: levoFLOXacin [Levaquin -] 500 mg PO DAILY #9 tablet - Referrals Referrals: Liana Joseph MD [Primary Care Provider] - Macho Tripathi MD [Staff Physician] - - Patient Instructions Printed Discharge Instructions: DI for Epididymitis - Post Discharge Activity
[2018-04-20] MEDS ORDERED: CEFTRIAXONE 1,000 MG in DEXTROSE 5%-WATER - 50 ML IVPB ONE (02:14)
[2018-04-20] MEDS ORDERED: CEFTRIAXONE 1 GM/50 ML BAG ONE (02:21)
[2018-04-20 03:52] LABS: BASO % 0.5 % (0-2.0); EOS % 7.3 % (0-4.5); HEMATOCRIT 37.4 % (35.4-49); HEMOGLOBIN 12.5 GM/dL (11.7-16.9); INR 1.16 (0.83-1.09); LYMPH % 24.2 % (8-40); MCH 23.1 pg (25.7-33.7); MCHC 33.4 g/dl (32.0-35.9); MEAN CELL VOLUME 69.1 fl (80-96); MEAN PLT VOLUME 8.6 fl (7.5-11.1); MONO % 7.5 % (3.8-10.2); NEUT % 60.5 % (42.8-82.8); PLATELET COUNT 166 K/MM3 (134-434); PROTHROMBIN TIME (PATIENT) 13.7 SEC (9.7-13.0); RBC 5.42 M/mm3 (4.00-5.60); RDW 14.2 % (11.9-15.9); WHITE BLOOD COUNT 9.1 K/mm3 (4.0-10.0)
[2018-04-20 04:02] LABS: ALBUMIN 3.4 g/dl (3.4-5.0); ALK PHOS 114 U/L (45-117); ANION GAP 9 MMOL/L (8-16); BILIRUBIN,TOTAL 0.3 mg/dL (0.2-1); BLOOD UREA NITROGEN 15 mg/dL (7-18); CALCIUM 8.3 mg/dL (8.5-10.1); CHLORIDE 105 mmol/L (98-107); CO2 24 mmol/L (21-32); CREATININE 0.7 mg/dL (0.55-1.3); GLUCOSE,RANDOM 99 mg/dL (74-106); POTASSIUM 4.1 mmol/L (3.5-5.1); SGOT/AST 16 U/L (15-37); SGPT/ALT 32 U/L (13-61); SODIUM 138 mmol/L (136-145); TOT PROT 6.8 g/dl (6.4-8.2)
== END 2018-04-20 04:27 | disposition home or self-care (01) ==
LOC: JER 23:30
PROC: 3E03329 Introduction of Other Anti-infective into Peripheral Vein, Percutaneous Approach (ICD-10-PCS; principal; 2018-04-19)
PROC: 3E033NZ Introduction of Analgesics, Hypnotics, Sedatives into Peripheral Vein, Percutaneous Approach (ICD-10-PCS; 2018-04-19)
PROC: 3E0337Z Introduction of Electrolytic and Water Balance Substance into Peripheral Vein, Percutaneous Approach (ICD-10-PCS; 2018-04-19)
DX: N45.1 Epididymitis (principal)
CPT/HCPCS: 36415; 76870-TC; 80053; 81003; 81015; 85025; 85610; 87086; 96365; 96375; 96376; 99282-25

== ENCOUNTER 2018-05-13 14:30 | Emergency (ER) | payer OTHER ==
--- NOTE | 2018-05-13 14:38 | PDOC ---
Rapid Medical Evaluation Medical Evaluation: Allergies Allergy/AdvReac Type Severity Reaction Status Date / Time phenytoin sodium extended Allergy Intermediate Itching Verified 04/20/18 01:52 [From Dilantin] I have performed a brief in-person evaluation of this patient. The patient presents with a chief complaint of: hx of seizures, hep C, C/O L flank pain x 2 days. denies fever, abd pain, n/v/d, hematuria. Has mild dysuria Pertinent physical exam findings: Abdomen soft, ND; mild TTP along L flank I have ordered the following: Labs The patient will proceed to the ED for further evaluation. 05/13/18 14:35
[2018-05-13 14:39] VITALS: BP 163/104; PULSE 73; TEMP 98.1; BMI 39.9
[2018-05-13 15:03] LABS: BASO % 0.4 % (0-2.0); EOS % 8.9 % (0-4.5); HEMATOCRIT 43.1 % (35.4-49); HEMOGLOBIN 13.4 GM/dL (11.7-16.9); LYMPH % 37.8 % (8-40); MCH 22.1 pg (25.7-33.7); MEAN CELL VOLUME 71.4 fl (80-96); MEAN PLT VOLUME 8.4 fl (7.5-11.1); NEUT % 43.9 % (42.8-82.8); PLATELET COUNT 179 K/MM3 (134-434); RBC 6.04 M/mm3 (4.00-5.60); RDW 14.5 % (11.9-15.9); URINE APPEARANCE CLEAR; URINE BILIRUBIN NEGATIVE (<2.0 mg/dL); URINE COLOR YELLOW; URINE GLUCOSE (UA) NEGATIVE (NEGATIVE); URINE KETONE NEGATIVE (NEGATIVE); URINE LEUK ESTERASE NEGATIVE (NEGATIVE); URINE NITRITE NEGATIVE (NEGATIVE); URINE PROTEIN NEGATIVE (NEGATIVE)
[2018-05-13 15:31] LABS: ALBUMIN 3.8 g/dl (3.4-5.0); ALK PHOS 126 U/L (45-117); ANION GAP 6 MMOL/L (8-16); BILIRUBIN,TOTAL 0.3 mg/dL (0.2-1); BLOOD UREA NITROGEN 13 mg/dL (7-18); CALCIUM 8.6 mg/dL (8.5-10.1); CHLORIDE 105 mmol/L (98-107); CO2 28 mmol/L (21-32); CREATININE 0.8 mg/dL (0.55-1.3); GLUCOSE,RANDOM 99 mg/dL (74-106); POTASSIUM 3.9 mmol/L (3.5-5.1); SGOT/AST 36 U/L (15-37); SGPT/ALT 58 U/L (13-61); SODIUM 139 mmol/L (136-145); TOT PROT 7.3 g/dl (6.4-8.2)
--- NOTE | 2018-05-13 17:35 | PDOC ---
Attending Attestation - HPI HPI: 05/13/18 17:48 The patient is a 42 year old male, with a significant PMH of seizures, hep C, HTN, and kidney stones who presents to the emergency department with right lower rib pain after coughing this morning. Patient denies any other symptoms. Patient reports he had an ultrasound done 6 months ago showing 3 stones on the left, one of which he passed on his own. Patient states he saw blood in his urine 1 week ago that has since resolved. Patient follows with a urologist, Dr. Dozier. The patient denies chest pain, shortness of breath, headache and dizziness. Denies fever, chills, nausea, vomit, diarrhea and constipation. Denies dysuria, frequency, urgency and hematuria. Allergies: NKA Past surgical history: None reported. Social history: No reported alcohol, drug or cigarette use. PCP: Dr. Joseph - Physicial Exam PE: 05/13/18 18:12 ADULT PHYSICAL EXAM Constitutional: Awake, alert, oriented. No acute distress. Head: Normocephalic. Atraumatic Eyes: PERRL. EOMI. Conjunctivae are not pale. ENT: Mucous membranes are moist and intact. Posterior pharynx without exudates or erythema. Uvula midline. Neck: Supple. Full ROM. No lymphadenopathy. Cardiovascular: Regular rate. Regular rhythm. S1, S2 regular. Distal pulses are 2+ and symmetric. Pulmonary/Chest: No evidence of respiratory distress. Clear to auscultation bilaterally No wheezing, rales or rhonchi. (+) Reproducible, right lower rib pain that is worse with coughing. Abdominal: (+) Obese. Soft and non-tender. No rebound, guarding or rigidity. No organomegaly. No palpable masses. Good bowel sounds. Back: No CVA tenderness. Musculoskeletal: No edema. Skin: Skin is warm and dry. No petechiae. No purpura. Neurological: Alert and oriented to person, place, and time. Cranial nerves II -XII are grossly intact. Normal speech. Strength is grossly symmetric. No sensory deficits. Psychiatric: Good eye contact. Normal interaction, affect and behavior. <Radha Zimmerman - Last Filed: 05/13/18 18:39> - Resident Resident Name: Jaelyn Jimenez - ED Attending Attestation I have performed the following: I have examined & evaluated the patient, The case was reviewed & discussed with the resident, I agree w/resident's findings & plan, Exceptions are as noted - Medical Decision Making 05/13/18 17:35 I, Dr. Radha Aguirre, DO, attest that this document has been prepared under my direction and personally reviewed by me in its entirety. I further attest, that it accurately reflects all work, treatment, procedures and medical decision -making performed by me. 05/13/18 19:26 a/p: 42yo male with R flank pain -pt states R lower rib pain when he coughed this AM -R flank pain worse with movement -no f/c -no dysuria or hematuria -recently treated for uti - finished abx -no abd pain, no radiation of the pain -R sided lower rib pain with movement -suspect MSK pain -labs sent from [facility] were negative for blood in urine or joselyn -renal ultrasound is negative for hydro -cxr clear -pt given toradol for pain and feels better -he is stable for dc to home and follow up with his PMD <Radha Aguirre - Last Filed: 05/13/18 19:28>
[2018-05-13] MEDS ORDERED: KETOROLAC TROMETHAMINE 60 MG/2 ML VIAL IM ONE (17:36)
[2018-05-13] MEDS ORDERED: KETOROLAC TROMETHAMINE 60 MG/2 ML VIAL ONE (17:51)
--- NOTE | 2018-05-13 18:01 | PDOC ---
History of Present Illness - General Chief Complaint: Pain, Acute Stated Complaint: KIDNEY STONE Time Seen by Provider: 05/13/18 16:55 - History of Present Illness Initial Comments: 42yo M with PMH of seizures, HTN, kidney stones presenting with R. flank pain. Patient states the pain started earlier this morning and describes it as a ' stabbing.' He says this pain is similar to that of pain he has had from kidney stones in the past. Patient has not taken anything for his pain. He noticed one episode of hematuria about one week ago. Denies abdominal pain, nausea, or vomiting. Last bowel movement was a normal formed brown stool without blood today. Denies fevers, chills, chest pain, or shortness of breath. Past History - Past Medical History Allergies/Adverse Reactions: Allergies Allergy/AdvReac Type Severity Reaction Status Date / Time phenytoin sodium extended Allergy Intermediate Itching Verified 05/13/18 14:38 [From Dilantin] Anemia: No Asthma: No Cancer: No Cardiac Disorders: No CVA: No COPD: No CHF: No Dementia: No Diabetes: No GI Disorders: No Disorders: No HTN: No Hypercholesterolemia: No Kidney Stones: Yes Liver Disease: Yes (hep C) Seizures: Yes Thyroid Disease: No - Surgical History Abdominal Surgery: No Appendectomy: No Cardiac Surgery: No Cholecystectomy: No Lung Surgery: No Neurologic Surgery: Yes Orthopedic Surgery: No - Immunization History Immunization Up to Date: Yes - Suicide/Smoking/Psychosocial Hx Smoking History: Never smoked Have you smoked in the past 12 months: No Number of Cigarettes Smoked Daily: 20 Information on smoking cessation initiated: No 'Breaking Loose' booklet given: 07/01/17 Hx Alcohol Use: No Drug/Substance Use Hx: No Substance Use Type: None Review of Systems - Review of Systems Comments:: Constitutional: no fever, no chills HEENT: no throat pain, no dysphagia Cardiovascular: no chest pain, no palpitations Respiratory: no cough, no shortness of breath Gastrointestinal: no abdominal pain, no nausea, no vomiting Genitourinary: +dysuria, no frequency, +R. CVA tenderness Musculoskeletal: no myalgia, no arthralgia Skin: no rash, no itching Neurologic: no headache, no dizziness *Physical Exam - Vital Signs Last Vital Signs Temp Pulse Resp BP Pulse Ox 98.1 F 73 16 163/104 H 100 05/13/18 14:36 05/13/18 14:36 05/13/18 14:36 05/13/18 14:36 05/13/18 14:36 - Physical Exam Comments: General: Awake, alert, and fully oriented, in no acute distress Head: No signs of trauma Eyes: EOMI, sclera anicteric ENT: Moist mucus membranes Neck: Normal ROM, supple Lungs: Lungs clear, Normal breath sounds Cardio: Regular rhythm, S1 and S2 present Abdomen: Soft, nontender. No guarding, no rebound, no masses. +R. CVA tenderness , no L. CVA tenderness Extremities: Normal range of motion, Distal pulses present SKIN: Warm, Dry, normal turgor Neurologic: Cranial nerves II through XII grossly intact. Normal speech Moderate Sedation - Procedure Monitoring Vital Signs: Procedure Monitoring Vital Signs Temperature 98.1 F 05/13/18 14:36 Pulse Rate 73 05/13/18 14:36 Respiratory Rate 16 05/13/18 14:36 Blood Pressure 163/104 H 05/13/18 14:36 O2 Sat by Pulse Oximetry (%) 100 05/13/18 14:36 ED Treatment Course - LABORATORY CBC & Chemistry Diagram: 05/13/18 14:49 05/13/18 14:49 - ADDITIONAL ORDERS Additional order review: Laboratory Results 05/13/18 05/13/18 14:49 14:49 Sodium 139 Potassium 3.9 Chloride 105 Carbon Dioxide 28 Anion Gap 6 L BUN 13 Creatinine 0.8 Creat Clearance w eGFR > 60 Random Glucose 99 Calcium 8.6 Total Bilirubin 0.3 AST 36 ALT 58 Alkaline Phosphatase 126 H Total Protein 7.3 Albumin 3.8 Urine Color Yellow Urine Appearance Clear Urine pH 5.0 D Ur Specific [place] 1.025 Urine Protein Negative Urine Glucose (UA) Negative Urine Ketones Negative Urine Blood Negative Urine Nitrite Negative Urine Bilirubin Negative Urine Urobilinogen 2.0 Ur Leukocyte Esterase Negative 05/13/18 14:49 RBC 6.04 H MCV 71.4 L MCHC 31.0 L RDW 14.5 MPV 8.4 Neutrophils % 43.9 D Lymphocytes % 37.8 D Monocytes % 9.0 Eosinophils % 8.9 H Basophils % 0.4 - RADIOLOGY Radiology Studies Ordered: Category Date Time Status KIDNEY / RENAL US [US] Stat Ultrasound 05/13/18 17:35 Ordered Medical Decision Making - Medical Decision Making 42yo M with PMH of seizures, HTN, kidney stones presenting with R. flank pain. -DDX includes but not limited to nephrolithiasis, obstructive uropathy, hydronephrosis, MSK pain -R. CVA tenderness vs bony posterior R. rib pain -Labs show no leukocytosis or anemia. No hematuria or UTI -Toradol 60mg IM ordered for analgesia -Renal US ordered to r/o hydronephrosis 05/13/18 17:58 US negative for hydronephrosis Xray negative for acute pathology (my impression) Patient feeling better after receiving toradol Presentation and workup consistent with musculoskeletal pain Discharged 05/13/18 22:00 *DC/Admit/Observation/Transfer Diagnosis at time of Disposition: Musculoskeletal back pain - Discharge Dispostion Disposition: HOME Condition at time of disposition: Improved - Referrals Referrals: Liana Joseph MD [Primary Care Provider] - Cheikh Givens MD [Staff Physician] - - Patient Instructions Printed Discharge Instructions: DI for Musculoskeletal Pain Additional Instructions: You came to the ED for pain on your right side. Blood work and imaging did not show acute pathology. Your pain is likely musculoskeletal. You can take tylenol or motrin for your pain. Follow the instructions on the medication bottle. Follow-up with your primary care doctor if your pain does not resolve in 1-2 weeks. We have also referred you to the neurologist because you report a history of seizures but do not take any seizure medicine. Call and make an appointment at the number provided. RETURN if: you develop high fevers, chills, persistent vomiting, stop urinating , or any new or concerning symptoms. - Post Discharge Activity
[2018-05-13] MEDS ORDERED: ACETAMINOPHEN 325 MG TABLET (FP) PO ONE (18:03)
[2018-05-13] MEDS ORDERED: ACETAMINOPHEN 325 MG TABLET (FP) ONE (19:41)
== END 2018-05-13 19:44 | disposition home or self-care (01) ==
LOC: JER 14:30
PROC: 3E0233Z Introduction of Anti-inflammatory into Muscle, Percutaneous Approach (ICD-10-PCS; principal; 2018-05-13)
DX: M54.9 Dorsalgia, unspecified (principal); I10 Essential (primary) hypertension; Z86.69 Personal history of other diseases of the nervous system and sense organs; Z86.19 Personal history of other infectious and parasitic diseases; Z87.442 Personal history of urinary calculi
CPT/HCPCS: 36415; 71046-TC-FY; 76775-TC; 80053; 81003; 85025; 87086; 99282-25

== ENCOUNTER 2019-03-28 20:35 | Emergency (ER) | payer OTHER ==
[2019-03-28 20:42] VITALS: TEMP 97.8; BMI 38.2
--- NOTE | 2019-03-28 21:19 | PDOC ---
History of Present Illness - General Chief Complaint: Pain Stated Complaint: ABD / BACK PAIN Time Seen by Provider: 03/28/19 21:18 History Source: Patient Exam Limitations: No Limitations - History of Present Illness Initial Comments: 03/28/19 21:19 Juarez Sweeney is a 43M [facility] patient with PMH seizure disorder on Keppra, renal calculus, HTN, and hepatitis presenting with 3 days of nausea/vomiting accompanied by abdominal pain and back/flank pain today. Has had 3 days of back and abdominal pain with nausea and vomiting. Has not taken HTN or seizure medications in 3 days 2/2 N/V One episode of loose bloody stools today. Pain comes and goes, has not taken medications for pain 2/2 N/V. Denies cardiac history. Last seizure 1 month ago. Denies alcohol/drug use, smokes cigarettes. Denies pain associated with meals. Denies chest pain, SOB, dizziness, constipation, diarrhea, fever, cough. Past History - Past Medical History Allergies/Adverse Reactions: Allergies Allergy/AdvReac Type Severity Reaction Status Date / Time phenytoin sodium extended Allergy Intermediate Itching Verified 05/13/18 14:38 [From Dilantin] Home Medications: Ambulatory Orders Ibuprofen 800 mg PO Q8H #9 tablet 03/29/19 Anemia: No Asthma: No Cancer: No Cardiac Disorders: No CVA: No COPD: No CHF: No Dementia: No Diabetes: No GI Disorders: No Disorders: No HTN: No Hypercholesterolemia: No Kidney Stones: Yes Liver Disease: Yes (hep C, liver cyst) Seizures: Yes Thyroid Disease: No - Surgical History Abdominal Surgery: No Appendectomy: No Cardiac Surgery: No Cholecystectomy: No Lung Surgery: No Neurologic Surgery: Yes Orthopedic Surgery: No - Immunization History Immunization Up to Date: Yes - Psycho Social/Smoking Cessation Hx Smoking History: Never smoked Have you smoked in the past 12 months: No Number of Cigarettes Smoked Daily: 20 'Breaking Loose' booklet given: 07/01/17 Hx Alcohol Use: No Drug/Substance Use Hx: No Substance Use Type: None Review of Systems - Review of Systems Able to Perform ROS?: Yes Constitutional: No: Chills, Fever HEENTM: No: Symptoms Reported Respiratory: No: Symptoms reported Cardiac (ROS): No: Symptoms Reported ABD/GI: Yes: Nausea, Poor Appetite, Poor Fluid Intake, Vomiting. No: Constipated, Diarrhea : Yes: Flank Pain Musculoskeletal: No: Symptoms Reported Integumentary: No: Symptoms Reported Neurological: No: Symptoms reported Endocrine: No: Symptoms Reported Hematologic/Lymphatic: No: Symptoms Reported All Other Systems: Reviewed and Negative *Physical Exam - Vital Signs Last Vital Signs Temp Pulse Resp BP Pulse Ox 97.8 F 97 H 20 174/120 H 97 03/28/19 20:38 03/28/19 20:38 03/28/19 20:38 03/28/19 20:38 03/28/19 20:38 - Physical Exam General Appearance: Yes: Nourished, Appropriately Dressed, Moderate Distress HEENT: positive: EOMI, MC, Normal Voice, Symmetrical, Pharynx Normal, Hearing Grossly Normal. negative: Scleral Icterus (R), Scleral Icterus (L) Neck: positive: Trachea midline, Supple. negative: Tender, Decreased range of motion, Lymphadenopathy (R), Lymphadenopathy (L) Respiratory/Chest: positive: Lungs Clear, Normal Breath Sounds. negative: Respiratory Distress, Accessory Muscle Use, Crackles, Rales, Rhonchi, Stridor, Wheezing Cardiovascular: positive: Regular Rhythm, Regular Rate Gastrointestinal/Abdominal: positive: Normal Bowel Sounds, Tender, Flat, Soft Musculoskeletal: positive: Normal Inspection, CVA Tenderness (R) Extremity: positive: Normal Capillary Refill, Normal Inspection, Normal Range of Motion. negative: Tender, Pelvis Stable Integumentary: positive: Normal Color, Dry, Warm Neurologic: positive: Fully Oriented, Alert, Normal Mood/Affect, Normal Response ED Treatment Course - LABORATORY CBC & Chemistry Diagram: 03/28/19 22:07 03/28/19 22:07 Medical Decision Making - Medical Decision Making 03/29/19 02:28 Presentation concerning for AAA vs. pancreatitis vs. renal stones vs. biliary pathology vs. diverticulitis. Colicky flank pain consistent with renal calculus , getting spiral CT non-con to evaluate. CBC CMP CP ECG CXR Lipase Coags CT spiral IV Toradol, 1L NS IV, Pepcid/Maalox/Zofran ECG shows NSR with HR 94, QTc 442, no ischemic changes, TWI to V4-V6. 03/29/19 02:26 Re-checked BP 153/91. Signed out to Dr. Montiel. Pending CT scan read. Needs UA still, unless CT shows renal stone. VS stable, patient ambulating and talking. Likely dispo home. Discharge - Discharge Information Problems reviewed: Yes Clinical Impression/Diagnosis: Abdominal pain Qualifiers: Abdominal location: generalized Qualified Code(s): R10.84 - Generalized abdominal pain Condition: Stable Disposition: HOME - Additional Discharge Information Prescriptions: Ibuprofen 800 mg PO Q8H #9 tablet - Follow up/Referral Referrals: Liana Joseph MD [Primary Care Provider] - - Patient Discharge Instructions Patient Printed Discharge Instructions: DI for Kidney Stones Additional Instructions: You were seen and treated in the Emergency Department Drink plenty of fluids and take the prescribed medication as directed. Follow up with your Primary Care Doctor in the next 3-5 days. We sent a medication to your pharmacy, pick it up and take it as prescribed. Continue your home medications as prescribed. Immediately return to the closest Emergency Department if you experience: - worsening symptoms - fevers - severe vomiting - ANYTHING THAT CONCERNS YOU - Post Discharge Activity
[2019-03-28] MEDS ORDERED: ONDANSETRON 4 MG/2 ML VIAL IVPUSH ONE (21:53)
[2019-03-28] MEDS ORDERED: SODIUM CHLORIDE 0.9% 500 ML INFUS.BAG IV ONE (21:53)
[2019-03-28] MEDS ORDERED: FAMOTIDINE 20 MG/50 ML IVPB 20 MG/50 ML MG IVPB ONE ×2 (21:54→23:37)
[2019-03-28] MEDS ORDERED: IBUPROFEN 600 MG TABLET (FP) PO ONE (21:57)
[2019-03-28 22:24] LABS: BASO % 0.4 % (0-2.0); EOS % 3.2 % (0-4.5); HEMATOCRIT 41.8 % (35.4-49); HEMOGLOBIN 13.4 GM/dL (11.7-16.9); LYMPH % 30.4 % (8-40); MCH 22.8 pg (25.7-33.7); MCHC 32.2 g/dl (32.0-35.9); MEAN PLT VOLUME 8.6 fl (7.5-11.1); MONO % 7.9 % (3.8-10.2); NEUT % 58.1 % (42.8-82.8); PLATELET COUNT 201 K/MM3 (134-434); RBC 5.89 M/mm3 (4.00-5.60); RDW 14.4 % (11.9-15.9); WHITE BLOOD COUNT 7.8 K/mm3 (4.0-10.0)
[2019-03-28 22:37] LABS: INR 0.98 (0.83-1.09); PROTHROMBIN TIME (PATIENT) 11.6 SEC (9.7-13.0)
[2019-03-28 22:40] LABS: ACTIVATED PTT 33.1 SECONDS (25.2-36.5)
[2019-03-28 22:55] LABS: MAGNESIUM 2.1 mg/dL (1.8-2.4); PHOSPHOROUS 3.5 mg/dL (2.5-4.9)
[2019-03-28 22:57] LABS: ALBUMIN 3.6 g/dl (3.4-5.0); ALK PHOS 125 U/L (45-117); ANION GAP 4 MMOL/L (8-16); BILIRUBIN,TOTAL 0.2 mg/dL (0.2-1); BLOOD UREA NITROGEN 16.2 mg/dL (7-18); CALCIUM 9.2 mg/dL (8.5-10.1); CHLORIDE 108 mmol/L (98-107); CO2 27 mmol/L (21-32); CREATININE 0.8 mg/dL (0.55-1.3); GLUCOSE,RANDOM 117 mg/dL (74-106); POTASSIUM 3.9 mmol/L (3.5-5.1); SGOT/AST 22 U/L (15-37); SGPT/ALT 43 U/L (13-61); SODIUM 140 mmol/L (136-145)
[2019-03-28] MEDS ORDERED: KETOROLAC TROMETHAMINE 30 MG/1 ML VIAL IVPUSH ONE (23:04)
[2019-03-28] MEDS ORDERED: levETIRAcetam 500 MG/5 ML INJECTION VIAL IVPB ONE (23:12)
[2019-03-28] MEDS ORDERED: KETOROLAC TROMETHAMINE 30 MG/1 ML VIAL ONE (23:37)
[2019-03-28] MEDS ORDERED: ONDANSETRON 4 MG/2 ML VIAL ONE (23:37)
[2019-03-28] MEDS ORDERED: ACETAMINOPHEN 325 MG TABLET (FP) ONE (23:37)
[2019-03-29] MEDS ORDERED: levETIRAcetam 500 MG/5 ML INJECTION VIAL IVPB ONE (00:55)
--- NOTE | 2019-03-29 01:44 | PDOC ---
Documentation entered by Virginia Hunter SCRIBE, acting as scribe for Sammi Diane MD. Sammi Diane MD: This documentation has been prepared by the franciscoibe, Virginia Hunter SCRIBE, under my direction and personally reviewed by me in its entirety. I confirm that the documentation accurately reflects all work, treatment, procedures, and medical decision making performed by me. Attending Attestation - Resident Resident Name: Arian Ansari - ED Attending Attestation I have performed the following: I have examined & evaluated the patient, The case was reviewed & discussed with the resident, I agree w/resident's findings & plan, Exceptions are as noted - HPI HPI: 03/28/19 22:15 The patient is a 43-year-old male with a past medical history significant for HTN, Kidney stones, long-standing hx of Seizures (with no neurology follow up), abnormal EEG 2016 (no seizure was seen) who presents to the emergency department with nausea, vomiting, diarrhea, and headache. The patient reports he s been having 5 days of a headache, un relief with Tylenol, and Advil. The patient reports hes been having 3 days of nausea, vomiting (1-2 episodes a day) , and a 1-day history of diarrhea. The patient reports he has noticed some blood in the stool today. The patient reports an additional complaints of lower back and flank pain. Allergies: phenytoin sodium extended - Physicial Exam PE: 03/28/19 22:25 GENERAL: Afebrile, Well-appearing, well-nourished. No apparent distress. HEENT: Normocephalic, atraumatic. PERRL, EOM intact. CARDIOVASCULAR: Normal S1, S2. Regular rate and rhythm. PULMONARY: Clear to auscultation bilaterally. ABDOMEN: Soft, non-distended, non-tender. BACK: L5 and Flank pain. EXTREMITIES: Normal ROM in all four extremities. No gross deformities. SKIN: Warm, dry. No rash NEUROLOGICAL: No focal neurological deficits. - Medical Decision Making 03/29/19 01:44 cbc,comp,UA, ct scan done 03/29/19 01:45 cbc and chemistries reviewed
--- NOTE | 2019-03-29 02:34 | PDOC ---
*Physical Exam - Vital Signs Last Vital Signs Temp Pulse Resp BP Pulse Ox 97.8 F 97 H 20 174/120 H 97 03/28/19 20:38 03/28/19 20:38 03/28/19 20:38 03/28/19 20:38 03/28/19 20:38 ED Treatment Course - LABORATORY CBC & Chemistry Diagram: 03/28/19 22:07 03/28/19 22:07 - ADDITIONAL ORDERS Additional order review: Laboratory Results 03/28/19 03/28/19 03/28/19 22:07 22:07 22:07 PT with INR 11.60 INR 0.98 PTT (Actin FS) 33.1 Sodium 140 Potassium 3.9 Chloride 108 H Carbon Dioxide 27 Anion Gap 4 L BUN 16.2 Creatinine 0.8 Est GFR (CKD-EPI)AfAm 128.60 Est GFR (CKD-EPI)NonAf 110.96 Random Glucose 117 H Calcium 9.2 Phosphorus 3.5 Magnesium 2.1 Total Bilirubin 0.2 AST 22 ALT 43 Alkaline Phosphatase 125 H Total Protein 7.0 Albumin 3.6 Lipase 73 03/28/19 22:07 RBC 5.89 H MCV 71.0 L MCHC 32.2 RDW 14.4 MPV 8.6 Neutrophils % 58.1 D Lymphocytes % 30.4 Monocytes % 7.9 Eosinophils % 3.2 Basophils % 0.4 - Medications Given in the ED: ED Medications Discontinued Medications Generic Name Dose Route Start Last Admin Trade Name Freq PRN Reason Stop Dose Admin Famotidine/Sodium Chloride 20 mg in 50 mls @ 100 mls/hr 03/28/19 21:54 23:52 Pepcid 20 Mg Premixed Ivpb - IVPB 03/28/19 22:23 100 mls/hr ONCE ONE Administration Ibuprofen 600 mg 03/28/19 21:57 03/28/19 23:53 Motrin - PO 03/28/19 21:58 600 mg ONCE ONE Administration Ketorolac Tromethamine 30 mg 03/28/19 23:04 03/28/19 23:52 Toradol Injection - IVPUSH 03/28/19 23:05 30 mg ONCE ONE Administration Levetiracetam 1,000 mg 03/28/19 23:12 03/29/19 01:25 Keppra Injection - IVPB 03/28/19 23:13 1,000 mg ONCE ONE Administration Ondansetron HCl 4 mg 03/28/19 21:53 03/28/19 23:52 Zofran Injection IVPUSH 03/28/19 21:54 4 mg NOW ONE Administration Sodium Chloride 1,000 ml 03/28/19 21:53 03/29/19 01:25 Normal Saline - IV 03/28/19 21:54 1,000 ml ONCE ONE Administration Medical Decision Making - Medical Decision Making 03/29/19 02:32 signed out from noon team - f/u CT read - likely DC home - if kidney stones: flomax, fluids, uro f/u 03/29/19 03:[address] IOC IMPRESSION: FINDINGS: Basilar dependent atelectasis is noted.. The visualized cardiac chambers are normal size and configuration. Punctate nonobstructing left renal stone was noted. Normal unenhanced liver, gallbladder, pancreas, spleen, adrenal glands and right kidney. The stomach and abdominal small and large bowel are normal. There is no aortic aneurysm. There is no significanTretroperitoneal lymphadenopathy. Sigmoid diverticulosis is noted without diverticulitis. A 3.0 cm focus of fat in pelvic small bowel loop likely represents a lipoma without associated bowel inflammation or obstruction per. The appendix is normal. The urinary bladder and prostate gland are normal. No pelvic free fluid is identified. There is no significant pelvic lymphadenopathy. IMPRESSION: Punctate left renal stone. Sigmoid diverticulosis. Pelvic small bowel lipoma. No definite evidence of acute pathology Reassess 03/29/19 03:15 pain resolved ua dispo 03/29/19 03:20 rpt VS 147/91 SaO2 98% RA RR 12 HR 88 03/29/19 03:[address] report f/u UA 03/29/19 03:47 UA neg Dispo home w/ pcp f/u and return precautions Discharge - Discharge Information Problems reviewed: Yes Clinical Impression/Diagnosis: Abdominal pain Qualifiers: Abdominal location: generalized Qualified Code(s): R10.84 - Generalized abdominal pain Condition: Stable Disposition: HOME - Additional Discharge Information Prescriptions: Ibuprofen 800 mg PO Q8H #9 tablet - Follow up/Referral Referrals: Liana Joseph MD [Primary Care Provider] - - Patient Discharge Instructions Patient Printed Discharge Instructions: DI for Kidney Stones Additional Instructions: You were seen and treated in the Emergency Department Drink plenty of fluids and take the prescribed medication as directed. Follow up with your Primary Care Doctor in the next 3-5 days. We sent a medication to your pharmacy, pick it up and take it as prescribed. Continue your home medications as prescribed. Immediately return to the closest Emergency Department if you experience: - worsening symptoms - fevers - severe vomiting - ANYTHING THAT CONCERNS YOU - Post Discharge Activity
[2019-03-29 03:40] LABS: URINE APPEARANCE CLOUDY; URINE BILIRUBIN NEGATIVE (NEGATIVE); URINE COLOR DK YELLOW; URINE GLUCOSE (UA) NEGATIVE (NEGATIVE); URINE KETONE TRACE (NEGATIVE); URINE LEUK ESTERASE NEGATIVE (NEGATIVE); URINE NITRITE NEGATIVE (NEGATIVE); URINE PROTEIN TRACE (NEGATIVE)
[2019-03-29 05:03] VITALS: BP 150/80; PULSE 85
--- NOTE | 2019-03-29 10:03 | EKG ---
Test Reason : Blood Pressure : / mmHG Vent. Rate : 094 BPM Atrial Rate : 094 BPM P-R Int : 166 ms QRS Dur : 090 ms QT Int : 354 ms P-R-T Axes : 041 020 006 degrees QTc Int : 442 ms NORMAL SINUS RHYTHM WHEN COMPARED WITH ECG OF 11-APR-2018 18:45, T WAVE VARIATION Confirmed by VICKY BECKMAN MD ([id number]) on 03/29/2019 10:02:34 AM Referred By: Confirmed By:VICKY BECKMAN MD
== END 2019-03-29 03:55 | disposition home or self-care (01) ==
LOC: JER 20:35
PROC: 3E033GC Introduction of Other Therapeutic Substance into Peripheral Vein, Percutaneous Approach (ICD-10-PCS; principal; 2019-03-28)
PROC: 3E033GC Introduction of Other Therapeutic Substance into Peripheral Vein, Percutaneous Approach (ICD-10-PCS; 2019-03-28)
PROC: 3E033GC Introduction of Other Therapeutic Substance into Peripheral Vein, Percutaneous Approach (ICD-10-PCS; 2019-03-28)
PROC: 3E0333Z Introduction of Anti-inflammatory into Peripheral Vein, Percutaneous Approach (ICD-10-PCS; 2019-03-28)
DX: R10.84 Generalized abdominal pain (principal); N20.0 Calculus of kidney; Z87.442 Personal history of urinary calculi; I10 Essential (primary) hypertension; G40.909 Epilepsy, unspecified, not intractable, without status epilepticus; K75.9 Inflammatory liver disease, unspecified; Z88.8 Allergy status to other drugs, medicaments and biological substances
CPT/HCPCS: 36415; 74176-TC; 80053; 81003; 82550; 83690; 83735; 84100; 84484; 85025; 85610; 85730; 93005; 93010; 96365; 96375; 99284-25

== ENCOUNTER 2019-07-01 07:05 | Emergency (ER) | payer OTHER ==
[2019-07-01 07:15] VITALS: BMI 38.2
--- NOTE | 2019-07-01 07:24 | PDOC ---
Attending Attestation - Resident Resident Name: Steve Jeffrey - HPI HPI: 07/01/19 09:32 Pt presents to the ED complaining of the acute onset of severe, tearing back pain that started this AM. Patient was able to ambulate with moderate pain, but then had acute, severe pain that prevented him from moving. Patient was in severe pain, and severely tachycardic and hypertensive on arrival to the ED. - Physicial Exam PE: 07/01/19 10:55 agree with resident exam. PAtient is agitated and in severe distress. CV: rrr no m/r/g Pulm: CTA b/l Abdomen: soft, non tender, non distended without guarding or rebound. - Critical Care Time Total Critical Care Time: 45 Critical Care Statement: The care of this patient involved high complexity decision making to prevent further life threatening deterioration of the patient 's condition and/or to evaluate & treat vital organ system(s) failure or risk of failure. - Medical Decision Making 07/01/19 11:00 Pt presents to the ED complaining of severe back pain. Extremely hypertensive on arrival to the ED. EKG shows sinus tachycardia. Concern for aortic dissection, so patient taken emergently to CTA. Started on esmolol drip. CTA read as suspicious for dissection by radiology. Transferred to [facility] for ascending aortic dissection. BP uncontrolled despite maximal esmolol, so nitroprusside drip started immediately pripr to EMS arrival. 07/01/19 11:02
--- NOTE | 2019-07-01 07:25 | PDOC ---
History of Present Illness - General Chief Complaint: Vomiting Blood Stated Complaint: PAIN UPPER BACK,VOMITING Time Seen by Provider: 07/01/19 07:21 History Source: Patient Exam Limitations: No Limitations Past History - Past Medical History Allergies/Adverse Reactions: Allergies Allergy/AdvReac Type Severity Reaction Status Date / Time phenytoin sodium extended Allergy Intermediate Itching Verified 07/01/19 07:12 [From Dilantin] Anemia: No Asthma: No Cancer: No Cardiac Disorders: No CVA: No COPD: No CHF: No Dementia: No Diabetes: No GI Disorders: No Disorders: Yes (renal stones) HTN: No Hypercholesterolemia: No Kidney Stones: Yes Liver Disease: Yes (hep C, liver cyst) Seizures: Yes Thyroid Disease: No - Surgical History Abdominal Surgery: No Appendectomy: No Cardiac Surgery: No Cholecystectomy: No Lung Surgery: No Neurologic Surgery: Yes Orthopedic Surgery: No - Immunization History Immunization Up to Date: Yes - Psycho Social/Smoking Cessation Hx Smoking History: Unknown if ever smoked Have you smoked in the past 12 months: No Number of Cigarettes Smoked Daily: 20 'Breaking Loose' booklet given: 07/01/17 Hx Alcohol Use: No Drug/Substance Use Hx: No Substance Use Type: None *Physical Exam - Vital Signs Last Vital Signs Temp Pulse Resp BP Pulse Ox 98.6 F 110 H 22 H 193/115 H 100 07/01/19 07:14 07/01/19 07:14 07/01/19 07:14 07/01/19 07:14 07/01/19 07:14
[2019-07-01] MEDS ORDERED: MORPHINE SULFATE 2 MG/ML VIAL ONE ×2 (07:43→07:51)
[2019-07-01] MEDS ORDERED: morphine SULFATE 4 MG/ML VIAL ONE (07:43)
[2019-07-01] MEDS ORDERED: morphine CARPU-JECT 4 MG/1 ML DISP.SYRIN IVPUSH ONE (07:51)
[2019-07-01] MEDS ORDERED: morphine CARPU-JECT 2 MG/1 ML DISP.SYRIN IVPUSH ONE ×2 (07:51→08:24)
[2019-07-01] MEDS ORDERED: ESMOLOL 2500 MG/250 ML 2,500,000 MCG/250 ML INFUS.BAG IVPB ONE (07:57)
[2019-07-01] MEDS ORDERED: ESMOLOL 2500 MG/250 ML 2,500,000 MCG/250 ML INFUS.BAG IVPB SCH (08:15)
--- NOTE | 2019-07-01 08:26 | PDOC ---
History of Present Illness - General Chief Complaint: Vomiting Blood Stated Complaint: PAIN UPPER BACK,VOMITING Time Seen by Provider: 07/01/19 07:21 - History of Present Illness Initial Comments: 07/01/19 09:16 44M, pmh of seizures (suspected secondary to etoh abuse) and hepatitis C who presents with tearing back pain since this morning that happened suddenly while he was praying. He is writhing in pain and unable to articulate any further history. Son at the bedside saying that he vomited blood this morning. Past History - Past Medical History Allergies/Adverse Reactions: Allergies Allergy/AdvReac Type Severity Reaction Status Date / Time phenytoin sodium extended Allergy Intermediate Itching Verified 07/01/19 07:12 [From Dilantin] Anemia: No Asthma: No Cancer: No Cardiac Disorders: No CVA: No COPD: No CHF: No Dementia: No Diabetes: No GI Disorders: No Disorders: Yes (renal stones) HTN: No Hypercholesterolemia: No Kidney Stones: Yes Liver Disease: Yes (hep C, liver cyst) Seizures: Yes Thyroid Disease: No - Surgical History Abdominal Surgery: No Appendectomy: No Cardiac Surgery: No Cholecystectomy: No Lung Surgery: No Neurologic Surgery: Yes Orthopedic Surgery: No - Immunization History Immunization Up to Date: Yes - Psycho Social/Smoking Cessation Hx Smoking History: Unknown if ever smoked Have you smoked in the past 12 months: No Number of Cigarettes Smoked Daily: 20 'Breaking Loose' booklet given: 07/01/17 Hx Alcohol Use: No Drug/Substance Use Hx: No Substance Use Type: None Cardiac Specific PMH - Complaint Specific PMHX Pacemaker: No Review of Systems - Review of Systems Able to Perform ROS?: No (due to acute distress) *Physical Exam - Vital Signs Last Vital Signs Temp Pulse Resp BP Pulse Ox 98.6 F 84 22 H 168/116 H 100 07/01/19 07:14 07/01/19 09:09 07/01/19 07:14 07/01/19 09:09 07/01/19 07:14 - Physical Exam General Appearance: Yes: Severe Distress HEENT: positive: EOMI, CM, Normal ENT Inspection Respiratory/Chest: positive: Lungs Clear, Normal Breath Sounds. negative: Chest Tender, Respiratory Distress Cardiovascular: positive: Regular Rhythm, S1, S2, Tachycardia Gastrointestinal/Abdominal: positive: Normal Bowel Sounds, Flat, Soft. negative : Tender Musculoskeletal: positive: Normal Inspection Extremity: positive: Normal Capillary Refill, Normal Inspection, Normal Range of Motion ED Treatment Course - LABORATORY CBC & Chemistry Diagram: 07/01/19 07:30 07/01/19 08:30 - ADDITIONAL ORDERS Additional order review: Laboratory Results 07/01/19 07/01/19 07/01/19 08:30 07:58 07:30 PT with INR INR PTT (Actin FS) VBG pH 7.39 POC VBG pCO2 46.7 POC VBG pO2 < 49 H VBG HCO3 27.9 VBG O2 Sat (Trung) 77.0 VBG Base Excess 2.8 H Sodium 138 Potassium 3.9 Chloride 103 Carbon Dioxide 27 Anion Gap 7 L BUN 13.2 Creatinine 0.8 Est GFR (CKD-EPI)AfAm 127.70 Est GFR (CKD-EPI)NonAf 110.18 Random Glucose 121 H Lactic Acid 1.6 Calcium 9.3 Total Bilirubin 0.4 AST 27 ALT 57 Alkaline Phosphatase 145 H Creatine Kinase Troponin I Total Protein 7.9 Albumin 3.9 07/01/19 07/01/19 07:30 07:30 PT with INR 11.90 INR 1.01 PTT (Actin FS) 36.3 VBG pH POC VBG pCO2 POC VBG pO2 VBG HCO3 VBG O2 Sat (Trung) VBG Base Excess Sodium Potassium Chloride Carbon Dioxide Anion Gap BUN Creatinine Est GFR (CKD-EPI)AfAm Est GFR (CKD-EPI)NonAf Random Glucose Lactic Acid Calcium Total Bilirubin AST ALT Alkaline Phosphatase Creatine Kinase 104 Troponin I < 0.02 Total Protein Albumin 07/01/19 07:30 RBC 6.33 H MCV 70.6 L MCHC 32.8 RDW 14.4 MPV 8.8 Neutrophils % 57.3 Lymphocytes % 31.7 Monocytes % 7.6 Eosinophils % 3.1 Basophils % 0.3 - Medications Given in the ED: ED Medications Discontinued Medications Generic Name Dose Route Start Last Admin Trade Name Freq PRN Reason Stop Dose Admin Morphine Sulfate 4 mg 07/01/19 07:51 07/01/19 07:40 Morphine Injection - IVPUSH 07/01/19 07:52 4 mg ONCE ONE Administration Morphine Sulfate 2 mg 07/01/19 07:51 07/01/19 07:40 Morphine Injection - IVPUSH 07/01/19 07:52 2 mg ONCE ONE Administration Morphine Sulfate 2 mg 07/01/19 08:24 07/01/19 07:50 Morphine Injection - IVPUSH 07/01/19 08:25 2 mg ONCE ONE Administration Medical Decision Making - Medical Decision Making 07/01/19 09:32 Patient given morphine for pain, took immediately to ct scan for dissection protocol. CTA read as positive for ascending dissection. Esmolol drip started, however patient still has a diastolic above 100 and rate in the 80's. PAtient transfered to [facility] under Dr. Head with CT surgery, going directly to the OR. Nitro drip started before patient left the facility. Discharge - Discharge Information Problems reviewed: Yes Clinical Impression/Diagnosis: Ascending aortic dissection Condition: Stable Disposition: TRANSFER ACUTE CARE/OTHER HOSP - Follow up/Referral Referrals: Liana Joseph MD [Primary Care Provider] - - Patient Discharge Instructions - Post Discharge Activity - Transfer to Acute Care Facility Receiving Facility Name: [facility] Accepting Physician:: Dr. Head
[2019-07-01 08:37] LABS: VENOUS PC02 46.7 mmHg (38-52); VENOUS PH 7.39 (7.31-7.41)
[2019-07-01 08:38] LABS: VENOUS PO2 < 49 mmHg (28-48)
[2019-07-01 08:53] LABS: BASO % 0.3 % (0-2.0); EOS % 3.1 % (0-4.5); HEMATOCRIT 44.6 % (35.4-49); HEMOGLOBIN 14.6 GM/dL (11.7-16.9); LYMPH % 31.7 % (8-40); MCH 23.1 pg (25.7-33.7); MCHC 32.8 g/dl (32.0-35.9); MEAN CELL VOLUME 70.6 fl (80-96); MEAN PLT VOLUME 8.8 fl (7.5-11.1); MONO % 7.6 % (3.8-10.2); NEUT % 57.3 % (42.8-82.8); PLATELET COUNT 213 K/MM3 (134-434); RBC 6.33 M/mm3 (4.00-5.60); RDW 14.4 % (11.9-15.9); WHITE BLOOD COUNT 7.5 K/mm3 (4.0-10.0)
[2019-07-01 08:56] LABS: INR 1.01 (0.83-1.09); PROTHROMBIN TIME (PATIENT) 11.9 SEC (9.7-13.0)
[2019-07-01 08:59] LABS: ACTIVATED PTT 36.3 SECONDS (25.2-36.5)
[2019-07-01 09:10] LABS: ALBUMIN 3.9 g/dl (3.4-5.0); BILIRUBIN,TOTAL 0.4 mg/dL (0.2-1); BLOOD UREA NITROGEN 13.2 mg/dL (7-18); CALCIUM 9.3 mg/dL (8.5-10.1); CREATININE 0.8 mg/dL (0.55-1.3); POTASSIUM 3.9 mmol/L (3.5-5.1); TOT PROT 7.9 g/dl (6.4-8.2)
[2019-07-01] MEDS ORDERED: NITROGLYCERIN 25MG/D5W 250ML 25 MG/250 ML ML IVPB ONE (09:24)
[2019-07-01] MEDS ORDERED: NITROPRUSSIDE SODIUM 50,000 MCG in DEXTROSE 5%-WATER - 248 ML IVPB SCH (09:30)
[2019-07-01 09:48] VITALS: BP 176/117; PULSE 103; TEMP 98.5
--- NOTE | 2019-07-03 17:29 | EKG ---
Test Reason : Blood Pressure : / mmHG Vent. Rate : 104 BPM Atrial Rate : 104 BPM P-R Int : 160 ms QRS Dur : 100 ms QT Int : 348 ms P-R-T Axes : 061 031 045 degrees QTc Int : 457 ms SINUS TACHYCARDIA NONSPECIFIC T WAVE ABNORMALITY ABNORMAL ECG WHEN COMPARED WITH ECG OF 28-MAR-2019 23:08, NONSPECIFIC T WAVE ABNORMALITY NO LONGER EVIDENT IN INFERIOR LEADS CLINICAL CORRELATION IS RECOMMENDED BASELINE ARTIFACT / WANDER Confirmed by IFTIKHAR PEREZ, ROBERT ([id number]) on 07/03/2019 5:28:53 PM Referred By: Confirmed By:ROBERT BUITRAGO MD
== END 2019-07-01 09:30 | disposition short-term general hospital (02) ==
LOC: JER 07:05
PROC: 3E033NZ Introduction of Analgesics, Hypnotics, Sedatives into Peripheral Vein, Percutaneous Approach (ICD-10-PCS; principal; 2019-07-01)
DX: I71.00 Dissection of unspecified site of aorta (principal); I10 Essential (primary) hypertension; B18.2 Chronic viral hepatitis C; Z87.442 Personal history of urinary calculi
CPT/HCPCS: 36415; 71275-TC; 74174-TC; 80053; 82550; 82803; 83605; 84484; 85025; 85610; 85730; 93005; 93010; 99291; Q9967

== ENCOUNTER 2019-07-20 07:31 | Emergency (ER) | payer OTHER ==
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
[2019-07-20] MEDS ORDERED: LABETALOL HCL 5 MG/1 ML (100MG/20 ML VIAL) IVPUSH ONE (07:52)
[2019-07-20 07:55] VITALS: TEMP 98; BMI 39.9
[2019-07-20] MEDS ORDERED: HYDROmorphone HCL CARPU-JECT 2 MG/1 ML DISP.SYRIN IVPUSH ONE (07:56)
[2019-07-20] MEDS ORDERED: HYDROmorphone HCl 2 MG/ML VIAL ONE (07:58)
[2019-07-20] MEDS ORDERED: LABETALOL HCL 5 MG/1 ML (200MG/40ML VIAL) IVPB ONE (08:22)
[2019-07-20 08:49] LABS: BASO % 0.4 % (0-2.0); EOS % 4.3 % (0-4.5); HEMATOCRIT 42.2 % (35.4-49); HEMOGLOBIN 13.5 GM/dL (11.7-16.9); LYMPH % 38.6 % (8-40); MCH 22.6 pg (25.7-33.7); MEAN CELL VOLUME 70.6 fl (80-96); MEAN PLT VOLUME 8.7 fl (7.5-11.1); MONO % 8.6 % (3.8-10.2); NEUT % 48.1 % (42.8-82.8); PLATELET COUNT 175 K/MM3 (134-434); RBC 5.98 M/mm3 (4.00-5.60); RDW 14.5 % (11.9-15.9); WHITE BLOOD COUNT 5.5 K/mm3 (4.0-10.0)
[2019-07-20 09:27] LABS: ALBUMIN 3.5 g/dl (3.4-5.0); ALK PHOS 128 U/L (45-117); ANION GAP 7 MMOL/L (8-16); BILIRUBIN,TOTAL 0.2 mg/dL (0.2-1); BLOOD UREA NITROGEN 9.7 mg/dL (7-18); CALCIUM 8.7 mg/dL (8.5-10.1); CHLORIDE 105 mmol/L (98-107); CO2 26 mmol/L (21-32); CREATININE 0.7 mg/dL (0.55-1.3); GLUCOSE,RANDOM 102 mg/dL (74-106); MAGNESIUM 2.2 mg/dL (1.8-2.4); SGOT/AST 18 U/L (15-37); SGPT/ALT 41 U/L (13-61); SODIUM 138 mmol/L (136-145)
[2019-07-20] MEDS ORDERED: KETOROLAC TROMETHAMINE 15 MG/ML VIAL IVPUSH ONE (09:52)
[2019-07-20] MEDS ORDERED: KETOROLAC TROMETHAMINE 15 MG/ML VIAL ONE (10:25)
--- NOTE | 2019-07-20 10:33 | EKG ---
Test Reason : Blood Pressure : / mmHG Vent. Rate : 064 BPM Atrial Rate : 064 BPM P-R Int : 166 ms QRS Dur : 090 ms QT Int : 402 ms P-R-T Axes : 025 019 016 degrees QTc Int : 414 ms NORMAL SINUS RHYTHM NONSPECIFIC T WAVE ABNORMALITY ABNORMAL ECG WHEN COMPARED WITH ECG OF 01-JUL-2019 07:20, VENT. RATE HAS DECREASED BY 40 BPM Confirmed by Kareem Keane MD ([id number]) on 07/20/2019 10:32:51 AM Referred By: Confirmed By:Kareem Keane MD
[2019-07-20 10:52] LABS: INR 1.01 (0.83-1.09); PROTHROMBIN TIME (PATIENT) 11.9 SEC (9.7-13.0)
[2019-07-20 10:55] LABS: ACTIVATED PTT 35.6 SECONDS (25.2-36.5)
--- NOTE | 2019-07-20 10:56 | PDOC ---
Attending Attestation - Resident Resident Name: Jaelyn Garcia - ED Attending Attestation I have performed the following: I have examined & evaluated the patient, The case was reviewed & discussed with the resident, I agree w/resident's findings & plan - HPI HPI: 07/20/19 10:51 44-year-old male with history of hypertension, recent presentation for chest pain in the setting of elevated blood pressure with CTA read initially concerning for dissection, transferred to [facility] where further imaging including CT and ROSELYN ruled out dissection and noted previous findings to be consistent with artifact. The patient was discharged home after 3 days, presents now with 3 days of worsening low back pain. Denies any direct injury or strain, admits to being mobile while in the hospital, presents with acute on chronic recurrence of left low back pain that is sharp, worse with initiation of movement, and not associated with any bowel or bladder issues or motor or sensory deficits. Took ibuprofen at home with some relief, presents for evaluation. No fevers or chills, no weight loss or night sweats. - Physicial Exam PE: 07/20/19 10:53 Elevated blood pressure, vitals otherwise normal Obese male lying in stretcher in no acute distress unless attempting positional changes Heart is regular, lungs are clear Abdomen benign No midline spine tenderness to palpation or deformity or step-off, there is left greater than right paraspinal discomfort to palpation without erythema or swelling or hematoma. No saddle anesthesia, normal exam, 5 out of 5 flexion/ extension of bilateral hips/knees/ankles/toes. 2+ distal pulses. - Medical Decision Making 07/20/19 10:54 44-year-old male with history of recurring low back pain presents with atraumatic low back strain without red flags on history or physical exam. Improved at home with ibuprofen, neurologically intact here. Prior to discussion with [facility] treating team, patient was immediately brought for CTA chest/abdomen/pelvis to rule out descending aorta dissection extension, showed previous lesion versus artifact without acute changes. Labs are within normal limits Urinalysis pending - Recently treated for UTI by PCP reassess, dispo accordingly Heart Score/ECG Review #1 ECG reviewed & interpreted by me at: 07:39 General ECG Interpretation: Sinus Rhythm, Normal Rate (64), Normal Intervals ( qtc 414), No acute ischemic changes (TWI lateral leads) Compared to previous ECG there are: No significant change (TWI new compared to but present on 04/06)
[2019-07-20 12:47] LABS: PH,URINE 5.5 (5.0-8.0); URINE APPEARANCE CLEAR; URINE BILIRUBIN NEGATIVE (NEGATIVE); URINE COLOR YELLOW; URINE GLUCOSE (UA) NEGATIVE (NEGATIVE); URINE KETONE NEGATIVE (NEGATIVE)
[2019-07-20 12:48] LABS: EPI CELLS 0.5 /HPF (0-5/HPF); HYALINE CASTS 1.1 /lpf (0-8); URINE BACTERIA 1.4 /hpf (NEGATIVE); URINE LEUK ESTERASE NEGATIVE (NEGATIVE); URINE NITRITE NEGATIVE (NEGATIVE); URINE PROTEIN NEGATIVE (NEGATIVE); URINE RBC 0.5 /hpf (0-4); URINE UROBILINOGEN 0.2 mg/dL (0.2-1.0); URINE WBC 2.3 /hpf (0-5)
[2019-07-20 13:48] VITALS: BP 161/91; PULSE 68
== END 2019-07-20 13:52 | disposition home or self-care (01) ==
LOC: JER 07:31
PROC: 3E0333Z Introduction of Anti-inflammatory into Peripheral Vein, Percutaneous Approach (ICD-10-PCS; principal; 2019-07-20)
PROC: 3E033NZ Introduction of Analgesics, Hypnotics, Sedatives into Peripheral Vein, Percutaneous Approach (ICD-10-PCS; 2019-07-20)
DX: M79.10 Myalgia, unspecified site (principal); I10 Essential (primary) hypertension; Z88.8 Allergy status to other drugs, medicaments and biological substances; B19.20 Unspecified viral hepatitis C without hepatic coma; N20.0 Calculus of kidney
CPT/HCPCS: 36415; 71275-TC; 74174-TC; 80053; 81003; 82550; 83735; 84484; 85025; 85610; 85730; 87086; 93005; 93010; 96374; 96375; 99285-25; Q9967

== ENCOUNTER 2022-11-05 13:31 | Observation (INO) | payer OTHER ==
[2022-11-05] MEDS ORDERED: ASPIRIN 81 MG CHEWABLE TABLETS PO ONE (15:41)
[2022-11-05 15:46] LABS: BASO % 0.4 % (0-2.0); EOS % 5.8 % (0-4.5); HEMATOCRIT 44.3 % (35.4-49); HEMOGLOBIN 14.1 GM/dL (11.7-16.9); LYMPH % 32.9 % (8-40); MCH 22.5 pg (25.7-33.7); MCHC 31.8 g/dl (32.0-35.9); MEAN CELL VOLUME 70.8 fl (80-96); MONO % 10.3 % (3.8-10.2); NEUT % 50.6 % (42.8-82.8); PLATELET COUNT 226 10^3/uL (134-434); RBC 6.26 M/mm3 (4.00-5.60); RDW 14.9 % (11.9-15.9); WHITE BLOOD COUNT 7.6 K/mm3 (4.0-10.0)
[2022-11-05] MEDS ORDERED: ASPIRIN 81 MG CHEWABLE TABLETS ONE (15:50)
[2022-11-05 15:53] LABS: INR 1.03 (0.83-1.09)
[2022-11-05 15:55] LABS: ACTIVATED PTT 32.6 SECONDS (25.2-36.5)
[2022-11-05 15:59] LABS: CHLORIDE 105 mmol/L (98-107); POTASSIUM 3.9 mmol/L (3.5-5.1); SODIUM 139 mmol/L (136-145)
[2022-11-05 16:01] LABS: CALCIUM 9.5 mg/dL (8.5-10.1)
[2022-11-05 16:02] LABS: ALBUMIN 3.9 g/dl (3.4-5.0); ANION GAP 8 MMOL/L (8-16); CO2 27 mmol/L (21-32); GLUCOSE,RANDOM 115 mg/dL (74-106); MAGNESIUM 1.9 mg/dL (1.8-2.4)
[2022-11-05 16:05] LABS: CREATININE 0.8 mg/dL (0.55-1.3); SGOT/AST 20 U/L (15-37); SGPT/ALT 40 U/L (13-61)
[2022-11-05 16:06] LABS: TOT PROT 7.5 g/dl (6.4-8.2)
[2022-11-05 16:07] LABS: BILIRUBIN,TOTAL 0.5 mg/dL (0.2-1)
[2022-11-05 16:08] LABS: ALK PHOS 128 U/L (45-117)
[2022-11-05 17:33] LABS: METHADONE, UR NEGATIVE (NEGATIVE); PHENCYCLIDINE,URINE NEGATIVE (NEGATIVE); URINE AMPHETAMINES NEGATIVE (NEGATIVE); URINE BENZODIAZEPINES NEGATIVE (NEGATIVE)
[2022-11-05 17:34] LABS: COCAINE, UR NEGATIVE (NEGATIVE); OPIATES, URI NEGATIVE (NEGATIVE); URINE BARBITURATES NEGATIVE (NEGATIVE)
[2022-11-05] MEDS ORDERED: levETIRAcetam 500 MG/5 ML INJECTION VIAL IVPB ONE ×2 (21:32→21:41)
[2022-11-06 00:17] VITALS: BMI 38.3
[2022-11-06] MEDS: NICOTINE 14 MG/24 HOURS TOPICAL PATCH TD SCH (00:40)
[2022-11-06 08:42] LABS: BASO % 0.3 % (0-2.0); EOS % 5.7 % (0-4.5); HEMATOCRIT 42.4 % (35.4-49); HEMOGLOBIN 13.6 GM/dL (11.7-16.9); LYMPH % 33.7 % (8-40); MCH 22.5 pg (25.7-33.7); MEAN CELL VOLUME 70.3 fl (80-96); MEAN PLT VOLUME 8.3 fl (7.5-11.1); MONO % 10.6 % (3.8-10.2); NEUT % 49.7 % (42.8-82.8); PLATELET COUNT 191 10^3/uL (134-434); RBC 6.02 M/mm3 (4.00-5.60); RDW 14.5 % (11.9-15.9); WHITE BLOOD COUNT 6.6 K/mm3 (4.0-10.0)
[2022-11-06] MEDS: levETIRAcetam 500 MG TABLET (FP) PO SCH ×2 (09:01→21:09)
[2022-11-06 09:08] LABS: ALBUMIN 3.6 g/dl (3.4-5.0)
[2022-11-06 09:12] LABS: CREATININE 0.8 mg/dL (0.55-1.3)
[2022-11-06 09:13] LABS: TOT PROT 6.8 g/dl (6.4-8.2)
[2022-11-06 09:14] LABS: BILIRUBIN,TOTAL 0.3 mg/dL (0.2-1)
[2022-11-06] MEDS ORDERED: REGADENOSON 0.4 MG/5 ML PRE-FILLED SYRINGE IVPUSH ONE ×2 (09:48→12:00)
[2022-11-06] MEDS ORDERED: KETOROLAC TROMETHAMINE 30 MG/1 ML VIAL IVPUSH ONE (16:50)
[2022-11-06] MEDS ORDERED: CYCLOBENZAPRINE HCL 5 MG TABLET PO ONE (16:50)
[2022-11-06] MEDS ORDERED: ACETAMINOPHEN 325 MG TABLET (FP) PO PRN (17:13)
[2022-11-06] MEDS: LIDOCAINE 5% TOPICAL PATCH TP SCH (17:42)
[2022-11-06 20:10] LABS: EPI CELLS 11 /uL (0-25.1); HYALINE CASTS 1 /uL (0-3.1); URINE APPEARANCE TURBID; URINE BACTERIA 70 /uL (0-1359); URINE BILIRUBIN NEGATIVE (NEGATIVE); URINE COLOR YELLOW; URINE GLUCOSE (UA) NEGATIVE (NEGATIVE); URINE KETONE NEGATIVE (NEGATIVE); URINE LEUK ESTERASE TRACE (NEGATIVE); URINE NITRITE NEGATIVE (NEGATIVE); URINE PROTEIN NEGATIVE (NEGATIVE); URINE RBC 14 /uL (0-23.9); URINE WBC 30 /uL (0-25.8)
[2022-11-06] MEDS: CYCLOBENZAPRINE HCL 5 MG TABLET PO SCH (21:09)
[2022-11-06] MEDS ORDERED: LIDOCAINE PATCH REMOVAL MC SCH (22:00)
[2022-11-07 08:20] LABS: POTASSIUM 4.1 mmol/L (3.5-5.1)
[2022-11-07 08:22] LABS: CALCIUM 8.9 mg/dL (8.5-10.1)
[2022-11-07 08:23] LABS: ALBUMIN 3.3 g/dl (3.4-5.0)
[2022-11-07 08:26] LABS: BLOOD UREA NITROGEN 16.4 mg/dL (7-18); CREATININE 0.8 mg/dL (0.55-1.3)
[2022-11-07 08:27] LABS: TOT PROT 6.7 g/dl (6.4-8.2)
[2022-11-07 08:28] LABS: BILIRUBIN,TOTAL 0.2 mg/dL (0.2-1)
[2022-11-07 08:41] VITALS: BP 140/94; PULSE 65; RESP 18; TEMP 97.9
[2022-11-07] MEDS: LIDOCAINE 5% TOPICAL PATCH TP SCH (11:01)
[2022-11-07] MEDS: levETIRAcetam 500 MG TABLET (FP) PO SCH (11:01)
[2022-11-07] MEDS: CYCLOBENZAPRINE HCL 5 MG TABLET PO SCH (11:02)
[2022-11-07] MEDS: NICOTINE 14 MG/24 HOURS TOPICAL PATCH TD SCH (11:02)
== END 2022-11-07 14:10 | disposition home or self-care (01) ==
LOC: JER 13:31 → JERBED 16:41 → J4W 23:40
PROVIDERS: ADMIT Internal Medicine; ATTEND Internal Medicine
PROC: 3E033GC Introduction of Other Therapeutic Substance into Peripheral Vein, Percutaneous Approach (ICD-10-PCS; principal; 2022-11-05)
DX: R07.89 Other chest pain (principal); I10 Essential (primary) hypertension; M62.838 Other muscle spasm; G40.909 Epilepsy, unspecified, not intractable, without status epilepticus; M54.9 Dorsalgia, unspecified; F17.210 Nicotine dependence, cigarettes, uncomplicated; K76.0 Fatty (change of) liver, not elsewhere classified; R60.0 Localized edema; E66.9 Obesity, unspecified; Z68.38 Body mass index [BMI] 38.0-38.9, adult
CPT/HCPCS: 36415; 70450-TC; 71045-TC-FY; 71250-TC; 72100-TC-FY; 73030-TC-LT-FY; 76705-TC; 78452-TC; 80053; 80061; 80307; 81003; 82550; 82553; 82570; 83036; 83735; 84156; 84484; 85025; 85610; 85730; 86850; 86900; 86901; 93005; 93010; 93017; 93306-TC; 96374; 96375; 99285-25; A9502; G0378; J2785

== ENCOUNTER 2023-03-23 21:35 | Emergency (ER) | payer SELFPAY ==
[2023-03-23 21:40] VITALS: PULSE 96; RESP 18; TEMP 98.2; BMI 37.9
[2023-03-23] MEDS ORDERED: morphine SULFATE 4 MG/ML VIAL IVPUSH ONE (22:20)
[2023-03-23] MEDS ORDERED: LACTATED RINGERS SOLUTION 1000 ML INFUS.BAG IV ONE (22:22)
[2023-03-23] MEDS ORDERED: morphine SULFATE 4 MG/ML VIAL ONE (22:22)
[2023-03-23 22:30] LABS: HEMOGLOBIN 13.3 GM/dL (11.7-16.9); MCHC 30.8 g/dl (32.0-35.9); MEAN CELL VOLUME 71.3 fl (80-96); MEAN PLT VOLUME 8.1 fl (7.5-11.1); PLATELET COUNT 236 10^3/uL (134-434); RBC 6.03 M/mm3 (4.00-5.60); RDW 14.4 % (11.9-15.9)
[2023-03-23 22:37] LABS: EPI CELLS 7 /uL (0-25.1); HYALINE CASTS 1 /uL (0-3.1); PH,URINE 7.5 (5.0-8.0); URINE APPEARANCE CLEAR; URINE BACTERIA 3847 /uL (0-1359); URINE BILIRUBIN NEGATIVE (NEGATIVE); URINE COLOR YELLOW; URINE GLUCOSE (UA) NEGATIVE (NEGATIVE); URINE KETONE NEGATIVE (NEGATIVE); URINE LEUK ESTERASE 3+ (NEGATIVE); URINE NITRITE NEGATIVE (NEGATIVE); URINE PROTEIN 1+ (NEGATIVE); URINE RBC 936 /uL (0-23.9); URINE WBC 445 /uL (0-25.8)
[2023-03-23 22:37] LABS: PROTHROMBIN TIME (PATIENT) 11.6 SEC (9.7-13.0)
[2023-03-23 22:40] LABS: ACTIVATED PTT 29.3 SECONDS (25.2-36.5)
[2023-03-23 22:57] LABS: POTASSIUM 3.9 mmol/L (3.5-5.1)
[2023-03-23 22:59] LABS: CALCIUM 8.8 mg/dL (8.5-10.1)
[2023-03-23 23:00] LABS: ALBUMIN 3.6 g/dl (3.4-5.0); BLOOD UREA NITROGEN 10.9 mg/dL (7-18)
[2023-03-23 23:03] LABS: CREATININE 0.7 mg/dL (0.55-1.3)
[2023-03-23 23:04] LABS: BILIRUBIN,TOTAL 0.2 mg/dL (0.2-1)
[2023-03-23 23:05] LABS: TOT PROT 7.5 g/dl (6.4-8.2)
[2023-03-23] MEDS ORDERED: CEFPODOXIME PROXETIL 200 MG TABLET [NF] PO ONE (23:10)
[2023-03-24 00:16] VITALS: BP 176/96
== END 2023-03-24 00:37 | disposition home or self-care (01) ==
LOC: JER 21:35
PROC: 3E033GC Introduction of Other Therapeutic Substance into Peripheral Vein, Percutaneous Approach (ICD-10-PCS; principal; 2023-03-23)
DX: R10.30 Lower abdominal pain, unspecified (principal); N30.91 Cystitis, unspecified with hematuria; N20.0 Calculus of kidney
CPT/HCPCS: 36415; 71045-TC-FY; 74176-TC; 80053; 81003; 84484; 85027; 85610; 85730; 86850; 86900; 86901; 87086; 93005; 93010; 99285-25

== ENCOUNTER 2023-04-27 17:59 | Emergency (ER) | payer OTHER ==
[2023-04-27 18:06] VITALS: BP 158/85; PULSE 94; RESP 18; TEMP 97.8; BMI 37.9
[2023-04-27] MEDS ORDERED: FAMOTIDINE 20 MG/50 ML IVPB 20 MG/50 ML MG IVPB ONE ×2 (19:38→20:30)
[2023-04-27] MEDS ORDERED: MAG HYDROX/AL HYDROX/SIMETH -MYLANTA- ORAL SUSPENSION PO ONE (19:38)
[2023-04-27] MEDS ORDERED: PANTOPRAZOLE SODIUM 40 MG VIAL IVPUSH ONE (19:39)
[2023-04-27] MEDS ORDERED: ACETAMINOPHEN 1000 MG/100 ML BAG IVPB ONE (19:39)
[2023-04-27] MEDS ORDERED: LACTATED RINGERS SOLUTION 1000 ML INFUS.BAG IV ONE (19:39)
[2023-04-27] MEDS ORDERED: MAG HYDROX/AL HYDROX/SIMETH 30 ML UNIT-DOSE CUP ONE (20:29)
[2023-04-27] MEDS ORDERED: ACETAMINOPHEN INJECTION 100 ML IVPB ONE (20:29)
[2023-04-27] MEDS ORDERED: PANTOPRAZOLE SODIUM 40 MG VIAL ONE (20:30)
[2023-04-27 21:02] LABS: BASO % 0.2 % (0-2.0); EOS % 2.9 % (0-4.5); HEMATOCRIT 44.3 % (35.4-49); HEMOGLOBIN 14.1 GM/dL (11.7-16.9); LYMPH % 20.4 % (8-40); MCH 22.1 pg (25.7-33.7); MCHC 31.9 g/dl (32.0-35.9); MEAN CELL VOLUME 69.3 fl (80-96); MEAN PLT VOLUME 8.2 fl (7.5-11.1); MONO % 5.3 % (3.8-10.2); NEUT % 71.2 % (42.8-82.8); PLATELET COUNT 261 10^3/uL (134-434); RBC 6.39 M/mm3 (4.00-5.60); RDW 14.5 % (11.9-15.9); WHITE BLOOD COUNT 9.1 K/mm3 (4.0-10.0)
[2023-04-27 21:10] LABS: INR 1.09 (0.83-1.09); PROTHROMBIN TIME (PATIENT) 12.6 SEC (9.7-13.0)
[2023-04-27 21:13] LABS: ACTIVATED PTT 31.8 SECONDS (25.2-36.5)
[2023-04-27 21:15] LABS: POTASSIUM 3.7 mmol/L (3.5-5.1)
[2023-04-27 21:18] LABS: ALBUMIN 3.7 g/dl (3.4-5.0); BLOOD UREA NITROGEN 9.6 mg/dL (7-18); MAGNESIUM 2.3 mg/dL (1.8-2.4)
[2023-04-27 21:21] LABS: CREATININE 0.8 mg/dL (0.55-1.3)
[2023-04-27 21:22] LABS: BILIRUBIN,TOTAL 0.4 mg/dL (0.2-1); TOT PROT 7.6 g/dl (6.4-8.2)
[2023-04-27] MEDS ORDERED: AMOX TR/POT CLAV 875MG/125MG TABLETS (FP) PO ONE (22:35)
[2023-04-27] MEDS ORDERED: KETOROLAC TROMETHAMINE 15 MG/ML VIAL IVPUSH ONE (22:36)
[2023-04-27] MEDS ORDERED: AMOX TR/POT CLAV 875MG/125MG TABLETS (FP) ONE (23:04)
[2023-04-27] MEDS ORDERED: KETOROLAC TROMETHAMINE 15 MG/ML VIAL ONE (23:04)
== END 2023-04-27 23:10 | disposition home or self-care (01) ==
LOC: JER 17:59
PROC: 3E03329 Introduction of Other Anti-infective into Peripheral Vein, Percutaneous Approach (ICD-10-PCS; principal; 2023-04-27)
PROC: 3E033NZ Introduction of Analgesics, Hypnotics, Sedatives into Peripheral Vein, Percutaneous Approach (ICD-10-PCS; 2023-04-27)
PROC: 3E0333Z Introduction of Anti-inflammatory into Peripheral Vein, Percutaneous Approach (ICD-10-PCS; 2023-04-27)
PROC: 3E033GC Introduction of Other Therapeutic Substance into Peripheral Vein, Percutaneous Approach (ICD-10-PCS; 2023-04-27)
DX: R10.9 Unspecified abdominal pain (principal); K57.92 Diverticulitis of intestine, part unspecified, without perforation or abscess without bleeding
CPT/HCPCS: 36415; 80053; 83690; 83735; 84484; 85025; 85610; 85730; 86850; 86900; 86901; 99284-25